=== PATIENT | male | born 1940 | race Caucasian/White ===

== ENCOUNTER 2019-08-05 08:17 | Observation (INO) | payer OTHER ==
[2019-08-05] MEDS ORDERED: NA CHLORIDE 0.9% 1,000 ML ONE (08:38)
[2019-08-05 08:50] LABS: Absolute Lymphocytes (CBC) 1.9 K/uL (0.7-4.9); Basophils % 0.8 % (0-1.3); Hematocrit 42.2 % (39.6-49.0); Lymphocytes % 12.9 % (15.3-44.8); MPV 7.9 fL (7.6-11.3); RBC Red Blood Cell Count 4.86 M/uL (4.33-5.43)
[2019-08-05 08:51] LABS: Protime INR 1.18
[2019-08-05] MEDS ORDERED: FAMOTIDINE 20 MG/2 ML VIAL IV ONE (09:01)
[2019-08-05] MEDS ORDERED: METOPROLOL TAR 50 MG TAB ONE (09:01)
--- NOTE | 2019-08-05 09:06 | ER ---
Nurse's Notes [facility] Name: Preet Rios Age: 79 yrs Sex: Male : 1940 Arrival Date: 08/05/2019 Time: 08:19 Bed 4 Private MD: Diagnosis: Chest pain, unspecified;Essential (primary) hypertension;Elevated white blood cell count Presentation: 08/05 08:25 Presenting complaint: Patient states: intermittent chest pain that began yesterday at noon. Jhony cough, fever and/or SOB. Transition of care: patient was not received from another setting of care. Onset of symptoms was August 04, 2019. Risk Assessment: Do you want to hurt yourself or someone else? Patient reports no desire to harm self or others. Initial Sepsis Screen: Does the patient meet any 2 criteria? No. Patient's initial sepsis screen is negative. Does the patient have a suspected source of infection? No. Patient's initial sepsis screen is negative. Care prior to arrival: Medication(s) given: ASA, 81 mg, x 4. 08:25 Method Of Arrival: Ambulatory ss 08:25 Acuity: YULI 3 ss Historical: - Allergies: 08:29 No Known Allergies; ss - Home Meds: 08:29 None [Active]; ss - PMHx: 08:29 Hypertension; resolved after wt loss; ss - PSHx: 08:29 Appendectomy; ss - Immunization history:: Adult Immunizations up to date. - Social history:: Smoking status: Patient/guardian denies using tobacco. - Ebola Screening: : Patient denies exposure to infectious person Patient denies travel to an Ebola-affected area in the 21 days before illness onset. - Family history:: not pertinent. Screenin:30 Abuse screen: Denies threats or abuse. Denies injuries from another. Nutritional sg screening: No deficits noted. Tuberculosis screening: No symptoms or risk factors identified. Never had TB. Fall Risk None identified. Assessment: 08:31 General: Appears in no apparent distress. well groomed, well developed, well nourished, sg Behavior is calm, cooperative, appropriate for age. Pain: Complains of pain in anterior aspect of left upper chest and mid-sternal area Quality of pain is described as aching. Neuro: Level of Consciousness is awake, alert, obeys commands, Oriented to person, place, time, Global Director [employer] Change are equal bilaterally Moves all extremities. Speech is normal, Facial symmetry appears normal. Cardiovascular: Heart tones S1 S2 present Capillary refill is brisk in bilateral fingers Patient's skin is warm and dry. Chest pain is described as mild, is located in anterior chest wall. Respiratory: Airway is patent Respiratory effort is even, unlabored, Respiratory pattern is regular, symmetrical. GI: Abdomen is round non-distended, Reports gaseousness, normal bowel habits, tolerance of fluids, tolerance of food. : No signs and/or symptoms were reported regarding the genitourinary system. EENT: No signs and/or symptoms were reported regarding the EENT system. Derm: Skin is dry, Skin is normal, Skin temperature is warm. Musculoskeletal: Circulation, motion, and sensation intact. Range of motion: intact in all extremities. Vital Signs: 08:24 BP 169 / 77; Pulse 69; Resp 16; Temp 97.2(TE); Pulse Ox 99% on R/A; Weight 99.79 kg; Height 5 ft. 8 in. (172.72 cm); Pain 0/10; 09:10 BP 164 / 78; Pulse 65; Resp 18; Pulse Ox 99% on R/A; Pain 0/10; sg 10:37 BP 123 / 87; Pulse 52; Resp 16; Temp 97.6; Pulse Ox 100% on R/A; ph 08:24 Body Mass Index 33.45 (99.79 kg, 172.72 cm) ED Course: 08:19 Patient arrived in ED. as 08:21 Terrell Flor, RN is Primary Nurse. sg 08:24 Arm band placed on right wrist. ss 08:25 Triage completed. ss 08:26 Bear Mckee MD is Attending Physician. willie 08:30 Patient has correct armband on for positive identification. Bed in low position. Call sg light in reach. Side rails up X2. quality assurance monitor body on. Pulse ox on. NIBP on. Warm blanket given. Head of bed elevated. 08:30 Initial lab(s) drawn, by me, sent to lab. Inserted saline lock: 20 gauge in right sg antecubital area, using aseptic technique. Blood collected. 08:51 XRAY Chest (1 view) In Process Unspecified. EDMS 09:04 Fausto Gruber MD is Hospitalizing Provider. willie 09:27 Warm blanket given. sg 11:35 First set of blood cultures drawn by me. sg 11:45 Second set of blood cultures drawn by me. 11:55 No provider procedures requiring assistance completed. Patient admitted, IV remains in sg place. intact, bleeding controlled, No redness/swelling at site. Pressure dressing applied. Patient maintains SpO2 saturation greater than 95% on room air. Administered Medications: 08:30 Drug: NS 0.9% 1000 ml Route: IV; Rate: 75 ml/hr; Site: right antecubital; sg 09:03 Drug: Lopressor (metoprolol TARTRATE) 50 mg Route: PO; sg 09:04 Not Given (pt reports taking 4 aspirin last night and this AM): Aspirin Chewable Tablet sg 324 mg PO once; 81 mg tablets x 4 09:04 Drug: Pepcid 20 mg Route: IVP; Site: right antecubital; sg 10:58 Drug: Lovenox 1 mg/kg Route: Sub-Q; Site: left lower abdomen; sg 11:40 Drug: morphine 2 mg Route: IVP; Site: right antecubital; sg 11:42 Drug: Zofran 4 mg Route: IVP; Site: right antecubital; sg 11:50 Drug: Rocephin - (cefTRIAXone) 1 grams Route: IVPB; Infused Over: 30 mins; Site: right sg antecubital; Outcome: 09:05 Decision to Hospitalize by Provider. [facility] [place] 11:54 Admitted to [facility] accompanied by tech, via wheelchair, room 429. 11:54 Condition: good 11:54 Instructed on the need for admit, safety practices, Demonstrated understanding of instructions. 11:56 Patient left the ED. Signatures: Dispatcher [employer] EDMS Terrell Flor RN RN Bear Mckee MD MD cha Martinez, Amelia as Smirch, Shelby, RN RN Radha Yates RN RN ph Corrections: (The following items were deleted from the chart) 08:29 08:25 Care prior to arrival: None. [facility]
--- NOTE | 2019-08-05 09:07 | EDPHYS ---
Physician Documentation [facility] Name: Preet Rios Age: 79 yrs Sex: Male : 1940 Arrival Date: 08/05/2019 Time: 08:19 Bed 4 Private MD: ED Physician Bear Mckee HPI: 08/05 08:42 This 79 yrs old Male presents to ER via Ambulatory with complaints of Chest willie Pain > 30 y/o. 08:42 The patient or guardian reports chest pain that is located primarily in the substernal willie area, anterior chest wall, left. Onset: yesterday. The pain radiates to the left arm. Associated signs and symptoms: The patient has no apparent associated signs or symptoms. The chest pain is described as a heaviness, causing indigestion, a pressure. Modifying factors: The symptoms are alleviated by nothing. the symptoms are aggravated by nothing. Severity of pain: At its worst the pain was mild moderate in the emergency department the pain has resolved and did so just prior to arrival. The patient has not experienced similar symptoms in the past. Historical: - Allergies: 08:29 No Known Allergies; ss - Home Meds: 08:29 None [Active]; ss - PMHx: 08:29 Hypertension; resolved after wt loss; ss - PSHx: 08:29 Appendectomy; ss - Immunization history:: Adult Immunizations up to date. - Social history:: Smoking status: Patient/guardian denies using tobacco. - Ebola Screening: : Patient denies exposure to infectious person Patient denies travel to an Ebola-affected area in the 21 days before illness onset. - Family history:: not pertinent. ROS: 08:42 Constitutional: Negative for fever, chills, and weight loss, Eyes: Negative for injury, willie pain, redness, and discharge, ENT: Negative for injury, pain, and discharge, Neck: Negative for injury, pain, and swelling, Respiratory: Negative for shortness of breath, cough, wheezing, and pleuritic chest pain, Abdomen/GI: Negative for abdominal pain, nausea, vomiting, diarrhea, and constipation, Back: Negative for injury and pain, : Negative for injury, bleeding, discharge, and swelling, MS/Extremity: Negative for injury and deformity, Skin: Negative for injury, rash, and discoloration, Neuro: Negative for headache, weakness, numbness, tingling, and seizure, Psych: Negative for depression, anxiety, suicide ideation, homicidal ideation, and hallucinations, Allergy/Immunology: Negative for hives, rash, and allergies, Endocrine: Negative for neck swelling, polydipsia, polyuria, polyphagia, and marked weight changes, Hematologic/Lymphatic: Negative for swollen nodes, abnormal bleeding, and unusual bruising. 08:42 Cardiovascular: Positive for chest pain, of the left clavicle and anterior aspect of left upper chest. Exam: 08:42 Constitutional: This is a well developed, well nourished patient who is awake, alert, willie and in no acute distress. Head/Face: Normocephalic, atraumatic. Eyes: Pupils equal round and reactive to light, extra-ocular motions intact. Lids and lashes normal. Conjunctiva and sclera are non-icteric and not injected. Cornea within normal limits. Periorbital areas with no swelling, redness, or edema. ENT: Nares patent. No nasal discharge, no septal abnormalities noted. Tympanic membranes are normal and external auditory canals are clear. Oropharynx with no redness, swelling, or masses, exudates, or evidence of obstruction, uvula midline. Mucous membranes moist. Neck: Trachea midline, no thyromegaly or masses palpated, and no cervical lymphadenopathy. Supple, full range of motion without nuchal rigidity, or vertebral point tenderness. No Meningismus. Chest/axilla: Normal chest wall appearance and motion. Nontender with no deformity. No lesions are appreciated. Cardiovascular: Regular rate and rhythm with a normal S1 and S2. No gallops, murmurs, or rubs. Normal PMI, no JVD. No pulse deficits. Respiratory: Lungs have equal breath sounds bilaterally, clear to auscultation and percussion. No rales, rhonchi or wheezes noted. No increased work of breathing, no retractions or nasal flaring. Abdomen/GI: Soft, non-tender, with normal bowel sounds. No distension or tympany. No guarding or rebound. No evidence of tenderness throughout. Back: No spinal tenderness. No costovertebral tenderness. Full range of motion. Skin: Warm, dry with normal turgor. Normal color with no rashes, no lesions, and no evidence of cellulitis. MS/ Extremity: Pulses equal, no cyanosis. Neurovascular intact. Full, normal range of motion. Neuro: Awake and alert, GCS 15, oriented to person, place, time, and situation. Cranial nerves II-XII grossly intact. Motor strength 5/5 in all extremities. Sensory grossly intact. Cerebellar exam normal. Normal gait. Psych: Awake, alert, with orientation to person, place and time. Behavior, mood, and affect are within normal limits. 08:42 Musculoskeletal/extremity: DVT Exam: No signs of deep vein thrombosis. no pain, no swelling, no tenderness, negative Homans' sign noted on exam, no appreciated bluish discoloration, no erythema, no increased warmth. Vital Signs: 08:24 BP 169 / 77; Pulse 69; Resp 16; Temp 97.2(TE); Pulse Ox 99% on R/A; Weight 99.79 kg; ss Height 5 ft. 8 in. (172.72 cm); Pain 0/10; 09:10 BP 164 / 78; Pulse 65; Resp 18; Pulse Ox 99% on R/A; Pain 0/10; sg 10:37 BP 123 / 87; Pulse 52; Resp 16; Temp 97.6; Pulse Ox 100% on R/A; ph 08:24 Body Mass Index 33.45 (99.79 kg, 172.72 cm) ss MDM: 08:26 Patient medically screened. [facility] 08:44 Data reviewed: vital signs, nurses notes, lab test result(s), EKG, radiologic studies, willie plain films. 08/05 08:26 Order name: Basic Metabolic Panel; Complete Time: 09:24 [facility] 08/05 08:26 Order name: CBC with Diff; Complete Time: 09:03 [facility] 08/05 08:26 Order name: LFT's; Complete Time: 09:24 [facility] 08/05 08:26 Order name: Magnesium; Complete Time: 09:24 [facility] 08/05 08:26 Order name: NT PRO-BNP; Complete Time: 09:24 [facility] 08/05 08:26 Order name: PT-INR; Complete Time: 09:03 [facility] 08/05 08:26 Order name: Troponin (emerg Dept Use Only); Complete Time: 09:24 [facility] 08/05 08:26 Order name: XRAY Chest (1 view); Complete Time: 11:05 [facility] 08/05 08:26 Order name: Lipase; Complete Time: 09:24 [facility] 08/05 11:07 Order name: Urine Dipstick--Ancillary (enter results) em1 08/05 11:08 Order name: Blood Culture Adult (2) [facility] 08/05 11:11 Order name: Urine Dipstick-Ancillary; Complete Time: 11:23 EDMS 08/05 08:26 Order name: EKG; Complete Time: 08:28 [facility] 08/05 08:26 Order name: Cardiac monitoring; Complete Time: 08:30 [facility] 08/05 08:26 Order name: EKG - Nurse/Tech; Complete Time: 08:30 [facility] 08/05 08:26 Order name: IV Saline Lock; Complete Time: 08:30 [facility] 08/05 08:26 Order name: Labs collected and sent; Complete Time: 08:30 [facility] 08/05 08:26 Order name: O2 Per Protocol; Complete Time: 08:30 [facility] 08/05 08:26 Order name: O2 Sat Monitoring; Complete Time: 08:30 [facility] 08/05 08:26 Order name: Urine Dipstick-Ancillary (obtain specimen); Complete Time: 11:05 [facility] Administered Medications: 08:30 Drug: NS 0.9% 1000 ml Route: IV; Rate: 75 ml/hr; Site: right antecubital; sg 09:03 Drug: Lopressor (metoprolol TARTRATE) 50 mg Route: PO; sg 09:04 Not Given (pt reports taking 4 aspirin last night and this AM): Aspirin Chewable Tablet sg 324 mg PO once; 81 mg tablets x 4 09:04 Drug: Pepcid 20 mg Route: IVP; Site: right antecubital; sg 10:58 Drug: Lovenox 1 mg/kg Route: Sub-Q; Site: left lower abdomen; sg 11:40 Drug: morphine 2 mg Route: IVP; Site: right antecubital; sg 11:42 Drug: Zofran 4 mg Route: IVP; Site: right antecubital; sg 11:50 Drug: Rocephin - (cefTRIAXone) 1 grams Route: IVPB; Infused Over: 30 mins; Site: right sg antecubital; Disposition: 08/05/19 09:05 Hospitalization ordered by Fausto Gruber for Observation. Preliminary diagnosis are Chest pain, unspecified, Essential (primary) hypertension, Elevated white blood cell count. - Bed requested for Telemetry/MedSurg (observation). - Status is Observation. sg - Condition is Fair. - Problem is new. - Symptoms have improved. UTI on Admission? No Signatures: Dispatcher [employer] EDTerrell Frederick RN RN Bear Murray MD MD cha Martinez, Eric em1 Barbara Carney RN RN ss Corrections: (The following items were deleted from the chart) 10:29 09:05 Hospitalization Ordered by Fausto Gruber MD for Observation. Preliminary diagnosis em1 is Chest pain, unspecified; Essential (primary) hypertension. Bed requested for Telemetry/MedSurg (observation). Status is Observation. Condition is Fair. Problem is new. Symptoms have improved. UTI on Admission? No. willie 11:24 10:29 08/05/2019 09:05 Hospitalization Ordered by Fausto Gruber MD for Observation. willie Preliminary diagnosis is Chest pain, unspecified; Essential (primary) hypertension. Bed requested for Telemetry/MedSurg (observation). Status is Observation. Condition is Fair. Problem is new. Symptoms have improved. UTI on Admission? No. em1 11:56 11:24 08/05/2019 09:05 Hospitalization Ordered by Fausto Gruber MD for Observation. sg Preliminary diagnosis is Chest pain, unspecified; Essential (primary) hypertension; Elevated white blood cell count. Bed requested for Telemetry/MedSurg (observation). Status is Observation. Condition is Fair. Problem is new. Symptoms have improved. UTI on Admission? No. willie
[2019-08-05 09:17] LABS: ALT/SGPT 18 U/L (12-78); AST/SGOT 13 U/L (15-37); Albumin 3.2 g/dL (3.4-5.0); Alkaline Phosphatase 82 U/L (45-117); BUN Blood Urea Nitrogen 13 mg/dL (7-18); Bicarbonate 28 mmol/L (21-32); Bilirubin Direct 0.2 mg/dL (0-0.2); Bilirubin Total 0.9 mg/dL (0.2-1.0); Glucose Level 114 mg/dL (74-106); Lipase 99 U/L (73-393); Magnesium 2.2 mg/dL (1.8-2.4); NT PRO-BNP 2360 pg/mL (<450); Potassium 3.6 mmol/L (3.5-5.1); Protein, Total 8.8 g/dL (6.4-8.2); Sodium Level 132 mmol/L (136-145); Troponin (Emerg Dept Use Only) < 0.02 ng/mL (0.0-0.045)
--- NOTE | 2019-08-05 09:58 | RAD REPORT ---
EXAM DESCRIPTION: Jus Single View08/05/2019 8:51 am CLINICAL HISTORY: Chest pain COMPARISON: 2009 FINDINGS: Questionable small opacity behind the left side of the heart. Right lung is clear. The heart is borderline enlarged IMPRESSION: Questionable small opacity behind the left side of the heart. PA and lateral chest seri es recommended
[2019-08-05] MEDS ORDERED: ENOXAPARIN 100 MG/ML SYR SQ ONE (10:56)
[2019-08-05 11:10] LABS: Urine Blood TRACE (NEG); Urine Glucose NEGATIVE (NEG); Urine Protein 1+ (NEG)
[2019-08-05] MEDS ORDERED: ONDANSETRON 4 MG/2 ML VIAL ONE (11:43)
[2019-08-05] MEDS ORDERED: MORPHINE 4 MG/ML SYR ONE (11:43)
[2019-08-05] MEDS ORDERED: CEFTRIAXONE/SWI 1gm 1 GM/10 ML SYR ONE (11:44)
[2019-08-05] MEDS ORDERED: NITROGLYCERIN 0.4 MG/TAB SL PRN (12:04)
[2019-08-05] MEDS ORDERED: ACETAMINOPHEN 500 MG TAB PO PRN (12:04)
[2019-08-05] MEDS ORDERED: MORPHINE 2 MG/ML SYR IV PRN (12:04)
[2019-08-05] MEDS ORDERED: AZITHROMYCIN IV 500 MG in NA CHLORIDE 0.9% 250 ML IVPB ONE (12:30)
[2019-08-05] MEDS ORDERED: ENOXAPARIN 40 MG/0.4 ML SQ SCH (13:00)
[2019-08-05 13:20] VITALS: BMI 33.3
--- NOTE | 2019-08-05 15:32 | EKG ---
Test Date: 2019-08-05 Test Time: 08:23:18 Mortgage Branch Manager: BRINA MEASUREMENT RESULTS: Intervals: Rate: 66 KS: 188 QRSD: 86 QT: 422 QTc: 442 [place]: P: 25 KS: 188 QRS: -7 T: 93 INTERPRETIVE STATEMENTS: Normal sinus rhythm Inferior infarct, age undetermined T wave abnormality, consider lateral ischemia Abnormal ECG Compared to ECG 09/06/2009 11:38:26 Atrial premature complex(es) no longer present Myocardial infarct finding still present T-wave abnormality still present Possible ischemia still present Electronically Signed On 08-05-19 15:31:00 MAILROOM ASSISTANT by Dov Evans
--- NOTE | 2019-08-05 16:02 | ECHO ---
HEIGHT: 5 ft 8 in WEIGHT: 219 lb 8.96 oz DATE OF STUDY: 08/05/[address]: Fausto Gruber MD 2-DIMENSIONAL: YES M.MODE: YES DOPPLER: YES COLOR FLOW: YES TDS: NO PORTABLE: NO DEFINITY: NO BUBBLE STUDY: NO DIAGNOSIS: CHEST PAIN CARDIAC HISTORY: CATHERIZATION: NO SURGERY: NO PROSTHETIC VALVE: NO PACEMAKER: NO MEASUREMENTS (cm) DIASTOLIC (NORMALS) SYSTOLIC (NORMALS) IVSd 1.2 (0.6-1.2) LA Diam 3.5 (1.9-4.0) LVEF 53% LVIDd 3.6 (3.5-5.7) LVIDs 2.6 (2.0-3.5) %FS 27% LVPWd 1.2 (0.6-1.2) Ao Diam 3.3 (2.0-3.7) 2 DIMENSIONAL ASSESSMENT: RIGHT ATRIUM: NORMAL LEFT ATRIUM: NORMAL RIGHT VENTRICLE: NORMAL LEFT VENTRICLE: NORMAL TRICUSPID VALVE: NORMAL MITRAL VALVE: MITRAL ANNULAR CALCIFICATION PULMONIC VALVE: NORMAL AORTIC VALVE: SCLEROSIS PERICARDIAL EFFUSION: NONE AORTIC ROOT: NORMAL LEFT VENTRICULAR WALL MOTION: NORMAL DOPPLER/COLOR FLOW: NORMAL COMMENTS: MITRAL ANNULAR CALCIFICATION. AORTIC SCLEROSIS WITH NO STENOSIS. NORMAL LEFT VENTRICULAR SIZE AND FUNCTION. TECHNOLOGIST: Linette TABARES
[2019-08-05] MEDS: RANITIDINE 150 MG TABLET PO SCH (20:10)
[2019-08-05] MEDS: METOPROLOL TAR 25 MG TAB PO SCH (20:10)
[2019-08-05] MEDS ORDERED: ATORVASTATIN 40 MG TAB PO SCH (21:00)
--- NOTE | 2019-08-06 04:19 | HP ---
Date of Admission: 08/05/2019 Primary Care Physician: None. Chief Complaint: Chest pain. Consultants: Dr. Evans with Cardiology. History Of Present Illness: Patient is an 79-year-old male with past medical history of hypertension, history of CVA, currently not taking any medications, who was in his usual state of health until 3 days prior to admission, the patient had sudden onset of left chest pain radiating to the left arm. Patient denies any nausea, vomiting, fever, chills. No ill contacts. No cough. Patient does report some abdominal discomfort with belching and burping, but no nausea or vomiting. No diarrhea. The patient's symptoms are constant, moderate , progressively worsening. Patient does have some shortness of breath with his chest pain, which is at baseline. No palpitations or diaphoresis. In the ER, his workup showed a BNP of 2000. Initial troponin was negative. EKG showed some T-wave inversions. White blood cell count was 14,000. UA was also negative. Chest x-ray showed possible small opacity on the left side of the heart. PA and lateral chest series recommended. Right lung clear. In the ER, the patient's pain was improved. He did take 4 baby aspirins prior to arrival. Past Medical History: Hypertension, history of CVA. Surgical History: Patient had a repair of his right hand after trauma and appendectomy. Allergies: NO KNOWN DRUG ALLERGIES. Social History: Patient denies any tobacco use, alcohol use, or illicit drug use. Patient is , independent in his activities of daily living. Family History: Patient states his grandfather had heart disease and father also had heart disease. Review of Systems: Ten-point systems reviewed, negative except as per HPI. Code Status: Full. Physical Examination: Vital Signs: Temperature 97.2, heart rate 69, blood pressure 169/77, respirations 16, O2 sat 99% on room air. General: Awake, alert, oriented x3, in some mild distress. Elderly male, obese , BMI 33. HEENT: Normocephalic, atraumatic. PERRLA. EOMI. Moist mucous membranes. Oropharynx is clear. Poor dentition. Conjunctivae are anicteric. Neck: Supple. No JVD. Trachea midline. CV: S1, S2. Regular rate and rhythm. Peripheral pulses present. Respiratory: Moving air well bilaterally. Some diminished breath sounds at the left base. No rhonchi, wheezing, or stridor. No use of accessory muscles. Gastrointestinal: Abdomen is soft, nontender, nondistended. Positive bowel sounds. No guarding or rigidity. Extremities: No clubbing, cyanosis, or edema. No calf tenderness. Neuro: Cranial nerves 2 through 12 intact grossly. No focal neurological deficits. Speech is normal. Skin: No rashes. Normal skin turgor. Psych: Mood is okay. Affect is full. Insight and judgment are good. Laboratory Data: UA is negative nitrite, negative leukocyte esterase, trace blood. Sodium 132, potassium 3.6, chloride 100, CO2 of 28, BUN 13, creatinine 1.29, glucose 114, calcium 8.9, magnesium 2.2. Troponin less than 0.02. BNP 2360. Albumin 3.2. WBC 14.6, H and H 14.5 and 42.2, platelets 330, neutrophils 77%. INR 1.18. Chest x-ray shows questionable small opacity behind the left side of the heart. PA and lateral chest series recommended. Right lung is clear. Heart is borderline enlarged. Assessment: An 79-year-old male with: 1. Chest pain. Rule out acute coronary syndrome. We will start on chest pain guidelines, obtain serial cardiac enzymes. On EKG, did have some changes with T-wave inversions in I and aVL. Patient has hypertension, history of stroke, 79 years old, high risk factors. Appreciate Dr. Evans's input. Echocardiogram was done earlier today, shows ejection fraction of 53%. Aortic sclerosis with no stenosis. 2. Essential hypertension, not well controlled. We will start on beta- opal and BARB inhibitor. 3. Left-sided pneumonia. Patient does have elevated white count, some shortness of breath. Chest x-ray shows possible opacity on the left side behind the heart. We will check 2 view. We will start on empiric antibiotics. Obtain blood cultures. 4. History of cerebrovascular accident. No residual weakness. 5. Obesity. Body mass index 33. Plan: Admit patient to Med-Surg, place as observation. ARUN Voice ID: [id number] YONATAN
[2019-08-06 04:46] LABS: Absolute Lymphocytes (CBC) 1.6 K/uL (0.7-4.9); Basophils % 0.9 % (0-1.3); Hematocrit 36.7 % (39.6-49.0); Lymphocytes % 12.3 % (15.3-44.8)
[2019-08-06 08:00] VITALS: BP 141/63; TEMP 98.1; O2SAT 97
[2019-08-06] MEDS: METOPROLOL TAR 25 MG TAB PO SCH (08:12)
[2019-08-06] MEDS: RANITIDINE 150 MG TABLET PO SCH (08:12)
[2019-08-06] MEDS ORDERED: CEFTRIAXONE/SWI 1gm 1 GM/10 ML SYR IVP SCH (09:00)
[2019-08-06] MEDS ORDERED: lisinopriL 10 MG TAB PO SCH (09:00)
[2019-08-06] MEDS ORDERED: ENOXAPARIN 40 MG/0.4 ML SQ SCH (09:00)
[2019-08-06] MEDS ORDERED: AZITHROMYCIN IV 500 MG in NA CHLORIDE 0.9% 250 ML IVPB SCH (09:00)
[2019-08-06] MEDS ORDERED: ASPIRIN EC 81 MG TAB PO SCH (09:00)
--- NOTE | 2019-08-06 10:14 | RAD REPORT ---
EXAM DESCRIPTION: RAD - Chest Pa And Lat (2 Views) - 08/06/2019 7:02 am CLINICAL HISTORY: PNA left lobe Chest pain. COMPARISON: Chest Single View dated 08/05/2019; CHEST SINGLE VIEW dated 09/06/2009; CHEST PA AND LAT 2 VIEW dated 07/16/2002 FINDINGS: Mild improvement in left lower lung infiltrate/pneumonia since comparative study. The lung s are otherwise grossly clear. The heart is normal in size. No displaced fractures. IMPRESSION: Mild improvement in left base aeration since comparative study.
--- NOTE | 2019-08-07 01:29 | DS ---
Date of Discharge: 08/06/2019 Lap Cutter Truer Operator: Dr. Evans with Cardiology. Discharge Diagnoses: 1.Chest pain, acute coronary syndrome ruled out atypical chest pain. 2.Left lower lobe pneumonia, improving. 3.Essential hypertension, not well controlled. 4.History of cerebrovascular accident. 5.Obesity, BMI 33. 6.Prediabetes. 7.Hyponatremia. Hospital Course: Patient is an 79-year-old male, past medical history of CVA, hypertension, was not being seen by regular physician, not on any medication, comes in with 3 days of chest pain, mild shor tness of breath. The patient's white blood cell count was elevated at 14.6. He did complain of ches t pain radiating to the left arm. He was admitted to the hospital for further evaluation. Cardiac workup was done. ACS was ruled out. Cardiac enzymes were negative. Lipid panel was reviewe d. TSH was also normal. He did not appear to be septic, did have mildly elevated BNP. Echocardiogr am was obtained, showed normal ejection fraction 53%. Did have some aortic sclerosis with no stenosi s. Dr. Evans with Cardiology was consulted. He evaluated the patient and recommended outpatient s tress test with no further inpatient testing. The patient's chest x-ray, however, did show some opac ity on the left lobe. He did have an elevated white blood cell count and some shortness of breath. He had presumptive atypical pneumonia. He was started on IV antibiotics and cultures were obtained. Cultures remained negative to date. He had no significant cough, his symptoms improved. His repeat chest x-ray showed improvement in the opacity and infiltrate. The patient was doing well on room ai r. He was able to ambulate without difficulty. The patient's pain had resolved. He was then cleare d for discharge and was sent home in a stable condition. He was counseled regarding his prediabetes. Hemoglobin A1c was 6.2%. Recommend trial of 3 months of diet and exercise and repeat hemoglobin A1 c level. If not improving, may benefit from metformin. Patient was also given a list of primary car e physicians and was given prescriptions for blood pressure medications. He also needs to be on an a spirin due to his history of stroke. He has no residual weakness. He was counseled regarding his ob esity. He needs to have diet and exercise modification. Patient will need to follow up with Cardiol Dr. Cristina vines in 2 weeks for outpatient stress test. Establish care with primary care physician i n the area. Return to ER for worsening condition. Diet: Heart healthy. Activity: As tolerated. Medications: As per medication reconciliation list. Finish off course of antibiotics. Patient will also be on statin due to his history of stroke. He will need to have a repeat liver function test i n 3 months. He understands that statins may cause myopathy and depending on his tolerance, may need to lower his dose. Physical Examination: General: Awake, alert, and oriented x3, elderly obese male. CV: S1, S2. Respiratory: Moving air well bilaterally. Abdomen: Abdomen is soft, nontender, nondistended. Positive bowel sounds. Extremities: No clubbing, cyanosis, or edema. Neurologic: Nonfocal. SA/MODL Voice ID: [id number] Report ID: [id number]
--- NOTE | 2019-08-07 20:02 | CON ---
Date of Consultation: 08/06/2019 Reason For Consultation: Chest pain. History Of Present Illness: Mr. Rios is an 79-year-old white male without any significant past medi katy history. He came in with rather atypical chest pain. His chest pain has been going on for about a week or 2, it is left upper chest, radiating to the left shoulder and the arm. He did not have an y nausea, vomiting, diaphoresis, PND, orthopnea, pedal edema, palpitation, or syncope. By the time I saw him, he had already ruled out for an MN, but was significantly hypertensive at 183/84. He had a white count of 15,000, BNP was 2360. EKG was unremarkable. Chest x-ray was unremarkable. His echo cardiogram was normal. Past Medical History: Negative. Allergies: NONE. Review of Systems: Negative. Social History: Negative. Family History: Noncontributory. Physical Examination: Vital Signs: Blood pressure was 183/84. HEENT: Negative. Neck: Supple with no bruit. Chest: Clear to auscultation and percussion. Cardiac: Revealed a regular rhythm and rate. No murmurs, gallops, or rubs. Abdomen: Benign. Extremities: No clubbing, cyanosis, or edema. Diagnostic Data: All listed earlier. Impression And Plan: Atypical chest pain. Normal echo, normal EKG, normal troponin. Patient has no risk factors except for his age and gender, and his obvious hypertension. I am comfortable with him going home on an antihypertensive medication, possibly an BARB inhibitor and ARB or a beta-opal. I would make arrangements for him to have an outpatient stress test in the near future. Case was dis cussed with Dr. Gruber. Patient can go home whenever it is okay with him. FAUSTO/MODL Voice ID: [id number] Report ID: [id number]
== END 2019-08-06 11:27 | disposition home or self-care (01) ==
LOC: ER 08:17 → ERHOLD 09:55 → 4TH 11:54
PROVIDERS: ADMIT Family Medicine; ATTEND Family Medicine
DX: J18.9 Pneumonia, unspecified organism (principal); R07.9 Chest pain, unspecified; I10 Essential (primary) hypertension; E66.9 Obesity, unspecified; Z68.33 Body mass index [BMI] 33.0-33.9, adult; R73.03 Prediabetes; E87.1 Hypo-osmolality and hyponatremia; Z86.73 Personal history of transient ischemic attack (TIA), and cerebral infarction without residual deficits
CPT/HCPCS: 93005; 93306; 87040 ×2; 85025 ×2; 80048 ×2; 36415; 83735; 85610; 80061; 80076; 84443; 81003; 83036; 84484 ×3; 83690; 83880; 71045; 71046; 94760 ×2; 96375; 96372; 96374; 99285; J0456 ×2; J1650 ×2; J0696 ×2; J7030 ×3; J2405; G0378 ×3

== ENCOUNTER 2023-02-18 19:13 | Inpatient (IN) | payer OTHER ==
[2023-02-18 20:22] LABS: Absolute Lymphocytes (CBC) 1.1 K/uL (0.7-4.9); Hematocrit 44.6 % (39.6-49.0); Lymphocytes % 6.4 % (15.3-44.8); MCV 89.2 fL (80-100); MPV 7.6 fL (7.6-11.3)
[2023-02-18 20:34] LABS: Albumin 3.5 g/dL (3.4-5.0); Bilirubin Direct 0.3 mg/dL (0-0.2); Bilirubin Indirect, Calculated 0.8 mg/dL (0.2-0.8); Bilirubin Total 1.1 mg/dL (0.2-1.0); Potassium 3.7 mEq/L (3.5-5.1); Protein, Total 8.9 g/dL (6.4-8.2); Troponin High Sensitivity 27.2 pg/mL (<58.9)
--- NOTE | 2023-02-18 20:43 | RAD REPORT ---
EXAM DESCRIPTION: RAD - Chest Single View - 02/18/2023 8:18 pm CLINICAL HISTORY: CHEST PAIN Chest pain. COMPARISON: <Comparisons> FINDINGS: Portable technique limits examination quality. Moderate bilateral pulmonary opacities likely representing pulmonary edema. The heart is moderately e nlarged. No displaced fractures. IMPRESSION: Moderate CHF versus volume overload.
[2023-02-18 21:09] LABS: Blood Morphology Comment NOT SEEN (NOT SEEN); Platelet Estimate ADEQ
[2023-02-18] MEDS ORDERED: ONDANSETRON 4 MG/2 ML VIAL ONE (21:09)
--- NOTE | 2023-02-18 21:19 | RAD REPORT ---
EXAM DESCRIPTION: CT - Chest Abdomen Pelvis W Cont - 02/18/2023 9:10 pm CLINICAL HISTORY: Chest and abdomen pain. ABDOMINAL DISTENTION COMPARISON: No comparisons TECHNIQUE: Approximately 100 mL nonionic IV contrast was administered to the patient. All CT scans are performed using dose optimization technique as appropriate and may include automated exposure control or mA/KV adjustment according to patient size. FINDINGS: Moderate emphysema with fibrotic changes.No pleural or pericardial effusion.No intrathorac ic adenopathy. The liver, spleen, pancreas, adrenal glands are within normal limits. Bilateral benign renal cysts, l argest on the right measuring 10 cm. Cholelithiasis with distended gallbladder and probable gallbladd er wall edema. No bowel obstruction, free air, free fluid or abscess. Normal appendix. Sigmoid diverticulosis coli w ithout diverticulitis. No pathologic lymphadenopathy in the abdomen or pelvis. No worrisome osseous finding. IMPRESSION: Cholelithiasis with distended and edematous gallbladder.Acute cholecystitis is likely pr esent.
[2023-02-18] MEDS ORDERED: NA CHLORIDE 0.9% 100 ML ONE (22:27)
[2023-02-18] MEDS ORDERED: PIPERACIL/TAZO 3.375 GM VIAL IV ONE (22:27)
[2023-02-18] MEDS ORDERED: D5.45NS W/KCL 20MEQ 1,000 ML IV ONE (22:27)
--- NOTE | 2023-02-18 22:51 | ER ---
Nurse's Notes [facility] Name: Preet Rios Age: 82 yrs Sex: Male : 1940 Arrival Date: 02/18/2023 Time: 19:13 Bed 6 Private MD: Diagnosis: Acute cholecystitis Presentation: 02/18 19:31 Chief complaint: Patient states: n/v that started this morning. pt has been unable to as6 keep down food, c/o feelings of indigestion. Coronavirus screen: At this time, the client does not indicate any symptoms associated with coronavirus-19. Ebola Screen: No symptoms or risks identified at this time. Initial Sepsis Screen: Does the patient meet any 2 criteria? No. Patient's initial sepsis screen is negative. Does the patient have a suspected source of infection? No. Patient's initial sepsis screen is negative. Risk Assessment: Do you want to hurt yourself or someone else? Patient reports no desire to harm self or others. Onset of symptoms was February 18, 2023. 19:31 Method Of Arrival: Ambulatory as6 19:31 Acuity: YULI 3 as6 Triage Assessment: 19:35 General: Appears in no apparent distress. Behavior is calm, cooperative. Pain: as6 Complains of pain in abdomen. Cardiovascular: Reports chest pain. GI: Reports upper abdominal pain, nausea, vomiting. Historical: - Allergies: 19:35 No Known Allergies; as6 - PMHx: 19:35 None; as6 - PSHx: 19:35 arm; as6 - Immunization history:: Client reports having NOT received the Covid vaccine. - Social history:: Smoking status: Patient denies any tobacco usage or history of. - Family history:: not pertinent. Screenin:10 [facility] ED Fall Risk Assessment (Adult) History of falling in the last 3 months, lg3 including since admission No falls in past 3 months (0 pts). Abuse screen: Denies threats or abuse. Denies injuries from another. Nutritional screening: No deficits noted. Tuberculosis screening: No symptoms or risk factors identified. Assessment: 21:10 General: Appears in no apparent distress. comfortable, Behavior is calm, cooperative. lg3 Pain: Complains of pain in chest Pain does not radiate. Pain currently is 3 out of 10 on a pain scale. Pain began 1 day ago. Neuro: No deficits noted. Plummer Agitation-Sedation Scale (RASS): 0 - Alert and Calm Level of Consciousness is awake, alert, obeys commands, Oriented to person, place, time, situation. Cardiovascular: No deficits noted. Capillary refill < 3 seconds Clubbing of nail beds is absent JVD is absent Patient's skin is warm and dry. Chest pain quality is heaviness, indigestion, pressure. Respiratory: No deficits noted. Airway is patent Respiratory effort is even, unlabored, Respiratory pattern is regular, symmetrical. GI: No deficits noted. Reports upper abdominal pain, indigestion, nausea. : No deficits noted. No signs and/or symptoms were reported regarding the genitourinary system. EENT: No deficits noted. No signs and/or symptoms were reported regarding the EENT system. Derm: No deficits noted. No signs and/or symptoms reported regarding the dermatologic system. Skin is intact, is thin, Skin is dry, Skin is normal, Skin temperature is warm. Musculoskeletal: No deficits noted. No signs and/or symptoms reported regarding the musculoskeletal system. Circulation, motion, and sensation intact. Range of motion: intact in all extremities. 22:37 Reassessment: Patient appears in no apparent distress at this time. No changes from lg3 previously documented assessment. Patient and/or family updated on plan of care and expected duration. Pain level reassessed. Patient is alert, oriented x 3, equal unlabored respirations, skin warm/dry/pink. Patient states feeling better. Vital Signs: 19:31 BP 170 / 72; Pulse 68; Resp 18 S; Temp 97.7(TE); Pulse Ox 99% on R/A; Weight 81.65 kg as6 (R); Height 5 ft. 7 in. (R); Pain 7/10; 21:10 BP 181 / 75; Pulse 62; Resp 18 S; Pulse Ox 99% on R/A; lg3 22:37 BP 175 / 64; Pulse 64; Resp 17 S; Pulse Ox 98% on R/A; lg3 19:31 Body Mass Index 28.19 (81.65 kg, 170.18 cm) as6 19:31 Pain Scale: Adult as6 ED Course: 19:17 Patient arrived in ED. es 19:34 Triage completed. as6 19:36 Arm band placed on. as6 19:40 Rico Boss MD is Attending Physician. kdr 20:08 Inserted saline lock: 20 gauge in right antecubital area, using aseptic technique. jb5 Blood collected. 20:09 Basic Metabolic Panel Sent. jb5 20:09 CBC with Diff Sent. jb5 20:09 LFT's Sent. jb5 20:09 Magnesium Sent. jb5 20:09 NT PRO-BNP Sent. jb5 20:09 Troponin HS Sent. jb5 20:20 XRAY Chest (1 view) In Process Unspecified. EDMS 20:21 Attending Physician role handed off by Rico Boss MD sp4 20:21 Arslan Kaplan MD is Attending Physician. sp4 20:57 Tiff Vo, JACOBO is Primary Nurse. lg3 21:10 Patient has correct armband on for positive identification. Placed in gown. Bed in low lg3 position. Call light in reach. Side rails up X 1. Client placed on continuous cardiac and pulse oximetry monitoring. NIBP monitoring applied. milk powder grinder on. Door closed. Noise minimized. Warm blanket given. Family accompanied patient. 21:10 Patient maintains SpO2 saturation greater than 95% on room air. lg3 21:12 CT Chest, Abdomen, Pelvis - W/Contrast In Process Unspecified. EDMS 22:12 Blood Culture Adult (2) Sent. lg3 22:12 Lactate w/ 2H reflex if indic. Sent. lg3 22:51 Marcus Flor is Hospitalizing Provider. sp4 23:25 No provider procedures requiring assistance completed. Patient admitted, IV remains in lg3 place. intact, No redness/swelling at site. Administered Medications: 21:07 Drug: Ondansetron IVP 4 mg Route: IVP; Site: right antecubital; vc1 22:12 Follow up: Response: No adverse reaction lg3 22:34 Drug: D5-1/2 NS with KCl IV 20 mEq/L 1000 ml Route: IV; Rate: 100 ml/hr; Site: right lg3 antecubital; 22:34 Drug: Piperacillin-Tazobactam IVPB 3.375 grams Route: IVPB; Infused Over: 60 mins; lg3 Site: right antecubital; 23:25 Follow up: Response: No adverse reaction; IV Status: Completed infusion; IV Intake: lg3 100ml Medication: 23:26 VIS not applicable for this client. lg3 Intake: 23:25 IV: 100ml; Total: 100ml. lg3 Outcome: 22:51 Decision to Hospitalize by Provider. sp4 23:26 Admitted to Med/surg accompanied by tech, via wheelchair, room 422. lg3 23:26 Condition: stable 23:26 Instructed on the need for admit, Demonstrated understanding of instructions. 23:47 Patient left the ED. vc1 Signatures: Dispatcher [employer] Rico Ellis MD MD kdr Salyer, Edna es Broussard, Jennifer jb5 Tiff Vo RN RN lg3 Saturnino Richards RN RN as6 Geetha Clinton RN RN vc1 Arslan Kaplan MD MD sp4
--- NOTE | 2023-02-18 22:51 | EDPHYS ---
Physician Documentation [facility] Name: Preet Rios Age: 82 yrs Sex: Male : 1940 Arrival Date: 02/18/2023 Time: 19:13 Bed 6 Private MD: ED Physician Arslan Kaplan HPI: 02/18 22:40 This 82 yrs old Male presents to ER via Ambulatory with complaints of Chest sp4 Pain, Vomiting, INDEGESTION. 22:40 Very pleasant 82-year-old male with history of hypertension presents moderate fairly sp4 diffuse abdominal pain starting last night associated with multiple episodes of vomiting and indigestion. Symptoms have intensified prompting emergency room visit today. Patient's primary MD is Dr. Yang from [facility]. Historical: - Allergies: 19:35 No Known Allergies; as6 - PMHx: 19:35 None; as6 - PSHx: 19:35 arm; as6 - Immunization history:: Client reports having NOT received the Covid vaccine. - Social history:: Smoking status: Patient denies any tobacco usage or history of. - Family history:: not pertinent. ROS: 22:40 Constitutional: Negative for fever, chills, and weight loss, Eyes: Negative for injury, sp4 pain, redness, and discharge, ENT: Negative for injury, pain, and discharge, Neck: Negative for injury, pain, and swelling, Cardiovascular: Negative for chest pain, palpitations, and edema, Respiratory: Negative for shortness of breath, cough, wheezing, and pleuritic chest pain, Abdomen/GI: Negative for diarrhea, and constipation, positive for diffuse abdominal pain nausea and vomiting. Back: Negative for injury and pain, : Negative for injury, bleeding, discharge, and swelling, MS/Extremity: Negative for injury and deformity, Skin: Negative for injury, rash, and discoloration, Neuro: Negative for headache, weakness, numbness, tingling, and seizure, Psych: Negative for depression, anxiety, Allergy/Immunology: Negative for hives, rash, and allergies Endocrine: Negative for neck swelling, polydipsia, polyuria, polyphagia, and weight changes Hematologic/Lymphatic: Negative for swollen nodes, abnormal bleeding, and unusual bruising Exam: 22:40 Constitutional: This is a well developed, well nourished patient who is awake, alert, sp4 and in no acute distress. Head/Face: Normocephalic, atraumatic. Eyes: Pupils equal round and reactive to light, extra-ocular motions intact. Lids and lashes normal. Conjunctiva and sclera are not injected. Cornea within normal limits. Periorbital areas with no swelling, redness, or edema. ENT: Nares patent. No nasal discharge, no septal abnormalities noted. Tympanic membranes are normal and external auditory canals are clear. Oropharynx with no redness, swelling, or masses, exudates, or evidence of obstruction, uvula midline. Mucous membranes moist. Neck: Trachea midline, no thyromegaly or masses palpated, and no cervical lymphadenopathy. Supple, full range of motion without nuchal rigidity, or vertebral point tenderness. Chest/axilla: Normal chest wall appearance and motion. Nontender with no deformity. No lesions are appreciated. Cardiovascular: Regular rate and rhythm with a normal S1 and S2. No gallops, murmurs, or rubs. Normal PMI, no JVD. No pulse deficits. Respiratory: Lungs have equal breath sounds bilaterally, clear to auscultation and percussion. No rales, rhonchi or wheezes noted. No increased work of breathing, no retractions or nasal flaring. Abdomen/GI: Soft, mild to moderate diffuse abdominal tenderness without rebound, without signs of peritonitis, without distention. No rigidity. Back: No spinal tenderness. No costovertebral tenderness. Male : Normal genitalia with no discharge or lesions. Skin: Warm, dry with normal turgor. Normal color with no rashes, no lesions, and no evidence of cellulitis. MS/ Extremity: Pulses equal, no cyanosis. Neurovascular intact. Full, normal range of motion. Neuro: Awake and alert, GCS 15, oriented to person, place, time, and situation. Cranial nerves II-XII grossly intact. Motor strength 5/5 in all extremities. Sensory grossly intact. Psych: Awake, alert, with orientation to person, place and time. Behavior, mood, and affect are within normal limits 22:49 ECG was reviewed by the Attending Physician. There is EKG time 1948, normal sinus sp4 rhythm at a rate of 66, right bundle branch block otherwise normal EKG. Vital Signs: 19:31 BP 170 / 72; Pulse 68; Resp 18 S; Temp 97.7(TE); Pulse Ox 99% on R/A; Weight 81.65 kg as6 (R); Height 5 ft. 7 in. (R); Pain 7/10; 21:10 BP 181 / 75; Pulse 62; Resp 18 S; Pulse Ox 99% on R/A; lg3 22:37 BP 175 / 64; Pulse 64; Resp 17 S; Pulse Ox 98% on R/A; lg3 19:31 Body Mass Index 28.19 (81.65 kg, 170.18 cm) as6 19:31 Pain Scale: Adult as6 MDM: 20:21 ED course: Patient care assumed from daytime provider at 8 PM.. sp4 20:22 Patient medically screened. sp4 22:40 Differential diagnosis: acute pericarditis, anxiety, chest wall pain, cholecystitis, sp4 Cholelithiasis costochondritis, esophagitis, gastritis. 22:46 Data reviewed: vital signs, nurses notes, old medical records, lab test result(s), sp4 cardiac enzymes, electrolytes, hepatic panel, urinalysis, EKG, radiologic studies, CT scan, plain films, ultrasound. Consideration of Admission/Observation Patient was admitted/placed on observation. Escalation of care including admission/observation considered. Management of patient was discussed with the following: Tip Out Worker: Dr. Blanco with general surgery.. Primary Care Provider: Hospitalist admission team... ED course: . 22:50 ED course: Patient CT revealed acute cholecystitis, general surgery was consulted, sp4 patient will be admitted to hospitalist team and ultrasound will be obtained of the right upper quadrant.. 02/18 19:56 Order name: Basic Metabolic Panel; Complete Time: 22:03 [facility] 02/18 19:56 Order name: CBC with Diff; Complete Time: 22:03 [facility] 02/18 19:56 Order name: LFT's; Complete Time: 22:03 [facility] 02/18 19:56 Order name: Magnesium; Complete Time: 22:03 [facility] 02/18 19:56 Order name: NT PRO-BNP; Complete Time: 22:03 [facility] 02/18 19:56 Order name: Troponin HS; Complete Time: 22:03 [facility] 02/18 20:27 Order name: Manual Differential; Complete Time: 22:03 EDIN 02/18 20:37 Order name: Lactate w/ 2H reflex if indic.; Complete Time: 23:06 sp4 02/18 20:37 Order name: Blood Culture Adult (2) 4 02/18 21:05 Order name: Lipase; Complete Time: 22:03 EDMS 02/18 19:56 Order name: XRAY Chest (1 view); Complete Time: 22:03 [facility] 02/18 20:37 Order name: CT Chest, Abdomen, Pelvis - W/Contrast; Complete Time: 22:03 sp4 02/18 22:10 Order name: [facility] 02/18 19:56 Order name: EKG; Complete Time: 19:57 [facility] 02/18 19:56 Order name: Cardiac monitoring; Complete Time: 20:09 kdr 02/18 19:56 Order name: EKG - Nurse/Tech; Complete Time: 20:09 [facility] 02/18 19:56 Order name: IV Saline Lock; Complete Time: 20:09 [facility] 02/18 19:56 Order name: Labs collected and sent; Complete Time: 20:09 [facility] 02/18 19:56 Order name: O2 Per Protocol; Complete Time: 20:49 [facility] 02/18 19:56 Order name: O2 Sat Monitoring; Complete Time: 20:49 [facility] 02/18 22:10 Order name: NPO; Complete Time: 22:12 sp4 EC:49 Rate is 66 beats/min. Rhythm is regular, Normal Sinus Rhythm. QRS Miller is Normal. MS sp4 interval is normal. QRS interval is prolonged. T waves are Normal. No ST changes noted. Clinical impression: No evidence of ischemia. Interpreted by me. Administered Medications: 21:07 Drug: Ondansetron IVP 4 mg Route: IVP; Site: right antecubital; vc1 22:12 Follow up: Response: No adverse reaction lg3 22:34 Drug: D5-1/2 NS with KCl IV 20 mEq/L 1000 ml Route: IV; Rate: 100 ml/hr; Site: right lg3 antecubital; 22:34 Drug: Piperacillin-Tazobactam IVPB 3.375 grams Route: IVPB; Infused Over: 60 mins; lg3 Site: right antecubital; 23:25 Follow up: Response: No adverse reaction; IV Status: Completed infusion; IV Intake: lg3 100ml Disposition Summary: 02/18/23 22:51 Hospitalization Ordered Hospitalization Status: Inpatient Admission sp4 Provider: Marcus Folr sp4 Location: Telemetry/MedSur (Inpatient) sp4 Condition: Stable sp4 Problem: new sp4 Symptoms: are unchanged sp4 Bed/Room Type: Standard sp4 Room Assignment: 422(02/18/23 23:13) mb9 Diagnosis - Acute cholecystitis sp4 Forms: - Medication Reconciliation Form sp4 - SBAR form sp4 Signatures: Dispatcher [employer] EDMS Rico Boss MD MD kdr Tiff Vo RN RN lg3 Saturnino Richards RN RN as6 Geetha Clinton RN RN vc1 Carol Ramos, PA-C PA-C sb4 Nikia Ansari RN RN mb9 Arslan Kaplan MD MD sp4 Corrections: (The following items were deleted from the chart) 21:05 20:37 LIPASE+C.LAB.BRZ ordered. EDMS EDMS 23:13 22:51 sp4 mb9
--- NOTE | 2023-02-18 23:09 | P.HP ---
Certification for Inpatient Patient admitted to: Inpatient With expected LOS: <2 Midnights Patient will require the following post-hospital care: None Practitioner: I am a practitioner with admitting privileges, knowledge of patient current condition, hospital course, and medical plan of care. Services: Services provided to patient in accordance with Admission requirements found in Title 42 Section 412.3 of the Code of Federal Regulations Patient History Date of Service: 02/18/23 Reason for admission: Cholecystitis History of Present Illness: Mr. Rios is an 82 year old male with past medical history of hypertension who presented to the emergency department with complaints of nausea, vomiting, and abdominal pain that began this morning. he has not been able to hold anything down. His labs are significant for WBC 17 with left shift and bandemia, sodium 131, chloride 97, tbili 1.1, alk phos 155, BNP 3500. CT chest abdomen pelvis showed "cholelithiasis with distended and edematous gallbladder. Acute cholecystitis is likely present." Gallbladder US pending. General surgery, Dr. Blanco, was contacted, evaluated patient at bedside and recommended MRCP. Patient was started on zosyn and will be admitted for further management. Allergies No Known Allergies Allergy (Unverified 08/05/19 11:55) Home medications list reviewed: Yes Home Medications: Aspirin [Aspirin EC 81 MG] 81 mg PO DAILY #30 tablet. 08/06/19 Atorvastatin Calcium [Lipitor] 40 mg PO BEDTIME #30 tab 08/06/19 Azithromycin Tab [Zithromax*] 250 mg PO DAILY #4 tab 08/06/19 Cefuroxime Axetil [Cefuroxime] 500 mg PO BID #12 tab 08/06/19 Metoprolol Tartrate [Lopressor*] 25 mg PO BID #60 tab 08/06/19 Ranitidine [Zantac*] 150 mg PO BID tab 08/06/19 lisinopriL [Prinivil*] 10 mg PO DAILY #30 tab 08/06/19 - Past Medical/Surgical History Diabetic: No -: Hypertension -: Appendectomy -: Tonsillectomy -: Right hand and Wrist surgery Psychosocial/ Personal History: Patient lives at home with his . - Family History Mother -: Lung disease, Cancer Notes: Lung cancer - Social History Smoking Status: Never smoker Alcohol use: No CD- Drugs: No Caffeine use: Yes Place of Residence: Home Review of Systems Gastrointestinal: Nausea, Vomiting, Abdominal Pain Physical Examination - Vital Signs Temperature: 97.7 F Blood Pressure: 175/64 Pulse: 64 Respirations: 17 Pulse Ox (%): 98 - Physical Exam General: Alert, In no apparent distress HEENT: Atraumatic, EOMI, Sclerae nonicteric Neck: Supple, 2+ carotid pulse no bruit, No LAD Respiratory: Clear to auscultation bilaterally, Normal air movement Cardiovascular: Regular rate/rhythm, Normal S1 S2 Gastrointestinal: Non-distended, No rebound, No guarding, Tenderness Musculoskeletal: No tenderness Integumentary: No rashes Neurological: Normal speech, Normal affect - Studies Laboratory Data (last 24 hrs) 02/18/23 20:37: Lipase Cancelled 02/18/23 20:00: WBC 17.80 H, Hgb 14.7, Hct 44.6, Plt Count 343 02/18/23 20:00: Sodium 131 L, Potassium 3.7, BUN 16, Creatinine 1.25, Glucose 157 H, Magnesium 2.0, Total Bilirubin 1.1 H, AST 17, ALT 19, Alkaline Phosphatase 155 H, Lipase 26 Assessment and Plan - Problems (Diagnosis) (1) Cholecystitis Current Visit: Yes Status: Acute (2) Hypertension Current Visit: Yes Status: Chronic Qualifiers: Hypertension type: primary hypertension Qualified Code(s): I10 - Essential (primary) hypertension - Plan Patient is admitted for further management of acute cholecystitis. Gallbladder US pending. MRCP ordered for the morning. NPO. Continue zosyn and IV fluids. PRN pain medications and antiemetics. Does not meet sepsis criteria at this time. Monitor and replete electrolytes per protocol. Reconcile and continue home medications. VTE prophylaxis. Full code. Discharge Plan: Home Plan to discharge in: 48 Hours - Advance Directives Does patient have a Living Will: No Does patient have a Durable POA for Healthcare: No - Code Status/Comfort Care Code Status Assessed: Yes Code Status: Full Code Physician Review: Patient Assessed, Agree with Above Assessment and Plan Critical Care: No Time Spent Managing Pts Care (In Minutes): 50
[2023-02-18] MEDS: D5.45NS W/KCL 20MEQ 1,000 ML IV SCH (23:53)
[2023-02-18] MEDS ORDERED: ONDANSETRON 4 MG/2 ML VIAL IV PRN (23:53)
[2023-02-18] MEDS ORDERED: MORPHINE 4 MG/ML SYR IV PRN (23:53)
[2023-02-19] MEDS: HYDRALAZINE HCL 20 MG/ML VIAL IV PRN (01:36)
[2023-02-19 02:21] VITALS: BMI 32.1
--- NOTE | 2023-02-19 02:45 | CON ---
Date of Consultation: 02/18/2023 Reason For Service: Acute cholecystitis, symptomatic cholelithiasis, acute abdominal pain. History Of Present Illness: This is the case of an 82-year-old patient, who was eating fried chicken . After that, developed epigastric right upper quadrant pain radiating to the back, associated with nausea. He did not improve, so he was brought to the ER and complete evaluation was done and found t o have acute cholecystitis, symptomatic cholelithiasis on CAT scan and a surgical consult was javi sabillon. The patient denies any trauma. Denies any dysuria, hematuria, hematochezia, or melena. Denies a ny recent traveling out of the country. Denies any family member sick at home. Review of Systems: As above in HPI. Ten points otherwise unremarkable. Allergies: NONE. Past Medical History: None. Past Surgical History: None. Social History: He does not smoke. He does not drink alcohol. Family History: Noncontributory. Unknown last colonoscopy. His primary doctor, he says, Dr. Akers, but he has not seen that doctor in about 2 to 3 years as per patient [facility] Examination: Vital Signs: Reviewed. General: Patient is awake, alert. HEENT: Pupils are equal and reactive. Anicteric. Neck: Supple. Chest: Clear. Heart: S1, S2. Abdomen: Epigastric right upper quadrant pain with Baez sign positive. Breasts: Deferred. Rectal: Deferred. Extremities: Good capillary refill. Laboratory Data: Blood work shows WBC count of 17.8, hemoglobin 14.7, platelets of 343. Sodium is 1 31, creatinine is 1.25, glucose 157, total bilirubin of 1.1, lipase 26. CAT scan of the abdomen and pelvis was done, interpreted by Dr. Hull as cholelithiasis with distended and edematous gallbladder, acute cholecystitis, likely present. Assessment: This is an 82-year-old patient with acute cholecystitis, symptomatic cholelithiasis that is on CT scan with Baez sign. The patient has had an MRCP pending due to mild increased LFTs. Th e benefits, alternatives, and risks of laparoscopy, possible open cholecystectomy fully explained to the patient which include, but not limited to infection, bleeding, damage to adjacent structures, ane sthesia complication, choledocholithiasis, bile leak, pancreatitis, [place], and even . He also unde rstands this may not relieve any symptoms. He might need more than one surgical intervention. He un derstands the importance also as an outpatient, his colonoscopies. We will see what the MRCP shows. If we see there is a stone in the common bile duct, then we may need GI evaluation. BENITO/CANELO Voice ID: [id number] Report ID: [id number]
[2023-02-19 04:03] LABS: Hematocrit 40.6 % (39.6-49.0); Lymphocytes % 5.1 % (15.3-44.8); MCV 88.2 fL (80-100); MPV 8.1 fL (7.6-11.3); RBC Red Blood Cell Count 4.61 M/uL (4.33-5.43)
[2023-02-19 04:27] LABS: Albumin 3.3 g/dL (3.4-5.0); Magnesium 1.9 mg/dL (1.6-2.4); Phosphorus 2.2 mg/dL (2.5-4.9); Potassium 3.6 mEq/L (3.5-5.1)
[2023-02-19] MEDS ORDERED: POTASSIUM PHOS IN 0.9 % NACL 15 MMOL/250 ML BAG IV ONE (07:00)
[2023-02-19] MEDS ORDERED: PNEUMOCOCCAL VACCINE 0.5 ML IMVAC ONE (08:00)
[2023-02-19] MEDS: PIPER TAZO 3.375 GM in NA CHLORIDE 0.9% 100 ML IV SCH ×2 (08:24→17:36)
[2023-02-19] MEDS: ACETAMINOPHEN 325 MG TABLET PO PRN ×2 (08:34→20:52)
[2023-02-19] MEDS: D5.45NS W/KCL 20MEQ 1,000 ML IV SCH (11:47)
--- NOTE | 2023-02-19 12:00 | RAD REPORT ---
EXAM DESCRIPTION: MRI - Cholangiogram - 02/19/2023 11:49 am CLINICAL HISTORY: cholecystitis, elevated alk phos COMPARISON: Chest Abdomen Pelvis W Cont dated 02/18/2023; Abdomen Exam Limited dated 02/18/2023 FINDINGS: Three-dimensional MRCP was performed using maximum intensity projection reconstruction on the same work station. No intrahepatic biliary tree dilatation is seen. The common bile duct is normal caliber without evide nce of retained stone, stricture or mass. The pancreatic duct is not pathologically dilated. There is significant thickening of the wall of gallbladder with surrounding fluid and multiple gallst ones identified. Limited T2 sequences through the abdomen demonstrates no bulky adenopathy, significant free fluid or abscess. Benign appearing bilateral renal cysts, large on the right measuring 10 cm. IMPRESSION: Acute cholecystitis is suspected. No pathologic biliary tree dilatation.
--- NOTE | 2023-02-19 12:35 | EKG ---
Test Date: 2023-02-18 Test Time: 19:49:22 Echocardiography Radiology Technologist: MEASUREMENT RESULTS: Intervals: Rate: 66 UT: 196 QRSD: 132 QT: 460 QTc: 482 [place]: P: 44 UT: 196 QRS: -10 T: 47 INTERPRETIVE STATEMENTS: Normal sinus rhythm Right bundle branch block Abnormal ECG Compared to ECG 08/05/2019 08:23:18 Right bundle-branch block now present Myocardial infarct finding no longer present T-wave abnormality no longer present Possible ischemia no longer present Electronically Signed On 02-19-23 12:34:35 CDT by Jessu Plascencia
--- NOTE | 2023-02-19 14:36 | P.PN ---
Subjective Date of Service: 02/19/23 Chief Complaint: Cholecystitis Patient reports intermittent right upper quadrant pain. No vomiting. No recorded fever. Physical Examination - Vital Signs Temperature: 97.9 F Blood Pressure: 137/64 Pulse: 62 Respirations: 16 Pulse Ox (%): 98 - Studies Laboratory Data (last 24 hrs) 02/18/23 20:37: Lipase Cancelled 02/18/23 20:00: WBC 17.80 H, Hgb 14.7, Hct 44.6, Plt Count 343 02/18/23 20:00: Sodium 131 L, Potassium 3.7, BUN 16, Creatinine 1.25, Glucose 157 H, Magnesium 2.0, Total Bilirubin 1.1 H, AST 17, ALT 19, Alkaline Phosphatase 155 H, Lipase 26 Assessment And Plan - Current Problems (Diagnosis) (1) Acute cholecystitis Current Visit: Yes Status: Acute (2) Hypertension Current Visit: Yes Status: Chronic Qualifiers: Hypertension type: primary hypertension Qualified Code(s): I10 - Essential (primary) hypertension (3) Sepsis Current Visit: Yes Status: Acute (4) Hyponatremia Current Visit: Yes Status: Acute - Plan Physical Exam General: Alert, In no apparent distress Respiratory: Clear to auscultation bilaterally, Normal air movement Cardiovascular: Regular rate/rhythm, Normal S1 S2 Gastrointestinal: Non-distended, No rebound, No guarding, RUQ tenderness. Musculoskeletal: No tenderness Integumentary: No rashes Neurological: No focal motor deficit. Plan: MRCP results reviewed and confirmed acute cholecystitis, no CBD dilatation or stones. Patient seen by surgery Dr. Blanco who is planning lap cholecystectomy. Lap cholecystectomy scheduled for tomorrow. Clear liquid diet, n.p.o. at midnight. Continue aggressive antibiotics given sepsis. IV fluid. Pain management as needed.
[2023-02-19] MEDS: D5NS KCL 20MEQ 20 MEQ/1,000 ML BAG IV SCH (16:19)
--- NOTE | 2023-02-19 17:53 | RAD REPORT ---
EXAM DESCRIPTION: US Abdomen Limited, Gallbladder CLINICAL HISTORY: The patient is 82 years old and is Male; acute cholecystitis , evaluate ducts TECHNIQUE: Real-time ultrasound of the right upper quadrant with image documentation. COMPARISON: No relevant prior studies available. FINDINGS: GALLBLADDER: The gallbladder is distended. Diffuse gallbladder wall thickening is presen t. Small gallstone is noted within the gallbladder. Small pericholecystic fluid is present. COMMON BILE DUCT: Unremarkable as visualized. No stones. No dilation. IMPRESSION: Cholelithiasis with findings concerning for acute cholecystitis. Electronically signed by: Crystal Kitchen MD 02/18/2023 11:54 PM CDT Due to temporary technical issues with the PACS/Fluency reporting system, reports are being signed by the in house radiologists without review as a courtesy to insure prompt reporting. The interpreting radiologist is fully responsible for the content of the report.
[2023-02-20] MEDS: PIPER TAZO 3.375 GM in NA CHLORIDE 0.9% 100 ML IV SCH ×3 (00:42→15:48)
[2023-02-20 04:07] LABS: Absolute Lymphocytes (CBC) 0.9 K/uL (0.7-4.9); Hematocrit 41.1 % (39.6-49.0); Lymphocytes % 3.6 % (15.3-44.8); MCV 88.7 fL (80-100); MPV 7.9 fL (7.6-11.3); RBC Red Blood Cell Count 4.63 M/uL (4.33-5.43)
[2023-02-20 04:19] LABS: Phosphorus 2.1 mg/dL (2.5-4.9); Potassium 4.5 mEq/L (3.5-5.1)
[2023-02-20] MEDS: D5NS KCL 20MEQ 20 MEQ/1,000 ML BAG IV SCH ×2 (04:25→15:57)
[2023-02-20] MEDS ORDERED: POTASSIUM PHOS IN 0.9 % NACL 15 MMOL/250 ML BAG IV ONE (05:04)
[2023-02-20] MEDS: ACETAMINOPHEN 325 MG TABLET PO PRN (07:50)
[2023-02-20] MEDS ORDERED: Ringers Lactate 1,000 ML IV ONE (11:11)
[2023-02-20] MEDS ORDERED: ONDANSETRON 4 MG/2 ML VIAL ONE (12:16)
[2023-02-20] MEDS ORDERED: ROCURONIUM 50 MG/5 ML VIAL IV ONE (12:16)
[2023-02-20] MEDS ORDERED: LIDOCAINE 2% MPF 5 ML VIAL ONE (12:16)
[2023-02-20] MEDS ORDERED: FENTANYL CITR 100 MCG/2 ML ONE (12:16)
[2023-02-20] MEDS ORDERED: propofoL 200 MG/20 ML VIAL IV ONE ×3 (12:16→13:31)
[2023-02-20] MEDS ORDERED: GLYCOPYRROLATE 0.2 MG/ML SYR ONE (13:58)
[2023-02-20] MEDS ORDERED: NEOSTIGMINE 1 MG/ML -10 ML VIAL ONE (14:11)
[2023-02-20] MEDS: MORPHINE 4 MG/ML SYR IV PRN ×2 (15:49→22:22)
--- NOTE | 2023-02-20 16:14 | P.PN ---
Subjective Date of Service: 02/20/23 Chief Complaint: Cholecystitis Patient has been experiencing intermittent fever WBC also trended up significantly. Blood culture shows no growth to date. Physical Examination - Vital Signs Temperature: 97.2 F Blood Pressure: 117/54 Pulse: 72 Respirations: 16 Pulse Ox (%): 97 Assessment And Plan - Current Problems (Diagnosis) (1) Acute cholecystitis Current Visit: Yes Status: Acute (2) Hypertension Current Visit: Yes Status: Chronic Qualifiers: Hypertension type: primary hypertension Qualified Code(s): I10 - Essential (primary) hypertension (3) Sepsis Current Visit: Yes Status: Acute (4) Hyponatremia Current Visit: Yes Status: Acute - Plan Physical Exam General: Alert, In no apparent distress Respiratory: Clear to auscultation bilaterally, Normal air movement Cardiovascular: Regular rate/rhythm, Normal S1 S2 Gastrointestinal: Non-distended, No rebound, No guarding, RUQ tenderness. Musculoskeletal: No tenderness Integumentary: No rashes Neurological: No focal motor deficit. Mild confusion. Plan: MRCP results reviewed and confirmed acute cholecystitis, no CBD dilatation or stones. Patient seen by surgery Dr. Blanco. Lap cholecystectomy performed. Patient noted to have gangrenous and purulent gallbladder Continue aggressive antibiotics given sepsis. Repeat blood cultures due to intermittent fever. Continue IV fluid. Pain management as needed. Activity as tolerated. Monitor CBC to follow leukocytosis.
[2023-02-21] MEDS: PIPER TAZO 3.375 GM in NA CHLORIDE 0.9% 100 ML IV SCH ×2 (00:35→08:13)
--- NOTE | 2023-02-21 00:55 | OP ---
Date of Procedure: 02/20/2023 Surgeon: Yasmani Blanco MD Preoperative Diagnoses: Acute cholecystitis, symptomatic cholelithiasis. Postoperative Diagnoses: Acute cholecystitis, symptomatic cholelithiasis, suppurative cholecystitis. Procedure: Laparoscopic cholecystectomy. Drains: JAYNE #10. Findings: Patient has severe inflammation with peritonitis, intraabdominal adhesions with firmly att ached omentum to the liver and anterior abdominal wall, this have to be removed with the help of Liga Sure. We also encountered very distended and edematous gallbladder. In order for us to proceed with surgery, this had to be decompressed and while we decompressed that area, pure pus coming from that region. Complications: None. Indication: This is the case of an 82-year-old patient who comes to us with acute abdominal pain, re ceived ultrasound, MRCP, started antibiotics and fluid resuscitation. The patient and the family ful ly explained the benefits, alternatives, and risks of laparoscopy, possible open cholecystectomy, whi ch include, but not limited to infection, bleeding, damage to adjacent structures, anesthesia complic ation, choledocholithiasis, bile leak, pancreatitis, [place], and even . They also understand the ri sks of intraabdominal abscess. They signed a consent. Description Of Procedure: The patient was brought to the operating room, placed in supine position. Anesthesia was done without complication. Abdominal area was prepped and draped in usual sterile fa shion. Marcaine 0.5% was injected for local anesthetic, followed by sharp incision of skin in the in fraumbilical region. Incision was carried down to fascia, which was opened under direct vision. Per itoneum was encountered, opened under direct vision. Vicryl #1 placed inside the fascia. Remington tro car was carefully introduced. Pneumoperitoneum was obtained. I placed 3 more trocars, 5 mm each one of them, 1 epigastric area and 2 in the right upper quadrant using same technique, which consisted o f local anesthetic, sharp incision of the skin, introduction of the trocars under direct vision. At that moment, we noted the patient has a lot of adhesions of the omentum against the liver, against th e gallbladder, against the anterior abdominal wall. We cannot proceed unless we do lysis of adhesion s in that area. So, half the case was spent doing lysis of adhesions. There were dense adhesions at tached to the friable liver. Once we have that, the gallbladder was too distended to be able to cont inue the surgery without decompressing it, so we put an Endo needle in the gallbladder and bile and p us comes from that bile, even the wall of the gallbladder starting to show some patches of early gang renous changes. At that moment, I proceeded then to remove the needle under direct visualization, pu t a grasper in the fundus of the gallbladder and removed the adhesions slowly with the help of LigaSu re once again until we find the infundibulum. The gallbladder was retracted in the inferolateral fas hion exposing the triangle of Calot and obtaining critical view. The cystic duct and cystic artery w ere clearly identified circumferentially and a connection between those and the gallbladder were moreno rly identified. I proceeded to ligate those by using at least 3 clips proximal, 1 clip distal, ligat ion in middle, same with cystic artery. No bile leak, no bleeding. The gallbladder was removed from liver using Bovie cauterizer and removed from abdominal cavity using an EndoCatch through the umbili katy incision. The umbilical incision had to be extended due to the size of the gallbladder. Once we had that, we obtained pneumoperitoneum again, we checked the area of the lysis of adhesions, made cosme re there was no bleeding. We irrigated the area with several liters of fluid, an aspirate, but due t o the inflammation in that region a peritonitis and all the inflammatory findings, I proceeded to eric ve a JAYNE drain in that region exiting through 1 of the trocar sites and secured that in place with 3-0 nylon. The area was inspected once again. No bile leak, no bleeding. Clips were intact. At that moment, I proceeded to remove the trocars under direct vision. Deflated the pneumoperitoneum. Close d the fascia with #1 Vicryl. Irrigated subcutaneous tissue, closed that with 3-0 chromic, and skin w ith jannette. Sponge count, instrument counts correct. The patient tolerated the procedure well. Patient was sent to recovery i n stable condition. BENITO/CANELO Voice ID: [id number] Report ID: [id number]
[2023-02-21] MEDS: D5NS KCL 20MEQ 20 MEQ/1,000 ML BAG IV SCH ×4 (02:56→21:59)
[2023-02-21 04:23] LABS: Phosphorus 2.7 mg/dL (2.5-4.9); Potassium 4.3 mEq/L (3.5-5.1)
--- NOTE | 2023-02-21 09:02 | PN ---
Date of Progress Note: 02/21/2023 Diagnosis: Suppurative cholecystitis, symptomatic cholelithiasis. Subjective: The patient is doing better. He has a good attitude. He is awake and alert. Afebrile. No nausea. No vomiting. Physical Examination: Chest: Clear. Abdomen: Soft and depressible. JAYNE drain, serosanguineous. Extremities: Good capillary refill. No calf tenderness. Blood Work: Reviewed with WBC count increased to 24. Plan: We might have to add a second antibiotic until we have a final culture of this patient. We ar e going to discuss that with Dr. Flor to make sure we work together on that. We encourage incentiv e spirometry, ambulation. HM/MODL Voice ID: [id number] Report ID: [id number]
[2023-02-21 11:08] LABS: Hematocrit 34.3 % (39.6-49.0); Lymphocytes % 8.4 % (15.3-44.8); MCV 90.6 fL (80-100); MPV 7.6 fL (7.6-11.3); RBC Red Blood Cell Count 3.78 M/uL (4.33-5.43)
[2023-02-21] MEDS: Meropenem 1,000 MG in NA CHLORIDE 0.9% 100 ML IV SCH ×2 (13:06→22:06)
[2023-02-21] MEDS: ACETAMINOPHEN 325 MG TABLET PO PRN (13:10)
--- NOTE | 2023-02-21 14:46 | P.PN ---
Subjective Date of Service: 02/21/23 Chief Complaint: Cholecystitis Patient had no fever Leukocytosis almost resolved. Blood culture shows no growth to date. He has been tolerating full liquid diet. Physical Examination - Vital Signs Temperature: 98.6 F Blood Pressure: 122/59 Pulse: 82 Respirations: 18 Pulse Ox (%): 90 Assessment And Plan - Current Problems (Diagnosis) (1) Acute cholecystitis Current Visit: Yes Status: Acute (2) Hypertension Current Visit: Yes Status: Chronic Qualifiers: Hypertension type: primary hypertension Qualified Code(s): I10 - Essential (primary) hypertension (3) Sepsis Current Visit: Yes Status: Acute (4) Hyponatremia Current Visit: Yes Status: Acute - Plan Physical Exam General: Alert, In no apparent distress Respiratory: Clear to auscultation bilaterally, Normal air movement Cardiovascular: Regular rate/rhythm, Normal S1 S2 Gastrointestinal: Non-distended, No rebound, No guarding, JAYNE drain in place draining serosanguineous fluid. Musculoskeletal: No tenderness Integumentary: No rashes Neurological: No focal motor deficit. Mild confusion. Plan: MRCP results reviewed and confirmed acute cholecystitis, no CBD dilatation or stones. Patient seen by surgery Dr. Blanco. Lap cholecystectomy performed. Patient noted to have gangrenous and purulent gallbladder. Leukocytosis significantly improved Continue aggressive antibiotics given sepsis. IV Zosyn changed to IV meropenem. Follow blood cultures. Continue IV fluid. Reduce rate. Pain management as needed. Activity as tolerated. PT is working with the patient. He has been able to ambulate with a walker. Monitor and optimize electrolytes.
[2023-02-21] MEDS ORDERED: SIMETHICONE 125 MG TAB PO PRN (22:44)
[2023-02-21] MEDS ORDERED: SODIUM CHLORIDE 0.9% 10ML INJ IV PRN ×2 (22:44→22:50)
[2023-02-21] MEDS: PANTOPRAZOLE 40 MG INJ IVP SCH (23:26)
[2023-02-22 05:49] LABS: Magnesium 2.1 mg/dL (1.6-2.4); Phosphorus 1.9 mg/dL (2.5-4.9); Potassium 4.2 mEq/L (3.5-5.1)
[2023-02-22] MEDS: POTASS/SODIUM PHOSPHATE 1 PKT POWD.PACK PO SCH ×3 (07:47→10:14)
[2023-02-22] MEDS: HYDRALAZINE HCL 20 MG/ML VIAL IV PRN (07:47)
[2023-02-22] MEDS: PANTOPRAZOLE 40 MG INJ IVP SCH ×2 (07:48→20:18)
[2023-02-22] MEDS: D5NS KCL 20MEQ 20 MEQ/1,000 ML BAG IV SCH (07:48)
[2023-02-22] MEDS: Meropenem 1,000 MG in NA CHLORIDE 0.9% 100 ML IV SCH ×2 (10:14→22:18)
[2023-02-22] MEDS: ACETAMINOPHEN 325 MG TABLET PO PRN (10:22)
--- NOTE | 2023-02-22 13:54 | P.PN ---
Subjective Date of Service: 02/22/23 Chief Complaint: Cholecystitis Patient have had no fever Daughter states patient oral intake has decreased. He has been tolerating full liquid diet. Physical Examination - Vital Signs Temperature: 98.4 F Blood Pressure: 125/62 Pulse: 62 Respirations: 18 Pulse Ox (%): 93 Assessment And Plan - Current Problems (Diagnosis) (1) Acute cholecystitis Current Visit: Yes Status: Acute (2) Hypertension Current Visit: Yes Status: Chronic Qualifiers: Hypertension type: primary hypertension Qualified Code(s): I10 - Essential (primary) hypertension (3) Sepsis Current Visit: Yes Status: Acute (4) Hyponatremia Current Visit: Yes Status: Acute - Plan Physical Exam General: Alert, In no apparent distress Respiratory: Clear to auscultation bilaterally, Normal air movement Cardiovascular: Regular rate/rhythm, Normal S1 S2 Gastrointestinal: Non-distended, No rebound, No guarding, JAYNE drain in place draining serosanguineous fluid. Musculoskeletal: No tenderness Integumentary: No rashes Neurological: No focal motor deficit. Plan: MRCP results reviewed and confirmed acute cholecystitis, no CBD dilatation or stones. Patient seen by surgery Dr. Blanco. Lap cholecystectomy performed. Patient noted to have gangrenous and purulent gallbladder. Leukocytosis significantly improved Continue aggressive antibiotics given sepsis. Continue IV meropenem. Blood cultures: No growth. Patient placed on oxygen given complaint of pain with breathing. Discontinue IV fluid. Increase oral intake as possible. Obtain chest x-ray Incentive spirometry. Pain management as needed. Activity as tolerated. PT is working with the patient. He has been able to ambulate with a walker. Monitor and optimize electrolytes. Physician Review: Patient Assessed, Agree with Above Assessment and Plan
[2023-02-22] MEDS ORDERED: HYDROCODONE/APAP 5/325 MG TAB PO PRN (13:55)
--- NOTE | 2023-02-22 14:21 | PN ---
Date of Progress Note: 02/22/2023 Diagnoses: Suppurative cholecystitis, acute cholecystitis, symptomatic cholelithiasis. Subjective: The patient is doing better. He could not get out of work, but we explained to him tozackery y the importance incentive spirometer to diminish the chance of pneumonia. Objective: Chest: Clear. No wheezes. Abdomen: Soft and depressible. JAYNE drain has been drained serosanguineous. Extremities: Good capillary refill. Laboratory Data: Blood work, WBC count is improving. Plan: From the surgical standpoint, we are going to advance diet, but it is important he lives into the rehab and ambulate. He has not ambulated chair which is important for us to help us a nd diminish the chance of DVTs and also pneumonia. He has been compliant. He is going to try to do some effort today, but I want to make sure that it is run by the primary doctor. Continue the antibi otics. BENITO/CANELO Voice ID: [id number] Report ID: [id number]
--- NOTE | 2023-02-22 15:27 | RAD REPORT ---
EXAM DESCRIPTION: Jus Single View02/22/2023 2:59 pm CLINICAL HISTORY: Chest pain COMPARISON: February 20, 2023 FINDINGS: Mild to moderate bilateral interstitial lung opacities are unchanged. Heart is normal size IMPRESSION: Unchanged [id number] bilateral social lung opacities probably pulmonary fibrosis
[2023-02-22] MEDS ORDERED: PANTOPRAZOLE 40 MG INJ IVP SCH (22:45)
[2023-02-23] MEDS: ACETAMINOPHEN 325 MG TABLET PO PRN (00:31)
[2023-02-23 06:50] LABS: Phosphorus 2.1 mg/dL (2.5-4.9); Potassium 3.6 mEq/L (3.5-5.1)
[2023-02-23] MEDS: PANTOPRAZOLE 40 MG INJ IVP SCH (08:08)
[2023-02-23] MEDS: POTASS/SODIUM PHOSPHATE 1 PKT POWD.PACK PO SCH ×3 (08:08→10:57)
[2023-02-23] MEDS ORDERED: POTASSIUM CL SA 10 MEQ TAB PO ONE ×2 (09:00)
[2023-02-23 09:47] LABS: Absolute Lymphocytes (CBC) 1.1 K/uL (0.7-4.9); Hematocrit 38.5 % (39.6-49.0); Lymphocytes % 11.2 % (15.3-44.8); MPV 7.7 fL (7.6-11.3); RBC Red Blood Cell Count 4.28 M/uL (4.33-5.43)
[2023-02-23 10:03] LABS: Potassium 4.4 mEq/L (3.5-5.1)
[2023-02-23 10:25] VITALS: O2SAT 99
[2023-02-23 10:37] VITALS: BP 141/74; TEMP 97.5
[2023-02-23] MEDS: Meropenem 1,000 MG in NA CHLORIDE 0.9% 100 ML IV SCH (11:08)
--- NOTE | 2023-02-23 13:14 | P.DS ---
Admission Date: 02/18/23 Discharge Date: 02/23/23 Disposition: ROUTINE DISCHARGE Discharge Condition: FAIR Reason for Admission: Cholecystitis - Problems (1) Acute cholecystitis Current Visit: Yes Status: Acute (2) Hypertension Current Visit: Yes Status: Chronic Qualifiers: Hypertension type: primary hypertension Qualified Code(s): I10 - Essential (primary) hypertension (3) Sepsis Current Visit: Yes Status: Acute (4) Hyponatremia Current Visit: Yes Status: Acute Brief History of Present Illness: Mr. Rios is an 82 year old male with past medical history of hypertension who presented to the emergency department with complaints of nausea, vomiting, and abdominal pain. He was not able to hold anything down. His labs were significant for WBC 17 with left shift and bandemia, sodium 131, chloride 97, tbili 1.1, alk phos 155, BNP 3500. CT chest abdomen pelvis showed "cholelithiasis with distended and edematous gallbladder suggestive of acute cholecystitis. General surgery, Dr. Blanco, was contacted, evaluated patient at bedside and recommended MRCP. Patient was started on zosyn and admitted for further management. Hospital Course: Patient admitted to the medical floor and treated with aggressive antibiotics. MRCP confirmed acute cholecystitis, no CBD dilatation or stones. Patient seen by surgery Dr. Blanco. Lap cholecystectomy performed. Patient noted to have gangrenous and purulent gallbladder. He developed significant leukocytosis which eventually improved and resolved with IV antibiotics. Antibiotics patient received include Zosyn which was later changed to IV meropenem. Blood cultures: No growth. Patient placed on oxygen given complaint of pain with breathing. He was later weaned off oxygen and currently saturating well on room air. Chest x-ray demonstrated possible pulmonary fibrosis. Patient tolerated diet, IV fluid discontinued. He was seen and evaluated by PT. Patient's functional status improved with therapy. He is now able to ambulate with minimal assistance. Patient seen sitting in a chair today. He has no complaint. He has been seen and evaluated by Dr. Blanco. Patient is deemed stable for discharge. He is prescribed oral Cipro and Flagyl to continue treatment for purulent/gangrenous gallbladder. Vital Signs/Physical Exam: Temp Pulse Resp BP Pulse Ox 97.5 F 73 16 141/74 H 99 02/23/23 08:00 02/23/23 08:00 02/23/23 08:00 02/23/23 08:00 02/23/23 08:00 General: Alert, In no apparent distress, Oriented x3 HEENT: Mucous membr. moist/pink Neck: Supple, JVD not distended Respiratory: Clear to auscultation bilaterally, Normal air movement Cardiovascular: Regular rate/rhythm, Normal S1 S2 Gastrointestinal: Normal bowel sounds, Soft and benign, Non-distended Musculoskeletal: No swelling Integumentary: No rashes, No cyanosis Neurological: Normal strength at 5/5 x4 extr Laboratory Data at Discharge: WBC 9.30 thou/uL (4.3-10.9) 02/23/23 09:25 Hgb 12.9 g/dL (13.6-17.9) L 02/23/23 09:25 Hct 38.5 % (39.6-49.0) L 02/23/23 09:25 Plt Count 311 thou/uL (152-406) 02/23/23 09:25 Sodium 136 mEq/L (136-145) 02/23/23 09:25 Potassium 4.4 mEq/L (3.5-5.1) D 02/23/23 09:25 BUN 16 mg/dL (7-18) 02/23/23 09:25 Creatinine 1.03 mg/dL (0.70-1.30) 02/23/23 09:25 Glucose 150 mg/dL (74-106) H 02/23/23 09:25 Phosphorus 2.1 mg/dL (2.5-4.9) L 02/23/23 06:16 Magnesium 2.0 mg/dL (1.6-2.4) 02/23/23 06:16 Total Bilirubin 1.0 mg/dL (0.2-1.0) 02/19/23 03:05 AST 12 U/L (15-37) L 02/19/23 03:05 ALT 16 U/L (16-61) 02/19/23 03:05 Alkaline Phosphatase 142 U/L (45-117) H 02/19/23 03:05 Triglycerides 75 mg/dL (<150) 02/19/23 03:05 Cholesterol 112 mg/dL (<200) 02/19/23 03:05 HDL Cholesterol 44 mg/dL (40-60) 02/19/23 03:05 Cholesterol/HDL Ratio 2.55 02/19/23 03:05 Lipase Cancelled 02/18/23 20:37 Home Medications: Atorvastatin Calcium [Lipitor] 40 mg PO BEDTIME #30 tab 08/06/19 Ciprofloxacin HCl [Cipro] 500 mg PO BID #10 tab 02/23/23 Hydrocodone 5/APAP 325 [[place] 5/325*] 1 tab PO Q6H PRN #12 tab 02/23/23 metroNIDAZOLE [Flagyl] 500 mg PO Q8H #15 tab 02/23/23 New Medications: Ciprofloxacin HCl [Cipro] 500 mg PO BID #10 tab metroNIDAZOLE [Flagyl] 500 mg PO Q8H #15 tab Hydrocodone 5/APAP 325 [[place] 5/325*] 1 tab PO Q6H PRN #12 tab PRN Reason: Pain Scale 5-7 (Moderate) Diet: AHA Activity: Fall precautions Followup: NONE,NONE [Primary Care Provider] - Yasmani Blanco MD [ACTIVE - CAN ADMIT] - 1 Week (Follow up in the office on 02/27/23 for drain removal.) Time spent managing pt's care (in minutes): 38
[2023-02-23] MEDS ORDERED: Meropenem 1,000 MG in NA CHLORIDE 0.9% 100 ML IV SCH (17:00)
== END 2023-02-23 13:44 | disposition home or self-care (01) | DRG 854 ==
LOC: ER 19:13 → ERHOLD 23:04 → 4TH 23:26
PROVIDERS: ADMIT Internal Medicine; ATTEND Internal Medicine
PROC: 0FT44ZZ Resection of Gallbladder, Percutaneous Endoscopic Approach (ICD-10-PCS; principal; 2023-02-20 12:00)
DX: A41.9 Sepsis, unspecified organism (principal); E87.1 Hypo-osmolality and hyponatremia; K80.00 Calculus of gallbladder with acute cholecystitis without obstruction; K82.A1 Gangrene of gallbladder in cholecystitis; I10 Essential (primary) hypertension; I45.10 Unspecified right bundle-branch block; Z90.49 Acquired absence of other specified parts of digestive tract; Z79.82 Long term (current) use of aspirin; Z79.899 Other long term (current) drug therapy; Z28.310 Unvaccinated for COVID-19
CPT/HCPCS: 36415; 71045; 71260; 74177; 74181; 76705; 80048; 80053; 80061; 80076; 83605; 83690; 83735; 83880; 84100; 84484; 85025; 87040; 87070; 87075; 87077; 87186; 87205; 88304; 93005; 94010; 96365; 96375; 97110; 97116; 97163; 97530; 99285; C9113; J0360; J2001; J2185; J2405; J2543; J2704; J2710; J3010; J3480; J7120; Q9967

== ENCOUNTER 2023-03-26 11:54 | Emergency (ER) | payer OTHER ==
[2023-03-26] MEDS ORDERED: LIDOCAINE 1% 20 ML MDV ONE (12:15)
--- NOTE | 2023-03-26 12:20 | RAD REPORT ---
EXAM DESCRIPTION: CT - Head Brain Wo Cont - 03/26/2023 12:12 pm CLINICAL HISTORY: Head injury status post fall COMPARISON: 2009 TECHNIQUE: Computed axial tomography of the head was obtained. IV contrast was not requested. All CT scans are performed using dose optimization technique as appropriate and may include automated exposure control or mA/KV adjustment according to patient size. FINDINGS: An intracranial bleed is not seen The ventricles are normal in caliber No extra-axial fluid collection is noted. Mild cerebral atrophy Mild to moderate low-density areas within periventricular, deep and subcortical white matter likely r epresent ischemic changes secondary to small vessel disease. Fluid within the sinuses/ mastoids is not seen. IMPRESSION: No acute intracranial abnormality is seen If patient's symptoms persist MRI of the brain would be recommended
--- NOTE | 2023-03-26 13:00 | ER ---
Nurse's Notes [facility] Name: Preet Rios Age: 82 yrs Sex: Male : 1940 Arrival Date: 03/26/2023 Time: 11:54 Bed 14 Private MD: Diagnosis: Laceration without foreign body of left ear;Unspecified injury of head, initial encounter Presentation: 03/26 12:08 Chief complaint: Patient states: left ear laceration. Coronavirus screen: Vaccine me1 status: Patient reports receiving the 2nd dose of the covid vaccine. At this time, the client does not indicate any symptoms associated with coronavirus-19. Ebola Screen: No symptoms or risks identified at this time. Initial Sepsis Screen: Does the patient meet any 2 criteria? No. Patient's initial sepsis screen is negative. Does the patient have a suspected source of infection? No. Patient's initial sepsis screen is negative. Risk Assessment: Do you want to hurt yourself or someone else? Patient reports no desire to harm self or others. Onset of symptoms was March 26, 2023. 12:08 Method Of Arrival: Ambulatory pa1 12:08 Acuity: YULI 4 me1 Triage Assessment: 12:08 General: Appears comfortable, well groomed, well developed, well nourished, Behavior is me1 calm, cooperative, appropriate for age. Pain: Denies pain. Neuro: Level of Consciousness is awake, alert, obeys commands, Oriented to person, place, time, situation, Appropriate for age. Cardiovascular: Capillary refill < 3 seconds Patient's skin is warm and dry. Respiratory: Respiratory effort is even, unlabored, Respiratory pattern is regular, symmetrical. Derm: Reports fell out of bed and hit his left ear on the bed rail. Laceration to left ear. Historical: - Allergies: 12:08 No Known Allergies; me1 - Home Meds: 12:08 None [Active]; me1 - PMHx: 12:08 Hypertension; resolved after wt loss; me1 - PSHx: 12:08 arm; me1 - Immunization history:: Adult Immunizations up to date. - Social history:: Smoking status: Patient/guardian denies using tobacco, but has a distant history of tobacco abuse. Screenin:51 [facility] ED Fall Risk Assessment (Adult) History of falling in the last 3 months, nj1 including since admission Score/Fall Risk Level 0 - 2 = Low Risk Oriented to surroundings, Maintained a safe environment, Hourly rounding (assess needs \T\ fall precautionary measures) done. Abuse screen: Denies threats or abuse. Denies injuries from another. Nutritional screening: On. Tuberculosis screening: No symptoms or risk factors identified. Assessment: 12:20 Reassessment: See triage assessment. [facility] 12:59 Reassessment: Patient appears in no apparent distress at this time. Patient and/or nj1 family updated on plan of care and expected duration. Pain level reassessed. Patient is alert, oriented x 3, equal unlabored respirations, skin warm/dry/pink. 13:45 Reassessment: Patient appears in no apparent distress at this time. Patient and/or nj1 family updated on plan of care and expected duration. Pain level reassessed. Patient is alert, oriented x 3, equal unlabored respirations, skin warm/dry/pink. Patient denies pain at this time. Patient states feeling better. Vital Signs: 12:08 BP 126 / 65; Pulse 66; Resp 17; Temp 98.6; Pulse Ox 100% ; Weight 88.45 kg; Height 5 me1 ft. 8 in. ; 12:59 BP 149 / 69; Pulse 60; Resp 18; Pulse Ox 100% ; nj1 13:45 BP 129 / 71; Pulse 71; Resp 17; Pulse Ox 100% on R/A; Pain 0/10; nj1 12:08 Body Mass Index 29.65 (88.45 kg, 172.72 cm) [facility] [place] Pain Scale: Adult [facility] ED Course: 11:59 Patient arrived in ED. mr 11:59 Ophelia Real [facility]C [facility]. kb 11:59 Vlad Gregory MD is Attending Physician. kb 12:08 Triage completed. pa1 12:08 Arm band placed on Patient placed in waiting room. pa1 12:10 Mag Pascual, JACOBO is Primary Nurse. nh1 12:13 CT Head Brain wo Cont In Process Unspecified. EDMS 12:15 Patient has correct armband on for positive identification. Bed in low position. Call [facility] light in reach. Adult w/ patient. 12:20 Provided Education on: fall precautions, call light. [facility] 13:00 Cecy Simon MD is Referral Physician. kb 13:00 Maggi Jain MD is Referral Physician. kb 13:45 Assist provider with laceration repair Set up tray. nj1 13:45 Patient did not have IV access during this emergency room visit. nj1 Administered Medications: 12:48 Drug: Lidocaine Infiltration (1 %) 1 vials {Note: Vial given to Fatou Real MANAGER CHILD for nj1 administration.} Volume: 5 ml; Route: Infiltration; Medication: 13:52 VIS not applicable for this client. nj1 Outcome: 12:59 Discharge ordered by . kb 13:45 Discharged to home ambulatory, with family. nj1 13:45 Condition: stable 13:45 Discharge instructions given to patient, family, Instructed on discharge instructions, follow up and referral plans. medication usage, wound care, Demonstrated understanding of instructions, follow-up care, medications, wound care, Prescriptions given X 1. 13:53 Patient left the ED. nj1 Signatures: Dispatcher [employer] EDWV Ophelia Real, ADRIANA ARCINIEGA-Nikia Freedman mr Mag Pascual, RN RN nj1 Arlyn Whitmore RN RN pa1
--- NOTE | 2023-03-26 13:00 | EDPHYS ---
Physician Documentation [facility] Name: Preet Rios Age: 82 yrs Sex: Male : 1940 Arrival Date: 03/26/2023 Time: 11:54 Bed 14 Private MD: ED Physician Vlad Gregory HPI: 03/26 12:36 This 82 yrs old Male presents to ER via Ambulatory with complaints of Ear laceration. kb 12:36 The patient presents with a laceration. The complaints affect the pinna of left ear. kb Onset: The symptoms/episode began/occurred this morning. Modifying factors: The symptoms are alleviated by nothing, the symptoms are aggravated by nothing. Associated signs and symptoms: The patient has no apparent associated signs or symptoms. Severity of symptoms: At their worst the symptoms were moderate in the emergency department the symptoms are unchanged. The patient has not experienced similar symptoms in the past. The patient has not recently seen a physician. Historical: - Allergies: 12:08 No Known Allergies; me1 - Home Meds: 12:08 None [Active]; me1 - PMHx: 12:08 Hypertension; resolved after wt loss; me1 - PSHx: 12:08 arm; me1 - Immunization history:: Adult Immunizations up to date. - Social history:: Smoking status: Patient/guardian denies using tobacco, but has a distant history of tobacco abuse. ROS: 12:33 Constitutional: Negative for fever, chills, and weight loss. kb 12:33 Skin: Positive for laceration(s), of the left temporal area and pinna of left ear. 12:33 All other systems are negative. Exam: 12:33 Constitutional: This is a well developed, well nourished patient who is awake, alert, kb and in no acute distress. Head/Face: Normocephalic, atraumatic. Cardiovascular: Regular rate and rhythm with a normal S1 and S2. No gallops, murmurs, or rubs. No pulse deficits. Respiratory: Respirations even and unlabored. No increased work of breathing. Talking in full sentences Abdomen/GI: Soft, non-tender. No distention MS/ Extremity: Pulses equal, no cyanosis. Neurovascular intact. Full, normal range of motion. Neuro: Awake and alert, GCS 15, oriented to person, place, time, and situation. Moves all extremities. Normal gait. 12:33 ENT: External ear(s): laceration, that is superficial, approximately 2 cm(s), to the pinna of left ear. 12:33 Skin: injury, abrasion(s), small abrasion noted, of the left temporal area. Vital Signs: 12:08 BP 126 / 65; Pulse 66; Resp 17; Temp 98.6; Pulse Ox 100% ; Weight 88.45 kg; Height 5 me1 ft. 8 in. ; 12:59 BP 149 / 69; Pulse 60; Resp 18; Pulse Ox 100% ; nj1 13:45 BP 129 / 71; Pulse 71; Resp 17; Pulse Ox 100% on R/A; Pain 0/10; nj1 12:08 Body Mass Index 29.65 (88.45 kg, 172.72 cm) me1 13:45 Pain Scale: Adult nj1 Laceration: 12:58 Wound Repair of 2cm ( 0.8in ) subcutaneous laceration to pinna of left ear. Irregularly kb shaped.. Distal neuro/vascular/tendon intact. Anesthesia: Wound infiltrated with 1 mls of 1% lidocaine. Wound prep: Extensive cleansing with betadine by me, Wound irrigation with saline by me. Skin closed with 6 5-0 Vicryl using simple sutures and sterile technique. Patient tolerated well. MDM: 12:00 Patient medically screened. kb 12:35 Differential diagnosis: abrasion, laceration, closed head injury. Data reviewed: vital kb signs, nurses notes. Counseling: I had a detailed discussion with the patient and/or guardian regarding: the historical points, exam findings, and any diagnostic results supporting the discharge/admit diagnosis, radiology results, the need for outpatient follow up, a family practitioner, to return to the emergency department if symptoms worsen or persist or if there are any questions or concerns that arise at home. 03/26 12:03 Order name: CT Head Brain wo Cont; Complete Time: 12:22 kb 03/26 12:04 Order name: Gloves, Sterile; Complete Time: 12:48 kb 03/26 12:04 Order name: Prolene, Sutures; Complete Time: 12:48 kb 03/26 12:04 Order name: Setup Suture Tray; Complete Time: 12:48 kb Administered Medications: 12:48 Drug: Lidocaine Infiltration (1 %) 1 vials {Note: Vial given to Fatou Real NETWORK STRATEGIST for nj1 administration.} Volume: 5 ml; Route: Infiltration; Disposition: 14:38 Co-signature as Attending Physician, Vlad Gregory MD I reviewed the patient's care rn provided by the Advanced Practice Provider and agree with the diagnosis and treatment plan. Disposition Summary: 03/26/23 12:59 Discharge Ordered Location: Home kb Condition: Stable kb Diagnosis - Laceration without foreign body of left ear kb - Unspecified injury of head, initial encounter kb Followup: kb - With: Emergency Department - When: As needed - Reason: Worsening of condition Followup: kb - With: Private Physician - When: 2 - 3 days - Reason: Recheck today's complaints, Continuance of care, Re-evaluation by your physician Followup: kb - With: Cecy Simon MD - When: 2 - 3 days - Reason: Recheck today's complaints Followup: kb - With: Maggi Jain MD - When: 2 - 3 days - Reason: Recheck today's complaints Discharge Instructions: - Discharge Summary Sheet kb - Laceration Care, Adult, [id number] kb - Facial Laceration, [id number] kb - Head Injury, Adult, [id number] kb Forms: - Medication Reconciliation Form kb - Thank You Letter kb - Antibiotic Education kb - Prescription Opioid Use kb - Patient Portal Instructions kb Prescriptions: - Cephalexin 500 mg Oral Capsule - take 1 capsule by ORAL route every 8 hours for 10 days; 30 capsule; Refills: 0, kb Product Selection Permitted Signatures: Dispatcher [employer] Ophelia David, FIRE RANGER-C FIRE RANGER-Ckb Vlad Gregory MD MD rn Jaco, Norma, RN RN nj1 Arlyn Whitmore, JACOBO RN me1 Corrections: (The following items were deleted from the chart) 13:50 12:04 Dressing - Wound ordered. kb nj1
[2023-03-26 14:07] VITALS: TEMP 98.6; O2SAT 100
[2023-03-26 14:11] VITALS: BP 129/71
== END 2023-03-26 13:53 | disposition home or self-care (01) ==
LOC: ER 11:54
PROC: 0HQ3XZZ Repair Left Ear Skin, External Approach (ICD-10-PCS; principal; 2023-03-26)
DX: S01.312A Laceration without foreign body of left ear, initial encounter (principal); S09.90XA Unspecified injury of head, initial encounter
CPT/HCPCS: 70450; 99284; 12011; J2001

== ENCOUNTER 2023-11-14 14:34 | Observation (INO) | payer OTHER ==
--- NOTE | 2023-11-14 15:32 | RAD REPORT ---
EXAM DESCRIPTION: CT - CTFB CLINICAL HISTORY: TRAUMA COMPARISON: No comparisons TECHNIQUE: Axial 2 mm thick images of the face were obtained with sagittal and coronal reconstructio n images. All CT scans are performed using dose optimization technique as appropriate and may include automated exposure control or mA/KV adjustment according to patient size. FINDINGS: No acute facial bone fracture is seen.The mandible is intact. The globes and orbital contents are grossly unremarkable.The paranasal sinuses and mastoids are clear . Left forehead hematoma. IMPRESSION: Negative for facial bone fracture.
--- NOTE | 2023-11-14 15:32 | RAD REPORT ---
EXAM DESCRIPTION: CT - Head C Spine Cap Wo Con - 11/14/2023 2:56 pm CLINICAL HISTORY: Trauma, head and neck injury. Chest, abdomen and pelvis pain. TRAUMA COMPARISON: Facial Bones W/ Mpr dated 11/14/2023 TECHNIQUE: CT head without contrast. CT cervical spine without contrast with coronal and sagittal reformatted images. CT chest, abdomen and pelvis without contrast with coronal and sagittal reformatted images of the spi ne. All CT scans are performed using dose optimization technique as appropriate and may include automated exposure control or mA/KV adjustment according to patient size. FINDINGS: CT HEAD WITHOUT CONTRAST: No intracranial hemorrhage, hydrocephalus or extra-axial fluid collection. No areas of brain edema o r midline shift. Moderate chronic small vessel ischemic changes. Left forehead hematoma. Cerebral atr ophy. The paranasal sinuses and mastoids are clear. The calvarium is intact. CT CERVICAL SPINE WITHOUT CONTRAST: No fracture or subluxation. The prevertebral soft tissues are normal in thickness.Multilevel cervica l spondylosis with varying degrees of neural foraminal narrowing. Carotid artery calcifications. Plea se moderate central spinal stenosis is present at C5-6. CT CHEST, ABDOMEN, PELVIS WITHOUT CONTRAST: NOTE: Lack of contrast is a significant limitation in the assessment of trauma related findings. Spec ifically, solid organ, vascular and bowel evaluation is significantly limited. Chronic interstitial lung changes. No acute process identified.No pneumothorax or pericardial/pleural fluid. Coronary artery disease. Aortic valve calcifications. Mitral annular calcifications . No evidence of intra-abdominal visceral injury, free fluid or free air is seen within the above detai led limitations. Large right renal cyst. Atherosclerosis . Left renal cyst. Cholecystectomy No concerning pelvic findings. No fractures. Multilevel degenerative changes are present in the spine. IMPRESSION: Negative for acute traumatic findings within the above detailed limitations.
[2023-11-14 16:16] LABS: Absolute Eosinophils 0.1 K/uL (0-0.5); Absolute Lymphocytes (CBC) 1.2 K/uL (0.7-4.9); Absolute Monocytes 0.6 K/uL (0.1-1.3); Absolute Neutrophil 10.2 K/uL (1.8-8.0); Basophils % 0.4 % (0-1.3); Hematocrit 42.7 % (39.6-49.0); Hemoglobin 14.5 g/dL (13.6-17.9); MCH 29.9 pg (27.0-35.0); MCHC 33.9 g/dL (32.0-36.0); MCV 88.3 fL (80-100); MPV 7.6 fL (7.6-11.3); Monocytes % 4.8 % (3.3-12.3); Neutrophils % 83.8 % (41.7-73.7); Platelets 275 thou/uL (152-406); RBC Red Blood Cell Count 4.84 M/uL (4.33-5.43); Red Cell Distribution Width 14.3 % (12.1-15.2)
[2023-11-14 16:27] LABS: Anion Gap 9.7 mEq/L (5.0-15.0); Potassium 3.7 mEq/L (3.5-5.1)
[2023-11-14] MEDS ORDERED: LIDOCAINE 1% 20 ML MDV ONE (16:36)
[2023-11-14] MEDS ORDERED: HYDRALAZINE HCL 20 MG/ML VIAL ONE (16:38)
--- NOTE | 2023-11-14 17:38 | RAD REPORT ---
EXAM DESCRIPTION: RAD - Tib Fib Right - 11/14/2023 5:28 pm CLINICAL HISTORY: Pain;Swelling COMPARISON: No comparisons FINDINGS/IMPRESSION: No acute fracture. No malalignment. No significant focal degenerative changes. Peripheral vascular calcifications.
[2023-11-14] MEDS ORDERED: NA CHLORIDE 0.9% 1,000 ML ONE (18:02)
[2023-11-14 18:39] LABS: Sqamous Epithelial None Seen /HPF (None Seen); Urine Bacteria None Seen /HPF (<20); Urine Bilirubin NEGATIVE (Negative); Urine Blood Trace (Negative); Urine Clarity Clear (Clear); Urine Color Colorless (Yellow); Urine Culture Reflex Order NOT NEEDED; Urine Glucose NEGATIVE (Negative); Urine Ketones 1+ (Negative); Urine Microscopic Reflex YN ORDER UMIC; Urine Mucus Slight /HPF (None Seen); Urine Nitrite NEGATIVE (Negative); Urine Protein TRACE (Negative); Urine RBC <5 /HPF (None Seen); Urine Urobilinogen Normal (Normal); Urine WBC <5 /HPF (<5)
[2023-11-14 18:47] LABS: Barbiturates NEGATIVE (NEGATIVE); Benzodiazepines NEGATIVE (NEGATIVE); Cocaine NEGATIVE (NEGATIVE); METHAMPHETAM NEGATIVE (NEGATIVE); Methadone NEGATIVE (NEGATIVE); Opiates NEGATIVE (NEGATIVE); Phencyclidine NEGATIVE (NEGATIVE); THC Cannibis NEGATIVE (NEGATIVE)
--- NOTE | 2023-11-14 19:03 | ER ---
Nurse's Notes [facility] Name: Preet Rios Age: 83 yrs Sex: Male : 1940 Arrival Date: 11/14/2023 Time: 14:34 Bed 16 Private MD: Diagnosis: Altered mental status, unspecified Presentation: 11/13 14:36 Chief complaint: EMS states: Mechanical fall down a flight of stairs, unknown LOC, ph normally A\T\O x 4, oriented to person and place only, unknown if pt takes blood thinners. Coronavirus screen: Vaccine status: Patient reports receiving the 2nd dose of the covid vaccine. Ebola Screen: No symptoms or risks identified at this time. Initial Sepsis Screen: Does the patient meet any 2 criteria? No. Patient's initial sepsis screen is negative. Does the patient have a suspected source of infection? No. Patient's initial sepsis screen is negative. Risk Assessment: Do you want to hurt yourself or someone else? Patient reports no desire to harm self or others. Onset of symptoms was November 14, 2023. 14:36 Method Of Arrival: EMS: [facility] 14:36 Acuity: YULI 2 ph 14:47 Care prior to arrival: Cervical collar in place. Placed on backboard. Mechanism of ph Injury: Fall flight of stairs, approx 10 feet. Trauma event details: Injury occurred in the [facility], Injury occurred: at home. Injury occurred: November 14, 2023. Triage Assessment: 14:41 General: Appears in no apparent distress. comfortable, Behavior is calm, cooperative. ph Neuro: Level of Consciousness is awake, alert, obeys commands, Oriented to person, place. Trauma Activation: Alert Physician: ED Physician; Name: ; Notified At: ; Arrived At: Physician: General Surgeon; Name: ; Notified At: ; Arrived At: Physician: Radiology; Name: ; Notified At: ; Arrived At: Physician: Respiratory; Name: ; Notified At: ; Arrived At: Physician: Lab; Name: ; Notified At: ; Arrived At: Historical: - Allergies: 14:39 No Known Allergies; ph - PMHx: 14:39 Hypertension; resolved after wt loss; ph - PSHx: 14:39 arm; ph - Immunization history:: Adult Immunizations unknown. - Social history:: Smoking status: unknown. - Immunization history: Last tetanus immunization: - up to date. Screenin:50 [facility] ED Fall Risk Assessment (Adult) History of falling in the last 3 months, ph including since admission Yes- single mechanical fall (1 pt) Confusion or Disorientation Yes (5 pts) Intoxicated or Sedated No (0 pts) Impaired Gait No (0 pts) Mobility Assist Device Used Yes (1 pt) Altered Elimination No (0 pt) Score/Fall Risk Level 3 or more points = High Risk Oriented to surroundings, Maintained a safe environment, Assessed \T\ reinforced patient's understanding of fall precautions, Hourly rounding (assess needs \T\ fall precautionary measures) done, Used ambulatory aids as needed (educated on \T\ assisted with). Abuse screen: Denies threats or abuse. Denies injuries from another. Nutritional screening: No deficits noted. Tuberculosis screening: No symptoms or risk factors identified. Primary Survey: 14:42 NO uncontrolled hemorrhage observed. A: The client is alert. Breathing/Chest: ph Spontaneous respiratory effort, equal unlabored respirations, breath sounds clear bilaterally, regular pattern, symmetrical chest rise and fall. Circulation: No external hemorrhage present. Regular and strong central pulse, skin warm/dry/normal color. Disability Pupils are equal, round, reactive to light and accommodation. Exposure/Environment: All clothing and personal items were removed. There is evidence of uncontrolled external hemorrhage. Provider notified immediately. Methods to control bleeding applied. A warming method has been applied: A warm blanket has been provided to the patient. 17:36 Reassessment Alertness and Airway: Awake and alert. The airway is patent. Breathing: ph Spontaneous respiratory effort, equal unlabored respirations, breath sounds clear bilaterally, regular pattern with symmetrical chest rise and fall. Circulation: No external hemorrhage noted. Regular and strong central pulse, skin warm/dry/normal color. Disability: Pupils Pupils are equal, round, reactive to light and accomodation. Alert. Assessment: 14:46 Reassessment: ERP at bedside for FAST exam. ph 16:09 General: Appears in no apparent distress. comfortable, Behavior is calm, cooperative. ph Pain: Complains of pain in back and face. Neuro: Level of Consciousness is awake, alert, obeys commands, Oriented to person, place, situation. Injury Description: Laceration sustained to submental area. Injury Description: Abrasion sustained to top of head. Injury Description: Abrasion sustained to occipital area skin tear to L elbow. 17:34 Musculoskeletal: Swelling present in right rodriguez. Injury Description: Abrasion sustained ph to right knee. Injury Description: Abrasion sustained to right rodriguez. Injury Description: Abrasion sustained to posterior aspect of left shoulder. 19:30 General: Appears comfortable, Behavior is calm, cooperative. Pain: Complains of pain in ha1 lateral aspect of right calf Pain does not radiate. Pain currently is 6 out of 10 on a pain scale. Quality of pain is described as burning, Pain began gradually, Is continuous, Aggravated by increased activity. Neuro: Level of Consciousness is awake, alert, obeys commands, Oriented to person, place, situation. Cardiovascular: Capillary refill < 3 seconds. Respiratory: Airway is patent Respiratory effort is even, unlabored, Respiratory pattern is regular, symmetrical. Injury Description: Abrasion sustained to forehead is CLEAN AND DRY. 20:25 Reassessment: Reassessment: FAX SHEET SENT. ha1 20:25 Reassessment: Patient and/or family updated on plan of care and expected duration. Pain ha1 level reassessed. Patient is alert, oriented x 3, equal unlabored respirations, skin warm/dry/pink. 20:45 Reassessment: FAX SHEET COM FIRMED IT WAS RECEIVED. ha1 21:23 Reassessment: Patient and/or family updated on plan of care and expected duration. Pain ha1 level reassessed. Patient is alert, oriented x 3, equal unlabored respirations, skin warm/dry/pink. Vital Signs: 14:36 BP 187 / 107; Pulse 75; Resp 18; Temp 98.2; Pulse Ox 98% on R/A; Weight 114.76 kg; ph Height 5 ft. 9 in. ; 15:27 BP 179 / 72; Pulse 75; Resp 18; Pulse Ox 98% on R/A; ph 17:00 BP 155 / 79; Pulse 85; Resp 18; Pulse Ox 99% on R/A; ph 18:30 BP 155 / 95; Pulse 103; Resp 18; Pulse Ox 99% on R/A; jp5 18:35 BP 141 / 92; Pulse 97; Resp 18; Pulse Ox 100% on R/A; ph 19:20 BP 155 / 95; Pulse 97; Resp 17 S; Pulse Ox 100% on R/A; ha1 20:20 BP 177 / 71; Pulse 90; Resp 17 S; Pulse Ox 99% on R/A; ha1 21:20 BP 157 / 82; Pulse 86; Resp 17 S; Temp 98.2(O); Pulse Ox 99% on R/A; ha1 14:36 Body Mass Index 37.36 (114.76 kg, 175.26 cm) ph Vanessa Coma Score: 14:46 Eye Response: spontaneous(4). Motor Response: obeys commands(6). Verbal Response: ph confused(4). Total: 14. 17:00 Eye Response: spontaneous(4). Motor Response: obeys commands(6). Verbal Response: ph confused(4). Total: 14. 18:35 Eye Response: spontaneous(4). Motor Response: obeys commands(6). Verbal Response: ph confused(4). Total: 14. Trauma Score (Adult): 14:46 Eye Response: spontaneous(1); Verbal Response: confused(1); Motor Response: obeys ph commands(2); Systolic BP: > 89 mm Hg(4); Respiratory Rate: 10 to 29 per min(4); [place] Score: 14; Trauma Score: 12 17:00 Eye Response: spontaneous(1); Verbal Response: confused(1); Motor Response: obeys ph commands(2); Systolic BP: > 89 mm Hg(4); Respiratory Rate: 10 to 29 per min(4); Vanessa Score: 14; Trauma Score: 12 18:35 Eye Response: spontaneous(1); Verbal Response: confused(1); Motor Response: obeys ph commands(2); Systolic BP: > 89 mm Hg(4); Respiratory Rate: 10 to 29 per min(4); [place] Score: 14; Trauma Score: 12 NIH Stroke Scale Scores: 17:14 NIHSS Score: 1 [facility] ED Course: 14:35 Patient arrived in ED. ph 14:36 Radha Yates, JACOBO is Primary Nurse. ph 14:36 Joanie Hanson FNP is PHCP. jh7 14:36 Bear Mckee MD is Attending Physician. jh7 14:39 Triage completed. ph 14:42 Arm band placed on Patient placed in an exam room, on a stretcher. ph 14:49 Patient has correct armband on for positive identification. Bed in low position. Call ph light in reach. Side rails up X2. Pulse ox on. NIBP on. 14:50 Patient maintains SpO2 saturation greater than 95% on room air. Thermoregulation: warm ph blanket given to patient. 14:57 CT Traumagram (Head C Spine CAP wo con) In Process Unspecified. EDMS 14:57 CT Facial Bones W/O Con In Process Unspecified. EDMS 16:07 Basic Metabolic Panel Sent. ph 16:07 CBC with Diff Sent. ph 16:07 Type And Screen Sent. ph 16:07 Initial lab(s) drawn, by me, sent to lab. T\T\S collected, blood band applied to patient. ph Missed attempt(s): 22 gauge in left antecubital area. Bleeding controlled, band aid applied, catheter tip intact. 16:49 Inserted saline lock: 22 gauge in right antecubital area, using aseptic technique. hb 17:10 Assist provider with laceration repair on submental area that was 2.5 cm. or less using ph sutures. Set up tray. Performed by Joanie ARCINIEGA Patient tolerated well. 17:14 Cleaned of incontinence. Linen changed. hb 17:30 XRAY Tib Fib RIGHT In Process Unspecified. EDMS 18:30 Casanova cath inserted, using sterile technique, 16 Fr., by me, balloon inflated, to ph gravity drainage, urine specimen collected. returned clear yellow urine. Patient tolerated well. 18:32 UDS Sent. jp5 18:35 Urinalysis w/ reflexes Sent. jp5 18:44 Ethanol Sent. jp5 18:44 Salicylate Sent. jp5 18:44 Acetaminophen Sent. jp5 18:44 Blood Culture Adult (2) Sent. jp5 19:02 Marcus Flor is Hospitalizing Provider. cp 21:25 Provided Education on: NEED FOR ADMIT. ha1 21:25 Patient admitted, IV remains in place. ha1 Administered Medications: 16:40 Drug: hydrALAZINE IVP 10 mg IVP once Route: IVP; Site: right antecubital; hb 18:35 Follow up: Response: No adverse reaction; Blood pressure is lowered ph 17:31 Drug: Lidocaine Infiltration (1 %) 20 ml 20 ml Infiltration once; to bedside Volume: 20 ph ml; Route: Infiltration; 18:35 Follow up: Response: No adverse reaction ph 18:22 Drug: NS 0.9% IV 1000 ml IV at 1 bolus Per protocol; 1000 mL bolus Route: IV; Rate: 1 ph bolus; Site: right antecubital; Medication: 21:25 VIS not applicable for this client. ha1 Output: 18:34 Urine: 650ml (Voided); Total: 650ml. ph Outcome: 19:02 Decision to Hospitalize by Provider. cp 21:23 Admitted to Med/surg accompanied by tech, via stretcher, room 410, with chart, Report ha1 called to JACOBO MAYEN 21:23 Condition: stable 21:23 Instructed on the need for admit, Demonstrated understanding of instructions, follow-up care, 21:25 Patient's length of stay in the Emergency Department was greater than 2 hours. ha1 21:27 Patient left the ED. ha1 NIH Stroke Scale - NIH Stroke Score Date: 11/14/2023 Time: 17:14 Total Score = 1 10. Dysarthria (speech clarity - read or repeat words) - 0(Normal) 11. Extinction and Inattention (visual/tactile/auditory/spatial/personal) - 0(No abnormality) 1a. Level of Consciousness (LOC) - 0(Alert) 1b. Level of Consciousness (LOC) (Month \T\ Age) - 0(Both) 1c. LOC Commands (Open \T\ Closes Eyes/Database Reporting Consultant) - 0(Both) 2. Best Gaze (Lateral Gaze Paresis) - 0(Normal) 3. Visual Field Loss - 0(No visual loss) 4. Facial Palsy - 0(Normal) 5a. Left Arm: Motor (10-second hold) - 0(No drift) 5b. Right Arm: Motor (10-second hold) - 0(No drift) 6a. Left Leg: Motor (5-second hold - always test supine) - 0(No drift) 6b. Right Leg: Motor (5-second hold - always test supine) - 0(No drift) 7. Limb Ataxia (finger/nose \T\ heel/rodriguez - test with eyes open) - 0(Absent) 8. Sensory Loss (pinprick arms/legs/face) - 0(Normal) 9. Best Language: Aphasia (description/naming/reading) - 1(Mild to moderate aphasia) Initials: [facility] Signatures: Dispatcher [employer] Radha Dwyer RN RN ph Bear Mehta PA PA cp Baxter, Heather, RN RN Joanie Hanson, RN LACTATION CONSULTANT RN LACTATION CONSULTANT 7 Bernadette Campbell RN RN ha1 Alesha Hay RN RN jp5 Corrections: (The following items were deleted from the chart) 21:02 20:45 Reassessment: ha1 ha1
--- NOTE | 2023-11-14 19:03 | EDPHYS ---
Physician Documentation [facility] Name: Preet Rios Age: 83 yrs Sex: Male : 1940 Arrival Date: 11/14/2023 Time: 14:34 Bed 16 Private MD: ED Physician Bear Mckee HPI: 11/13 14:36 This 83 yrs old Male presents to ER via EMS with complaints of Fall Injury. jh7 14:36 Details of fall: The patient fell from a height, down approximately 6 stairs. Onset: jh7 The symptoms/episode began/occurred acutely. Associated injuries: The patient sustained injury to the head, hematoma, neck injury, pain with movement, face, laceration. 17:14 EMS toned out for mechanical fall down 1 flight of stairs. They state that the patient jh7 denies any medical problems and is not on blood thinners. Unknown LOC. Reports that the patient seemed to become more confused and were out, but denies visual changes, slurred speech, or extremity weakness. Hematoma and abrasion noted to the head as well as a 3 cm chin laceration.. Historical: - Allergies: 14:39 No Known Allergies; ph - PMHx: 14:39 Hypertension; resolved after wt loss; ph - PSHx: 14:39 arm; ph - Immunization history:: Adult Immunizations unknown. - Social history:: Smoking status: unknown. - Immunization history: Last tetanus immunization: - up to date. ROS: 17:14 Constitutional: Negative for fever, chills, and weight loss, Eyes: Negative for injury, jh7 pain, redness, and discharge, Neck: Negative for injury, pain, and swelling, Cardiovascular: Negative for chest pain, palpitations, and edema, Respiratory: Negative for shortness of breath, cough, wheezing, and pleuritic chest pain, Abdomen/GI: Negative for abdominal pain, nausea, vomiting, diarrhea, and constipation, MS/Extremity: Negative for injury and deformity, 17:14 Back: Positive for pain at rest, 17:14 Skin: Positive for abrasion(s), hematoma, laceration(s), 17:14 Neuro: Positive for altered mental status, Negative for numbness, seizure activity, speech changes, syncope, tingling, visual changes, weakness, 17:14 All other systems are negative, Exam: 17:14 Constitutional: This is a well developed, well nourished patient who is awake, alert, jh7 and in no acute distress. Eyes: Pupils equal round and reactive to light, extra-ocular motions intact. Lids and lashes normal. Conjunctiva and sclera are non-icteric and not injected. Cornea within normal limits. Periorbital areas with no swelling, redness, or edema. 17:14 Chest/axilla: Normal chest wall appearance and motion. Nontender with no deformity. No lesions are appreciated. Cardiovascular: Regular rate and rhythm with a normal S1 and S2. No gallops, murmurs, or rubs. Normal PMI, no JVD. No pulse deficits. Respiratory: Lungs have equal breath sounds bilaterally, clear to auscultation and percussion. No rales, rhonchi or wheezes noted. No increased work of breathing, no retractions or nasal flaring. Abdomen/GI: Soft, non-tender, with normal bowel sounds. No distension or tympany. No guarding or rebound. No evidence of tenderness throughout. Back: No spinal tenderness. No costovertebral tenderness. Full range of motion. 17:14 Head/face: Noted is abrasion(s), that are moderate, of the forehead, hematoma, that is moderate, of the forehead, 17:14 Neck: C-spine: C-collar placed [employer]KE [employer]CH[employer]IC, Back board [employer]CH[employer]IC C-collar is removed, after CT scanning reveals no obvious unstable abnormality, vertebral tenderness, that is mild, appreciated at C7, ROM/movement: is normal, is supple, 17:14 Musculoskeletal/extremity: Extremities: noted in the right tib/fib: contusion, swelling, ROM: intact in all extremities, full active range of motion, Circulation is intact in all extremities. Sensation intact. 17:14 Skin: injury, abrasion(s), small abrasion noted, of the forehead, laceration(s), the wound is approximately 2.5 cm(s), of the chin, 17:14 Neuro: Orientation: Not oriented to time, Mentation: Memory: recent memory is impaired, Cranial nerves: extraocular movements are intact, Facial palsy and sensory deficits are absent. Cerebellar function: is grossly normal, Motor: is normal, Sensation: is normal, Vital Signs: 14:36 BP 187 / 107; Pulse 75; Resp 18; Temp 98.2; Pulse Ox 98% on R/A; Weight 114.76 kg; ph Height 5 ft. 9 in. ; 15:27 BP 179 / 72; Pulse 75; Resp 18; Pulse Ox 98% on R/A; ph 17:00 BP 155 / 79; Pulse 85; Resp 18; Pulse Ox 99% on R/A; ph 18:30 BP 155 / 95; Pulse 103; Resp 18; Pulse Ox 99% on R/A; jp5 18:35 BP 141 / 92; Pulse 97; Resp 18; Pulse Ox 100% on R/A; ph 19:20 BP 155 / 95; Pulse 97; Resp 17 S; Pulse Ox 100% on R/A; ha1 20:20 BP 177 / 71; Pulse 90; Resp 17 S; Pulse Ox 99% on R/A; ha1 21:20 BP 157 / 82; Pulse 86; Resp 17 S; Temp 98.2(O); Pulse Ox 99% on R/A; ha1 14:36 Body Mass Index 37.36 (114.76 kg, 175.26 cm) ph NIH Stroke Scale Scores: 17:14 NIHSS Score: 1 7 Vanessa Coma Score: 14:46 Eye Response: spontaneous(4). Motor Response: obeys commands(6). Verbal Response: ph confused(4). Total: 14. 17:00 Eye Response: spontaneous(4). Motor Response: obeys commands(6). Verbal Response: ph confused(4). Total: 14. 18:35 Eye Response: spontaneous(4). Motor Response: obeys commands(6). Verbal Response: ph confused(4). Total: 14. Trauma Score (Adult): 14:46 Eye Response: spontaneous(1); Verbal Response: confused(1); Motor Response: obeys ph commands(2); Systolic BP: > 89 mm Hg(4); Respiratory Rate: 10 to 29 per min(4); [place] Score: 14; Trauma Score: 12 17:00 Eye Response: spontaneous(1); Verbal Response: confused(1); Motor Response: obeys ph commands(2); Systolic BP: > 89 mm Hg(4); Respiratory Rate: 10 to 29 per min(4); [place] Score: 14; Trauma Score: 12 18:35 Eye Response: spontaneous(1); Verbal Response: confused(1); Motor Response: obeys ph commands(2); Systolic BP: > 89 mm Hg(4); Respiratory Rate: 10 to 29 per min(4); [place] Score: 14; Trauma Score: 12 Procedures: 17:14 Performed FAST exam. Negative. [facility] Laceration: 17:14 Wound Repair of 2.5cm ( 1.0in ) subcutaneous laceration to face. Distal [facility] neuro/vascular/tendon intact. Anesthesia: Local anesthetic administered with 7 mls of 1% lidocaine. Wound prep: Moderate cleansing with hibiclenz by ut. Skin closed with 5 5-0 Prolene using simple sutures and sterile technique. Dressed with non-adherent dressing. Patient tolerated well. MDM: 14:36 Patient medically screened. [facility] 18:10 Management of patient was discussed with the following: Hospitalist: Dr. Flor, who [facility] stated that he would come evaluate the patient.. 18:22 ED course: Spoke to the patient's son. He stated that his father has a history of [facility] dementia and went to check on the anchor at [place]. He states that he was unaware that he was in the hospital and would be up here soon.. 18:44 Transition of care: After a detail discussion of the patient's case, care is [facility] transferred to Bear BIANCHI. 11/13 14:37 Order name: Basic Metabolic Panel; Complete Time: 16:33 [facility] 11/13 14:37 Order name: CBC with Diff; Complete Time: 16:33 [facility] 11/13 14:37 Order name: Type And Screen; Complete Time: 16:59 [facility] 11/13 14:37 Order name: Urinalysis w/ reflexes; Complete Time: 18:40 [facility] 11/13 16:55 Order name: Troponin High Sensitivity; Complete Time: 17:28 [facility] 11/13 16:59 Order name: Lactate w/ 2H reflex if indic.; Complete Time: 18:02 [facility] 11/13 18:03 Order name: Blood Culture Adult (2) [facility] 11/13 18:17 Order name: Acetaminophen [facility] 11/13 18:17 Order name: Salicylate [facility] 11/13 18:17 Order name: Ethanol [facility] 11/13 18:24 Order name: UDS; Complete Time: 18:57 [facility] 11/13 14:37 Order name: CT Traumagram (Head C Spine CAP wo con); Complete Time: 15:36 [facility] 11/13 14:43 Order name: CT Facial Bones W/O Con; Complete Time: 15:36 [facility] 11/13 17:13 Order name: XRAY Tib Fib RIGHT; Complete Time: 17:43 [facility] 11/13 14:37 Order name: Labs collected and sent; Complete Time: 16:07 [facility] 11/13 14:38 Order name: Dressing - Wound; Complete Time: 16:07 [facility] 11/13 14:38 Order name: Gloves, Sterile; Complete Time: 16:07 [facility] 11/13 14:38 Order name: Prolene, Sutures; Complete Time: 16:07 [facility] 11/13 14:38 Order name: Setup Suture Tray; Complete Time: 16:07 [facility] 11/13 14:38 Order name: Wound Care; Complete Time: 20:03 [facility] 11/13 15:17 Order name: EKG - Nurse/Tech; Complete Time: 17:31 [facility] 11/13 15:17 Order name: Recheck B/P; Complete Time: 15:28 [facility] 11/13 17:00 Order name: Straight Cath - Urine; Complete Time: 18:22 [facility] EC:51 Rate is 82 beats/min. Rhythm is regular. QRS [place] is Normal. [place] interval is normal at [facility] 208 msec. QRS interval is normal at 90 msec. QT interval is normal at 408 msec. No Q waves. T waves are Normal. Clinical impression: NSR w/ Non-specific ST/T Changes. Administered Medications: 16:40 Drug: hydrALAZINE IVP 10 mg IVP once Route: IVP; Site: right antecubital; hb 18:35 Follow up: Response: No adverse reaction; Blood pressure is lowered ph 17:31 Drug: Lidocaine Infiltration (1 %) 20 ml 20 ml Infiltration once; to bedside Volume: 20 ph ml; Route: Infiltration; 18:35 Follow up: Response: No adverse reaction ph 18:22 Drug: NS 0.9% IV 1000 ml IV at 1 bolus Per protocol; 1000 mL bolus Route: IV; Rate: 1 ph bolus; Site: right antecubital; Disposition Summary: 11/14/23 19:02 Hospitalization Ordered Notes: Hospitalization Status: Inpatient Admission cp Provider: Baidoo, Marcus cp Location: Telemetry/MedSurg (Inpatient) cp Condition: Stable cp Problem: new cp Symptoms: have improved cp Bed/Room Type: Standard cp Room Assignment: 410(11/14/23 19:48) rv1 Diagnosis - Altered mental status, unspecified cp Forms: - Medication Reconciliation Form cp - SBAR form cp - Leadership Thank You Letter cp NIH Stroke Scale - NIH Stroke Score Date: 11/14/2023 Time: 17:14 Total Score = 1 10. Dysarthria (speech clarity - read or repeat words) - 0(Normal) 11. Extinction and Inattention (visual/tactile/auditory/spatial/personal) - 0(No abnormality) 1a. Level of Consciousness (LOC) - 0(Alert) 1b. Level of Consciousness (LOC) (Month \T\ Age) - 0(Both) 1c. LOC Commands (Open \T\ Closes Eyes/Meat Loiner) - 0(Both) 2. Best Gaze (Lateral Gaze Paresis) - 0(Normal) 3. Visual Field Loss - 0(No visual loss) 4. Facial Palsy - 0(Normal) 5a. Left Arm: Motor (10-second hold) - 0(No drift) 5b. Right Arm: Motor (10-second hold) - 0(No drift) 6a. Left Leg: Motor (5-second hold - always test supine) - 0(No drift) 6b. Right Leg: Motor (5-second hold - always test supine) - 0(No drift) 7. Limb Ataxia (finger/nose \T\ heel/rodriguez - test with eyes open) - 0(Absent) 8. Sensory Loss (pinprick arms/legs/face) - 0(Normal) 9. Best Language: Aphasia (description/naming/reading) - 1(Mild to moderate aphasia) Initials: [facility] Signatures: Dispatcher [employer] Radha Dwyer RN RN ph Page, Corey, PA PA cp Baxter, Heather, RN RN hb Hadash, Jennifer, FNP FNP [facility] Bernadette Campbell RN RN ha1 [place] rv1 Corrections: (The following items were deleted from the chart) 19:48 19:02 cp rv1
[2023-11-14] MEDS ORDERED: ONDANSETRON 4 MG/2 ML VIAL IV PRN (19:37)
--- NOTE | 2023-11-14 19:51 | P.HP ---
Certification for Inpatient Patient admitted to: Observation With expected LOS: <2 Midnights Practitioner: I am a practitioner with admitting privileges, knowledge of patient current condition, hospital course, and medical plan of care. Services: Services provided to patient in accordance with Admission requirements found in Title 42 Section 412.3 of the Code of Federal Regulations Patient History Date of Service: 11/14/23 Reason for admission: Fall with altered mental status History of Present Illness: 83-year-old with a history of hypertension and dementia was brought to the emergency department because patient fell down a flight of stairs and hit his head developing laceration to the left jaw area and scalp contusion. Family report patient has baseline dementia and has been experiencing progressive cognitive decline. He lives in [place] at [place] and has to climb stairs to access his home. Patient was awake but confused and could not provide any history. There was a report of a period of loss of consciousness. CT scans and x-rays did not show any fracture, no intracranial bleed. Blood work is unremarkable except mild leukocytosis. Urine toxicology screen is pending. Patient is hospitalized for close monitoring. Allergies No Known Allergies Allergy (Unverified 02/20/23 11:20) Home Medications: Atorvastatin Calcium [Lipitor] 40 mg PO BEDTIME #30 tab 08/06/19 Ciprofloxacin HCl [Cipro] 500 mg PO BID #10 tab 02/23/23 Hydrocodone 5/APAP 325 [[place] 5/325*] 1 tab PO Q6H PRN #12 tab 02/23/23 metroNIDAZOLE [Flagyl] 500 mg PO Q8H #15 tab 02/23/23 - Past Medical/Surgical History Diabetic: No -: Hypertension -: Appendectomy -: Tonsillectomy -: Right hand and Wrist surgery Psychosocial/ Personal History: Patient lives at home with his . - Family History Mother -: Lung disease, Cancer Notes: Lung cancer - Social History Alcohol use: No CD- Drugs: No Caffeine use: Yes Review of Systems Other: No reported nausea vomiting or diarrhea. No reported fever. I am unable to obtain full review of systems due to confusion. Physical Examination - Physical Exam General: In no apparent distress, Confused, Other (Awake) HEENT: PERRLA, Mucous membr. moist/pink, Other (Areas of contusion on the scalp, sutured laceration left jawline.), Sclerae nonicteric Neck: Supple, JVD not distended Respiratory: Clear to auscultation bilaterally, Normal air movement Cardiovascular: No edema, Regular rate/rhythm, Normal S1 S2 Capillary refill: <2 Seconds Gastrointestinal: Normal bowel sounds, Soft and benign, Non-distended, No tenderness Musculoskeletal: No swelling, No tenderness Integumentary: No rashes, No cyanosis Neurological: Normal speech, Normal strength at 5/5 x4 extr, Other (Confused), Dementia Lymphatics: No axilla or inguinal lymphadenopathy - Studies Laboratory Data (last 24 hrs) 11/14/23 11/14/23 16:00 16:00 WBC 12.20 H Hgb 14.5 Hct 42.7 Plt Count 275 Sodium 137 Potassium 3.7 BUN 21 H Creatinine 1.25 Glucose 121 H Assessment and Plan - Problems (Diagnosis) (1) Fall Current Visit: Yes Status: Acute (2) AMS (altered mental status) Current Visit: Yes Status: Acute (3) Dementia Current Visit: Yes Status: Acute (4) Hypertension Current Visit: No Status: Chronic Qualifiers: Hypertension type: primary hypertension Qualified Code(s): I10 - Essential (primary) hypertension - Plan Place under observation on the medical floor Supportive measures with IV fluid-D5 half-normal saline. Neurochecks N.p.o. overnight and start feeding in a.m. once mental status has improved. Repeat head CT within 24 hours to rule out intracranial bleed or subdural hematoma MRI of the brain to assess for cerebral contusion if mental status does not improve. PT consult to assess patient's functional status. Resume home antihypertensives. DVT prophylaxis: SCD - Advance Directives Does patient have a Living Will: No Does patient have a Durable POA for Healthcare: No
[2023-11-14] MEDS ORDERED: HYDRALAZINE HCL 20 MG/ML VIAL IV PRN (20:16)
[2023-11-14] MEDS: D5 0.45 NS 1,000 ML IV SCH (22:28)
[2023-11-14] MEDS: ACETAMINOPHEN 500 MG TAB PO PRN (22:28)
[2023-11-14 23:37] VITALS: BMI 37.3
[2023-11-15 04:55] LABS: Absolute Basophils 0.1 K/uL (0-0.5); Absolute Eosinophils 0.1 K/uL (0-0.5); Absolute Lymphocytes (CBC) 1.6 K/uL (0.7-4.9); Absolute Monocytes 0.8 K/uL (0.1-1.3); Absolute Neutrophil 8.6 K/uL (1.8-8.0); Basophils % 0.6 % (0-1.3); Eosinophils % 0.5 % (0-4.4); Hematocrit 39.1 % (39.6-49.0); Hemoglobin 13.1 g/dL (13.6-17.9); Lymphocytes % 14.5 % (15.3-44.8); MCH 29.4 pg (27.0-35.0); MCHC 33.5 g/dL (32.0-36.0); MCV 87.9 fL (80-100); Neutrophils % 77.4 % (41.7-73.7); Platelets 257 thou/uL (152-406); RBC Red Blood Cell Count 4.45 M/uL (4.33-5.43); Red Cell Distribution Width 13.9 % (12.1-15.2)
[2023-11-15 05:32] LABS: Anion Gap 8.5 mEq/L (5.0-15.0); Magnesium 1.9 mg/dL (1.6-2.4); Phosphorus 2.6 mg/dL (2.5-4.9); Potassium 3.5 mEq/L (3.5-5.1); Thyroid Stimulating Hormone 1.6 uIU/mL (0.358-3.740)
[2023-11-15] MEDS: D5 0.45 NS 1,000 ML IV SCH (10:36)
[2023-11-15] MEDS: lisinopriL 10 MG TAB PO ONE (12:36)
--- NOTE | 2023-11-15 14:21 | HP ---
Date of Admission: 11/15/2023 Chief Complaint: Fall. History Of Present Illness: This is an 83-year-old male patient who lives at home with his who is not in good health and they both live by themselves. Yesterday, the patient and his were at their son's house who lives close to them and the patient decided to go to adventism to check on some things and he drove himself to the advent[employer] and as he was climbing steps at the advent[employer], he ended up losing balance and fall down and he fell down multiple steps and he was on the ground and somebody found him after some time and called ambulance and he was brought into the ER. After he came to emergency room, staff in the emergency room went through his notebook that he had with him and ended up contacting his son to notify him about the patient being in the hospital in the emergency room. After workup was done in the emergency room, the patient was admitted to the hospital under hospitalist service and this morning hospitalist realized that this was my patient, so they contacted me this morning. I saw the patient this morning. The patient's 2 sons were present with him, one who lives locally here, other one who lives out of town. When I interviewed the patient, his , both sons, and [id number], they were all present in the room and when I asked patient actually what happened, he was telling me that he was in his go-cart and he describes golf cart as a go-cart and he fell down, which is not true because the true story is that he was climbing stairs at the adventism and fell down the stairs. The patient is obviously having memory problem, which was very clear today as he was not clear on the details about the event that happened yesterday. He is not able to tell me his age either. The patient's family has informed me that the patient is having trouble using the telephone. He also has trouble operating the TV remote. He leaves the refrigerator door open. Sometimes, he leaves his car running with all the doors open, so family has noted over a period of time that he is having impaired cognition. Family is also concerned that he is not taking his medications as prescribed. He is one of my relatively new patient. I have seen him probably couple of times at the office and last visit was July of last year and he was prescribed lisinopril and trazodone, but we believe that he is not taking it as prescribed on a regular basis. Allergies: NO KNOWN ALLERGIES. Medications: Trazodone 50 mg at bedtime and lisinopril 5 mg daily, but we believe that he is not taking those medications as prescribed on a regular basis. Review of Systems: Dermatology: Has multiple skin abrasions since the fall yesterday. REGISTERED NURSE MIDWIFE: Impaired cognition. All other systems reviewed and negative. Medical History: Significant for hypertension, insomnia, hyperlipidemia, diverticulosis, renal cyst. Past Surgical History: Tonsillectomy, appendectomy, cholecystectomy and right wrist/hand surgery. Family History: Father had parkinson disease, mother had lung cancer and brother had ALS. Social History: Prior history of smoking and negative for alcohol use. Physical Examination: Vital Signs: This morning, temperature 97.1, pulse 67, respiratory rate 18, blood pressure 179/81, oxygen saturation 99%. Height 5 feet 9 inches, weight 253 pounds. General: Awake, alert, oriented, not in distress. HEENT: Head atraumatic, normocephalic. Conjunctivae nonerythematous. Sclerae white. Mouth, no thrush or edema noted. Ears/Nose, no mass, lesion, discharge noted. Neck: Supple. No JVD, lymph nodes, bruit, thyromegaly noted. Lungs: Bilateral good equal air entry. Clear to auscultation. No rhonchi. No rales. Heart: Normal heart sounds, no murmur or gallop. Abdomen: Soft, bowel sounds normal. No guarding, rigidity, tenderness, mass, hepatosplenomegaly, distention, or bruit noted. Extremities: No leg edema. No calf tenderness. Skin: The patient has abrasion over the right posterior scalp and left frontal scalp, area of laceration to left jawline area where sutures were applied in the emergency room and has contusion around and below this area involving his neck. No discharge, bleeding, or swelling noted there. Left elbow and left lower arm area has a superficial skin abrasion. Right anterior leg has also small area of contusion with abrasion. There is no bleeding from any such areas. Lymphatics: No lymph node enlargement in neck, supraclavicular, infraclavicular region. Neuro: No focal neurological deficit. Chest: Unremarkable. External Genitalia: Deferred. Rectal: Deferred. Laboratory Data: Yesterday, white count 12.20, hemoglobin 14.5, platelets 275. Today, white count 11.10, hemoglobin 13.1, platelets 257. Yesterday, sodium 137, potassium 3.7, chloride 103, bicarb 28, BUN 21, creatinine 1.25, glucose 121. Troponin 31. Initial lactic acid level was 2.1. Repeat lactic acid 1.7. Today, sodium 135, potassium 3.5, chloride 103, bicarb 27, BUN 19, creatinine 1.03, glucose 134, TSH 1.6. Urine toxicology screen was negative. Serum alcohol level less than 10. Urinalysis negative. CAT scan of the face was negative for any fracture of the facial bone. Right tibia and fibula x-ray was negative for fracture and CAT scan of the head, C-spine, chest, abdomen, pelvis per Trauma protocol was negative for any acute findings. CT of the head was negative for any acute intracranial changes. No evidence of any hemorrhage. CAT scan of the neck had shown evidence of cervical spondylosis with moderate spinal stenosis at C5-6 level and CAT scan of the chest had shown evidence of coronary artery disease, aortic wall calcification, mitral annular calcification. CAT scan of abdomen had shown bilateral renal cyst and degenerative changes in the lumbar spine. Impression: 1. Laceration, face. 2. Multiple contusions/abrasions, scalp, left arm, right leg. 3. Hypertension. 4. Insomnia. 5. Senile dementia. 6. Lumbar spondylosis. 7. Cervical spondylosis. 8. Bilateral renal cysts. 9. Coronary artery disease. Plan: We will go ahead and admit the patient to hospital for further evaluation and management of this problem. The patient has a Casanova catheter that was placed in the emergency room. We will remove that. I will consult Physical Therapy to help ambulate the patient. We will consult Social Service for discharge planning and arrange for a walker for home use. We will also arrange for home health care and home physical therapy and home health nurse to clean skin abrasions with normal saline and apply Neosporin and cover with sterile nonstick gauze until it is healed and similar dressing and wound care will be provided in the hospital as well. Fall precaution was ordered. We will continue lisinopril and trazodone per order. Reduce IV fluid to maintenance fluid. I did talk to patient in presence of his family members, i.e., 2 sons, 1 [id number] and and fall precaution was discussed with him. Also, I gave him my recommendation that he should not drive car for safety reasons and I have discussed with family regarding ongoing care on outpatient basis and my recommendation is for the patient to go to assisted care facility. The patient's , her health is probably either equally bad or worse than patient's health. So at this point, it will be best for both of them to move into assisted care facility and the patient's son feels like that the patient will not agree to this, but until something changes the patient's son who lives locally here is willing to try to stay with them at their house to try to help them, but I was very clear to patient and patient's family that he should not be driving car. We will repeat another CAT scan of the brain today to make sure that there is no evidence of any bleed and plan is to discharge him to go home tomorrow. JOSETTE/MODL Voice ID: [id number] YONATAN
--- NOTE | 2023-11-15 14:38 | RAD REPORT ---
EXAM DESCRIPTION: CT - Head Brain Wo Cont - 11/15/2023 2:32 pm CLINICAL HISTORY: fall, head injury Fall, trauma, head injury COMPARISON: Facial Bones W/ Mpr dated 11/14/2023; Head Brain Wo Cont dated 03/26/2023 TECHNIQUE: All CT scans are performed using dose optimization technique as appropriate and may inclu de automated exposure control or mA/KV adjustment according to patient size. FINDINGS: No intracranial hemorrhage, hydrocephalus or extra-axial fluid collection.Moderate general ized brain atrophy is present with moderate periventricular and deep white matter chronic microvascul ar ischemic changes.No areas of brain edema or evidence of midline shift. Mild vertebral atherosclero sis. The paranasal sinuses and mastoids are clear. The calvarium is intact. IMPRESSION: No acute intracranial abnormality.
[2023-11-15] MEDS: PNEUMOCOCCAL VACCINE 0.5 ML IMVAC ONE (14:49)
[2023-11-15] MEDS: INFLUENZA VACCINE (for 6+ mo) 0.5 ML DOSE IMVAC ONE (14:49)
[2023-11-15] MEDS: ENOXAPARIN 40 MG/0.4 ML SQ SCH (20:22)
[2023-11-15] MEDS: TRAZODONE 50 MG TABLET PO SCH (20:22)
[2023-11-15 22:30] VITALS: O2SAT 98
[2023-11-16 06:51] VITALS: TEMP 97.3
[2023-11-16] MEDS ORDERED: lisinopriL 10 MG TAB PO SCH (09:00)
[2023-11-16 09:48] VITALS: BP 165/79
--- NOTE | 2023-11-16 14:19 | EKG ---
Test Date: 2023-11-14 Test Time: 16:51:43 Internal Medicine Veterinary Technician: PH MEASUREMENT RESULTS: Intervals: Rate: 82 MO: 208 QRSD: 90 QT: 408 QTc: 476 Mathis: P: MO: 208 QRS: -5 T: 50 INTERPRETIVE STATEMENTS: Sinus rhythm with occasional premature ventricular complexes Possible Inferior infarct, age undetermined Abnormal ECG Compared to ECG 02/18/2023 19:49:22 Ventricular premature complex(es) now present Myocardial infarct finding now present Right bundle-branch block no longer present Electronically Signed On 11-16-23 14:14:46 CDT by Jesus Plascencia
--- NOTE | 2023-11-16 21:39 | DS ---
Date of Discharge: 11/16/2023 Disposition: Discharged to go home. Physical Examination: HEENT: Unremarkable. Lungs: Clear to auscultation. Heart: Sounds normal. Abdomen: Soft. Bowel sounds normal. No guarding, rigidity, tenderness, distention. Extremities: No leg edema. Skin: Multiple abrasions as noted yesterday has remained unchanged. Hospital Course: An 83-year-old pleasant male patient, who was admitted to the hospital after a fall and multiple skin abrasions and laceration to left chin area. Please see dictated H and P for more information. After patient was evaluated in the emergency room, he was admitted to the hospital. Schreiber tures were applied to his left jaw line laceration and had multiple skin abrasions over the scalp, le ft arm, right leg, etc. Initial CAT scan of the head was negative for any acute intracranial changes . Repeat CAT scan done yesterday afternoon was negative as well. Physical therapy was consulted. T he patient has started to ambulate well and today he was discharged to go home in stable condition. The patient is not compliant with his medication and he was prescribed trazodone and lisinopril, but he was not taking it as prescribed. He is having increasing problem with impaired cognition as repor rony by family and I have advised him not to drive car anymore and I have also discussed details with the patient's 2 sons yesterday and recommended that the patient should not be living by himself and e ither somebody should be living with them or the patient and his should consider moving into [facility] facility. Family will have this discussion and if the patient agrees, then they will go a head and start helping patient with appropriate arrangements. Final Diagnoses: 1.Laceration, face. 2.Multiple contusions/abrasions, scalp, left arm, right leg, face. 3.Hypertension. 4.Insomnia. 5.Mild dementia. 6.Lumbar spondylosis. 7.Cervical spondylosis. 8.Bilateral renal cysts. 9.Coronary artery disease. 10.Hyperlipidemia. Discharge Medications And Instructions: 1.Do not drive car. 2.Continue to take trazodone 50 mg daily at bedtime and lisinopril 5 mg daily in morning. 3.Take Tylenol 500 mg 3 times a day as needed for pain. 4.Clean skin abrasions over head, chin, arm, and leg with normal saline solution and apply Neosporin and cover with sterile nonstick gauze daily. 5.Follow up at my office next week. 6.Social Service was consulted to make arrangements for home health care services and home physical therapy services. Laboratory Data: Upon admission, sodium 137, potassium 3.7, chloride 103, bicarb 28, BUN 21, creatin ine 1.25. Yesterday, sodium 135, potassium 3.5, chloride 103, bicarb 27, BUN 19, creatinine 1.03, gl ucose 134. TSH 1.6. CBC upon admission, white count 12.2, hemoglobin 14.5, platelets 275. Yesterda y, white count 11.1, hemoglobin 13.1, platelets 257. JOSETTE/MODL Voice ID: [id number] Report ID: [id number]
== END 2023-11-16 08:55 | disposition home health service (06) ==
LOC: ER 14:34 → ERHOLD 19:34 → 4TH 20:12
PROVIDERS: ADMIT Internal Medicine; ATTEND Internal Medicine
PROC: 0JQ10ZZ Repair Face Subcutaneous Tissue and Fascia, Open Approach (ICD-10-PCS; principal; 2023-11-14)
DX: S01.81XA Laceration without foreign body of other part of head, initial encounter (principal); S40.022A Contusion of left upper arm, initial encounter; S80.11XA Contusion of right lower leg, initial encounter; S00.03XA Contusion of scalp, initial encounter; R41.82 Altered mental status, unspecified; F03.90 Unspecified dementia, unspecified severity, without behavioral disturbance, psychotic disturbance, mood disturbance, and anxiety; W10.9XXA Fall (on) (from) unspecified stairs and steps, initial encounter; Y93.89 Activity, other specified; Y92.22 Religious institution as the place of occurrence of the external cause; G47.00 Insomnia, unspecified; M47.896 Other spondylosis, lumbar region; M47.892 Other spondylosis, cervical region; N28.1 Cyst of kidney, acquired; I25.10 Atherosclerotic heart disease of native coronary artery without angina pectoris; E78.5 Hyperlipidemia, unspecified
CPT/HCPCS: 93005; 87040 ×2; 85025 ×2; 81001; 80048 ×2; 36415; 86900; 83735; 86850; 84100; 86901; 83605 ×2; 84443; 84484; 80307; 70450 ×2; 71250; 72125; 70486; 76377; 73590; 51702; 96374; 99285; 80143; 80179; 82077; 12011; J0360; J2001; J1650; J7799 ×3; J7030; G0378 ×4

== ENCOUNTER 2024-03-24 18:09 | Inpatient (IN) | payer OTHER ==
[2024-03-24 18:41] LABS: Absolute Lymphocytes (CBC) 0.3 K/uL (0.7-4.9); Absolute Monocytes 0.1 K/uL (0.1-1.3); Absolute Neutrophil 12.6 K/uL (1.8-8.0); Basophils % 0.3 % (0-1.3); Eosinophils % 0.2 % (0-4.4); Hematocrit 42.1 % (39.6-49.0); Hemoglobin 13.7 g/dL (13.6-17.9); Lymphocytes % 2.5 % (15.3-44.8); MCH 28.9 pg (27.0-35.0); MCHC 32.4 g/dL (32.0-36.0); MCV 89.1 fL (80-100); MPV 7.5 fL (7.6-11.3); Monocytes % 0.5 % (3.3-12.3); Neutrophils % 96.5 % (41.7-73.7); Platelets 215 thou/uL (152-406); RBC Red Blood Cell Count 4.73 M/uL (4.33-5.43); Red Cell Distribution Width 13.9 % (12.1-15.2)
[2024-03-24] MEDS ORDERED: NA CHLORIDE 0.9% 2,000 ML ONE (18:47)
[2024-03-24] MEDS ORDERED: NA CHLORIDE 0.9% 500 ML ONE ×2 (18:48→22:35)
[2024-03-24 18:50] LABS: Specific Gravity 1.014 (1.005-1.030); Sqamous Epithelial None Seen /HPF (None Seen); Urine Bacteria <20 /HPF (<20); Urine Bilirubin NEGATIVE (Negative); Urine Blood 3+ (OVER) (Negative); Urine Clarity Extremely Turbid (Clear); Urine Color Light-Orange (Yellow); Urine Culture Reflex Order REFLEXED; Urine Glucose NEGATIVE (Negative); Urine Ketones NEGATIVE (Negative); Urine Microscopic Reflex YN ORDER UMIC; Urine Mucus Slight /HPF (None Seen); Urine Nitrite NEGATIVE (Negative); Urine Protein 2+ (Negative); Urine RBC >50 /HPF (None Seen); Urine Urobilinogen Normal (Normal); Urine WBC 20-50 /HPF (<5); Urine pH 5.5 (5.0-7.0)
[2024-03-24 19:01] LABS: Albumin 3.1 g/dL (3.4-5.0); Albumin/Globulin Ratio 0.8 (1.1-1.8); Anion Gap 11.5 mEq/L (5.0-15.0); Bilirubin Total 1.2 mg/dL (0.2-1.0); Potassium 3.5 mEq/L (3.5-5.1); Protein, Total 7.1 g/dL (6.4-8.2)
[2024-03-24 19:07] LABS: PT Prothrombin Time 14.5 SECONDS (9.4-12.5); PTT, Activated Partial Thromb 32.2 SECONDS (24.3-36.9); Protime INR 1.3
[2024-03-24 19:08] LABS: SARS-CoV-2 Antigen CONTROL BLUE LINE VIS/BG OK
[2024-03-24 19:09] LABS: SARS-CoV-2 Antigen Rapid Res Negative (Negative)
[2024-03-24] MEDS ORDERED: NA CHLORIDE 0.9% 100 ML ONE (19:13)
[2024-03-24] MEDS ORDERED: CEFEPIME 1 GM/VIAL ONE (19:13)
[2024-03-24 19:14] LABS: Troponin High Sensitivity 528.8 pg/mL (<58.9)
[2024-03-24] MEDS ORDERED: NOREPINEPHRINE BITARTRATE/D5W 4 MG/250 ML KIT IV ONE (19:27)
[2024-03-24] MEDS ORDERED: ACETAMINOPHEN 650MG/RECT SUPP PR ONE (19:40)
--- NOTE | 2024-03-24 20:06 | EDPHYS ---
Physician Documentation [facility] Name: Preet Rios Age: 83 yrs Sex: Male : 1940 Arrival Date: 03/24/2024 Time: 18:09 Bed 7 Private MD: ED Physician Vlad Gregory HPI: 03/24 18:25 This 83 yrs old Male presents to ER via Stretcher with complaints of Altered. rn 18:25 The patient presents with decreased responsiveness. Onset: The symptoms/episode rn began/occurred at an unknown time. Possible causes: unknown. Current symptoms: In the emergency department the patient's symptoms are unchanged from the initial presentation. The patient has experienced similar episodes in the past. Family member reports saw PCP Dr. Durán today in the office, seem to be a little bit agitated yesterday and today. Was feeling cold with chills and generalized weakness, required assistance to get into the vehicle from the clinic. Got home and exhibited decreased responsiveness. Otherwise had no focal complaints. Family member reports has happened before with overdose of his medication but she does not believe he took his Seroquel in clinic today. Instead he took his memantine and metoprolol.. Historical: - Allergies: 18:23 No Known Allergies; tl4 - Immunization history:: Adult Immunizations unknown. - Infectious Disease History:: Denies. - Social history:: Smoking status: Patient/guardian denies using tobacco, but has a distant history of tobacco abuse. - Family history:: not pertinent. - Hospitalizations: : No recent hospitalization is reported. ROS: 18:25 Unable to obtain ROS due to altered mental status, rn Exam: 18:25 Constitutional: This is a well developed, well nourished patient who is somnolent, rn responsive only to painful stimuli Head/Face: Normocephalic, atraumatic. ENT: No stridor, dentures in place Cardiovascular: Regular rate and rhythm . No pulse deficits. Respiratory: Tachypneic, crackles, shallow breathing Abdomen/GI: Soft, nondistended MS/ Extremity: Pulses equal, no cyanosis. Neuro: Patient is somnolent, opens eyes to painful stimuli. 20:10 ECG was reviewed by the Attending Physician. rn Vital Signs: 18:20 BP 82 / 47; Pulse 100; Resp 32; Temp 103.2(R); Pulse Ox 88% on R/A; Weight 81.74 kg; hb Height 5 ft. 9 in. ; 18:38 BP 78 / 44; Pulse 87; Resp 24; Pulse Ox 100% on Non-rebreather mask; hb 19:00 BP 93 / 49; Pulse 73; Resp 19; Pulse Ox 100% on 15 lpm Non-rebreather mask; cp4 19:15 BP 95 / 43; Pulse 69; Resp 19; Pulse Ox 100% on 15 lpm Non-rebreather mask; cp4 19:30 BP 93 / 46; Pulse 71; Resp 19; Pulse Ox 100% on 15 lpm Non-rebreather mask; cp4 19:31 BP 95 / 43; rn 19:45 BP 110 / 47; Pulse 75; Resp 17; Pulse Ox 100% on 15 lpm Non-rebreather mask; cp4 20:00 BP 93 / 51; Pulse 68; Resp 18; Pulse Ox 100% on 15 lpm Non-rebreather mask; cp4 20:15 BP 89 / 45; Pulse 65; Resp 17; Pulse Ox 100% on 15 lpm Non-rebreather mask; cp4 20:30 BP 103 / 41; Pulse 71; Resp 18; Pulse Ox 100% on 15 lpm Non-rebreather mask; cp4 20:45 BP 94 / 50; Pulse 68; Resp 18; Pulse Ox 100% on 15 lpm Non-rebreather mask; cp4 21:00 BP 95 / 50; Pulse 68; Resp 18; Pulse Ox 100% on 2 lpm NC; cp4 21:15 BP 97 / 60; Pulse 68; Resp 18; Pulse Ox 100% on 2 lpm NC; cp4 21:30 BP 102 / 49; Pulse 69; Resp 18; Pulse Ox 100% on 2 lpm NC; cp4 18:20 Body Mass Index 26.61 (81.74 kg, 175.26 cm) hb Procedures: 19:03 Central Line: the site was prepped with Betadine, in sterile fashion, a triple lumen rn catheter was inserted, in the right femoral vein, in 1 attempts. placement was verified, by blood return, the site was dressed with Tegaderm, using sterile technique, the patient tolerated the procedure, well. MDM: 18:17 Patient medically screened. rn 18:23 Management of patient was discussed with the following: Primary Care Provider: Case rn discussed with Dr. Durán, patient's PCP, states was at baseline at office, started to report feeling cold and chills prior to leaving. Dr. Durán states he has history of dementia and has been altered before. He states that he would go down the septic pathway at this point especially given new vital signs.. 19:04 ED course: Rectal temperature 103.2. Altered mental status likely due to infection.. rn 19:31 ED course: Patient with blood pressure improving after fluids. Still altered, started rn on Levophed in addition to the fluids to improve cerebral blood flow and check for clinical response of improved mental status. Sepsis reevaluation complete. Cefepime ordered.. 20:01 Differential Diagnosis: electrolyte abnormality, pneumonia, sepsis, UTI, volume rn depletion. Differential Diagnosis: intracranial bleed. Data reviewed: vital signs, nurses notes. Data reviewed: lab test result(s), EKG, radiologic studies, plain films, and as a result, I will admit patient. Consideration of Admission/Observation Patient was admitted/placed on observation. Escalation of care including admission/observation considered. Independent interpretation of the following test(s) in the Emergency Department EKG: See my EKG interpretation above X-Ray: My interpretation is Chest x-ray images show bilateral pulmonary opacities per my interpretation. Care significantly affected by the following chronic conditions: dementia. Counseling: I had a detailed discussion with the patient and/or guardian regarding the historical points, exam findings, and any diagnostic results supporting the discharge/admit diagnosis, lab results, the need for further work-up and treatment in the hospital. Response to treatment: the patient's symptoms have mildly improved after treatment, and as a result, I will admit patient. ED course: Pt evaluated by Dr. Durán, accepts patient for admission.. ED course: Pt more alert, BP improved, will admit to Dr. Durán for further care. 30ml/kg sepsis bolus almost complete. Sepsis reevaluation completed. . 20:05 ED course: I personally spent 35 minutes engaged in work directly related to the rn individual patient's care. This does not include any time spent performing procedures. The patient has been deemed critically ill because of hypotension, altered mental status, unresponsiveness, requiring resuscitation, management of severe sepsis with septic shock, pressor administration and admission to the hospital.. 20:34 ED course: Evaluated patient at bedside with Dr. Durán, consideration for transfer rn given, but is elderly patient with CODE STATUS in question, PCP is Dr. Durán, just seen in clinic today, and I anticipate quick turnaround and hopefully taken off of pressors soon as seems to be clinically improving already. After discussion with family and Dr. Durán, decision made to admit here and will downgrade from ICU as soon as safely possible.. 03/24 18:18 Order name: Blood Culture Adult (2) rn 03/24 18:18 Order name: CBC with Diff rn 03/24 18:18 Order name: CMP; Complete Time: 19:05 rn 03/24 18:18 Order name: Lactate w/ 2H reflex if indic.; Complete Time: 19:27 rn 03/24 18:18 Order name: Protime (+inr); Complete Time: 19:27 rn 03/24 18:18 Order name: Ptt, Activated; Complete Time: 19:27 rn 03/24 18:18 Order name: Urinalysis w/ reflexes; Complete Time: 19:27 rn 03/24 18:18 Order name: SARS RAPID; Complete Time: 19:27 rn 03/24 18:21 Order name: BNP; Complete Time: 19:27 rn 03/24 18:21 Order name: Troponin High Sensitivity; Complete Time: 19:27 rn 03/24 18:26 Order name: Glucose, Ancillary Testing; Complete Time: 19:05 EDPA 03/24 19:28 Order name: Urine Culture EDMS 03/24 21:07 Order name: Ghost Lactate-NO COLLECT Timer EDMS 03/24 21:10 Order name: Manual Differential EDMS 03/24 22:13 Order name: Lactate Sepsis 2 HR Follow-up EDMS 03/25 03:30 Order name: Lactate w/ 2H reflex if indic. cp4 03/25 04:12 Order name: Lactate w/ 2H reflex if indic. EDMS 03/25 06:05 Order name: CBC with Automated Diff EDMS 03/25 06:15 Order name: Basic Metabolic Panel EDMS 03/25 06:26 Order name: Lactate w/ 2H reflex if indic. EDMS 03/25 07:46 Order name: Manual Differential EDMS 03/25 08:25 Order name: Ghost Lactate-NO COLLECT Timer EDMS 03/25 09:41 Order name: Lactate Sepsis 2 HR Follow-up EDPA 03/25 10:48 Order name: Troponin High Sensitivity EDPA 03/24 18:18 Order name: Chest Single View XRAY; Complete Time: 20:26 rn 03/24 18:18 Order name: CT Head Brain wo Cont; Complete Time: 20:21 rn 03/24 19:31 Order name: Chest Abd Pelvis Wo Con; Complete Time: 20:26 EDPA 03/24 18:18 Order name: Accucheck; Complete Time: 18:41 rn 03/24 18:18 Order name: Cardiac monitoring; Complete Time: 18:41 rn 03/24 18:18 Order name: EKG - Nurse/Tech; Complete Time: 18:41 rn 03/24 18:18 Order name: IV Saline Lock - Large Bore; Complete Time: 18:41 rn 03/24 18:18 Order name: Labs collected and sent; Complete Time: 18:41 rn 03/24 18:18 Order name: O2 Per Protocol; Complete Time: 18:41 rn 03/24 18:18 Order name: O2 Sat Monitoring; Complete Time: 18:41 rn 03/24 18:18 Order name: Vital Signs; Complete Time: 18:41 rn EC:10 Rate is 100 beats/min. Rhythm is regular. QRS [place] is Normal. HI interval is normal. rn QRS interval is prolonged at 122 msec. QT interval is normal. No Q waves. T waves are Normal. No ST changes noted. Clinical impression: NSR w/ Non-specific ST/T Changes. Interpreted by me. Reviewed by me. Administered Medications: 18:46 Not Given (Duplicate Order): ns 0.9% 1000 ml IV at 1000 ml once rn 18:56 Drug: NS 0.9% IV (30 ml/kg) 30 ml/kg IV at bolus once; Sepsis Protocol Route: IV; Rate: hb bolus; Site: left antecubital; 03/25 13:23 Follow up: IV Status: Completed infusion; IV Intake: 2000ml bp 03/24 19:20 Drug: Cefepime IVPB 1 grams IVPB at 200 ml/hr once over 30 mins; (mix in NS 100 mL) cp4 Route: IVPB; Rate: 200 ml/hr; Infused Over: 30 mins; Site: right antecubital; 03/25 13:23 Follow up: IV Status: Completed infusion; IV Intake: 100ml bp 08/01 19:38 Drug: Norepinephrine IV 0.1 mcg/kg/min IV at calculated rate See Administration cp4 Instructions; (Standard concentration 4 mg / 250 mL D5W); Recommended max rate 3 mcg/kg/min; Titrate 0.05 mcg/kg/min as often as every 5 minutes to achieve goal (see titration policy); Goal parameter MAP greater than 65 mmHg. Route: IV; Rate: calculated rate; Site: right femoral; 03/25 13:23 Follow up: IV Status: Infusion continued upon admission bp 03/24 19:46 Drug: Acetaminophen HI Suppository 650 mg HI once Route: HI; cp4 03/25 13:23 Follow up: Response: No adverse reaction bp Disposition: 03/24 20:05 Critical Care:. rn Disposition Summary: 03/24/24 20:06 Hospitalization Ordered Notes: Hospitalization Status: Inpatient Admission rn Provider: Jaclyn Durán rn Condition: Stable rn Problem: new rn Symptoms: have improved rn Bed/Room Type: Standard rn Location: Intensive Care Unit(03/25/24 12:35) [facility] Room Assignment: 1-(03/25/24 12:35) [facility] Diagnosis - Severe sepsis with septic shock rn - Altered mental status, unspecified rn - Hypotension, unspecified rn Forms: - Medication Reconciliation Form rn - SBAR form rn - Leadership Thank You Letter rn surgical time excluding procedures: 20:05 Critical care time: Bedside Care: 35 minutes. Total time: 35 minutes rn Signatures: Dispatcher [employer] EDVlad Barnes MD MD rn Garcia, Cindy, RN Jael Combs RN JACOBO Wilner Paz RN RN ja1 Esme Harkins cp4 Anson Vargas RN RN tl4 Deniz Gonzales RN bp Corrections: (The following items were deleted from the chart) 18:18 18:18 BLOOD CULTURE*+BA.LAB.BRZ ordered. EDMS EDMS 18:18 18:18 CBC+H.LAB.BRZ ordered. EDMS EDMS 18:18 18:18 COMPREHENSIVE METABOLIC PANEL+C.LAB.BRZ ordered. EDMS EDMS 18:18 18:18 LACTATE+C.LAB.BRZ ordered. EDMS EDMS 18:18 18:18 PROTIME (+INR)+COAG.LAB.BRZ ordered. EDMS EDMS 18:18 18:18 PTT, ACTIVATED+COAG.LAB.BRZ ordered. EDMS EDMS 18:18 18:18 Urinalysis+U.LAB.BRZ ordered. EDMS EDMS 18:18 18:18 SARS-COV-2 Antigen Rapid+I.LAB.BRZ ordered. EDMS EDMS 18:18 18:18 Chest Single View+RAD.RAD.BRZ ordered. EDMS EDMS 18:19 18:19 Head Brain Wo Cont+CT.RAD.BRZ ordered. EDMS EDMS 18:22 18:22 PROBNP+C.LAB.BRZ ordered. EDMS EDMS 18:22 18:22 Troponin High Sensitivity+C.LAB.BRZ ordered. EDMS EDMS 20:30 20:06 Telemetry/MedSurg (Inpatient) rn rn 20:30 20:06 rn rn 21:26 20:30 Intensive Care Unit rn jarrod 21:26 20:30 jacobo garay 03/25 12:35 03/24 21:26 [facility] ER [facility] [place] ja1 03/25 12:35 03/24 21:26 [facility]- ja1
--- NOTE | 2024-03-24 20:06 | ER ---
Nurse's Notes [facility] Name: Prete Rios Age: 83 yrs Sex: Male : 1940 Arrival Date: 03/24/2024 Time: 18:09 Bed 7 Private MD: Diagnosis: Severe sepsis with septic shock;Altered mental status, unspecified;Hypotension, unspecified Presentation: 03/24 18:20 Chief complaint: Patient's son or daughter states: Daughter states pt fell asleep in tl4 vehicle after his routine doctor appt. Daughter states pt fell asleep at approx 1515, they have been trying to wake him up for the past hour. Daughter states pt had no complaints or symptoms prior to this event. Coronavirus screen: At this time, the client does not indicate any symptoms associated with coronavirus-19. Ebola Screen: No symptoms or risks identified at this time. Initial Sepsis Screen: Does the patient meet any 2 criteria? RR > 20 per min. HR > 90 bpm. Yes Does the patient have a suspected source of infection? No. Patient's initial sepsis screen is negative. Risk Assessment: Do you want to hurt yourself or someone else? Patient reports no desire to harm self or others. Onset of symptoms was March 24, 2024 at 15:15. 18:20 Method Of Arrival: Stretcher tl4 18:20 Acuity: YULI 2 tl4 Triage Assessment: 18:23 General: Appears in no apparent distress. Behavior is unresponsive. Pain: Unable to use tl4 pain scale. Patient is unresponsive. EENT: No signs and/or symptoms were reported regarding the EENT system. Neuro: Level of Consciousness is unresponsive. Cardiovascular: Capillary refill < 3 seconds Patient's skin is warm and dry. Respiratory: Airway is patent. GI: No signs and/or symptoms were reported involving the gastrointestinal system. : No signs and/or symptoms were reported regarding the genitourinary system. Derm: No signs and/or symptoms reported regarding the dermatologic system. Musculoskeletal: No signs and/or symptoms reported regarding the musculoskeletal system. Historical: - Allergies: 18:23 No Known Allergies; tl4 - Immunization history:: Adult Immunizations unknown. - Infectious Disease History:: Denies. - Social history:: Smoking status: Patient/guardian denies using tobacco, but has a distant history of tobacco abuse. - Family history:: not pertinent. - Hospitalizations: : No recent hospitalization is reported. Screenin:38 [facility] ED Fall Risk Assessment (Adult) History of falling in the last 3 months, hb including since admission No falls in past 3 months (0 pts) Confusion or Disorientation Yes (5 pts) Intoxicated or Sedated Yes (3 pts) Impaired Gait Yes (1 pt) Mobility Assist Device Used No (0 pt) Altered Elimination Yes (1 pt) Score/Fall Risk Level 3 or more points = High Risk Oriented to surroundings, Maintained a safe environment, Educated pt \T\ family on fall prevention, incl call for assistance when getting out of bed, Assessed \T\ reinforced patient's understanding of fall precautions, Hourly rounding (assess needs \T\ fall precautionary measures) done. Abuse screen: unable to assess, no s/s abuse. Nutritional screening: No deficits noted. Tuberculosis screening: unable to assess. Assessment: 18:38 General: Appears in no apparent distress. ill, Behavior is minimally responsive. Neuro: hb Level of Consciousness is obtunded, Oriented to none. Cardiovascular: Patient's skin is warm and dry. Rhythm is regular. Respiratory: Airway is patent Respiratory effort is unlabored, Respiratory pattern is tachypnea. GI: No signs and/or symptoms were reported involving the gastrointestinal system. : blood around urinary meatus. EENT: No signs and/or symptoms were reported regarding the EENT system. Derm: Skin is clammy, Skin is pale, Skin temperature is warm. Musculoskeletal: No signs and/or symptoms reported regarding the musculoskeletal system. 18:55 Reassessment: Dr. Gregory at bedside for CVC placement. hb 20:00 Reassessment: No changes from previously documented assessment. Patient and/or family cp4 updated on plan of care and expected duration. Pain level reassessed. Patient is alert, oriented x 3, equal unlabored respirations, skin warm/dry/pink. 21:00 Reassessment: No changes from previously documented assessment. Patient and/or family cp4 updated on plan of care and expected duration. Pain level reassessed. Patient is alert, oriented x 3, equal unlabored respirations, skin warm/dry/pink. Vital Signs: 18:20 BP 82 / 47; Pulse 100; Resp 32; Temp 103.2(R); Pulse Ox 88% on R/A; Weight 81.74 kg; hb Height 5 ft. 9 in. ; 18:38 BP 78 / 44; Pulse 87; Resp 24; Pulse Ox 100% on Non-rebreather mask; hb 19:00 BP 93 / 49; Pulse 73; Resp 19; Pulse Ox 100% on 15 lpm Non-rebreather mask; cp4 19:15 BP 95 / 43; Pulse 69; Resp 19; Pulse Ox 100% on 15 lpm Non-rebreather mask; cp4 19:30 BP 93 / 46; Pulse 71; Resp 19; Pulse Ox 100% on 15 lpm Non-rebreather mask; cp4 19:31 BP 95 / 43; rn 19:45 BP 110 / 47; Pulse 75; Resp 17; Pulse Ox 100% on 15 lpm Non-rebreather mask; cp4 20:00 BP 93 / 51; Pulse 68; Resp 18; Pulse Ox 100% on 15 lpm Non-rebreather mask; cp4 20:15 BP 89 / 45; Pulse 65; Resp 17; Pulse Ox 100% on 15 lpm Non-rebreather mask; cp4 20:30 BP 103 / 41; Pulse 71; Resp 18; Pulse Ox 100% on 15 lpm Non-rebreather mask; cp4 20:45 BP 94 / 50; Pulse 68; Resp 18; Pulse Ox 100% on 15 lpm Non-rebreather mask; cp4 21:00 BP 95 / 50; Pulse 68; Resp 18; Pulse Ox 100% on 2 lpm NC; cp4 21:15 BP 97 / 60; Pulse 68; Resp 18; Pulse Ox 100% on 2 lpm NC; cp4 21:30 BP 102 / 49; Pulse 69; Resp 18; Pulse Ox 100% on 2 lpm NC; cp4 18:20 Body Mass Index 26.61 (81.74 kg, 175.26 cm) hb ED Course: 18:11 Patient arrived in ED. ra3 18:17 Vlad Gregory MD is Attending Physician. rn 18:22 Missed attempt(s): 18 gauge in left forearm. Bleeding controlled, band aid applied, hb catheter tip intact. 18:23 Triage completed. tl4 18:24 Arm band placed on left wrist. tl4 18:25 Inserted saline lock: 18 gauge in right antecubital area, using aseptic technique. hb Flushed with 10 mL NS. 18:26 Oxygen administration via non-rebreather mask \T\ 15L/min. tl4 18:26 Inserted saline lock: 18 gauge in left antecubital area, using aseptic technique. Blood hb collected. Flushed with 10 mL NS. 18:38 Patient has correct armband on for positive identification. Placed in gown. Bed in low hb position. Call light in reach. Side rails up X2. Client placed on continuous cardiac and pulse oximetry monitoring. NIBP monitoring applied. panel monitor on. Pulse ox on. NIBP on. 19:05 Inserted. hb 19:06 Assisted provider with central line placement. Set up central line tray. Triple lumen hb line placed in right femoral. Line placed by Vlad Gregory MD Placement verified by blood return, Dressed with Tegaderm, Patient tolerated well. Time-out/Briefing performed prior to start of procedure? Yes. Was handwashing/sanitizing done immediately prior to procedure? Yes. Was patient positioned to in a way to prevent air embolism? Yes. Was procedure site sterilized? Yes, with chlorhexidine. Was the site allowed to dry? Yes. Was local anesthetic and/or sedation utilized? No. During the procedure, did the Practitioner(s) maintain a sterile field? Yes. Were unused ports clamped during insertion? Yes. Was blood aspirated from each lumen? Yes. After the procedure, did the Practitioner(s) clean the site and apply a sterile dressing? Yes. 19:14 Notified ED physician of a critical lab result(s). Troponin 528.8. ld1 19:19 Esme Harkins is Primary Nurse. cp4 19:57 Chest Single View XRAY In Process Unspecified. EDMS 20:01 CT Head Brain wo Cont In Process Unspecified. EDMS 20:01 Chest Abd Pelvis Wo Con In Process Unspecified. EDMS 20:05 Jaclyn Durán MD is Hospitalizing Provider. rn 23:18 Provided Education on: admission. cp4 23:18 Patient admitted, IV remains in place. cp4 03/25 06:13 One-on-one care X 60 minutes. cp4 Administered Medications: 03/24 18:46 Not Given (Duplicate Order): ns 0.9% 1000 ml IV at 1000 ml once rn 18:56 Drug: NS 0.9% IV (30 ml/kg) 30 ml/kg IV at bolus once; Sepsis Protocol Route: IV; Rate: hb bolus; Site: left antecubital; 03/25 13:23 Follow up: IV Status: Completed infusion; IV Intake: 2000ml bp 03/24 19:20 Drug: Cefepime IVPB 1 grams IVPB at 200 ml/hr once over 30 mins; (mix in NS 100 mL) cp4 Route: IVPB; Rate: 200 ml/hr; Infused Over: 30 mins; Site: right antecubital; 03/25 13:23 Follow up: IV Status: Completed infusion; IV Intake: 100ml bp 03/24 19:38 Drug: Norepinephrine IV 0.1 mcg/kg/min IV at calculated rate See Administration cp4 Instructions; (Standard concentration 4 mg / 250 mL D5W); Recommended max rate 3 mcg/kg/min; Titrate 0.05 mcg/kg/min as often as every 5 minutes to achieve goal (see titration policy); Goal parameter MAP greater than 65 mmHg. Route: IV; Rate: calculated rate; Site: right femoral; 03/25 13:23 Follow up: IV Status: Infusion continued upon admission bp 03/24 19:46 Drug: Acetaminophen NH Suppository 650 mg NH once Route: NH; cp4 03/25 13:23 Follow up: Response: No adverse reaction bp Medication: 03/24 21:39 VIS not applicable for this client. cp4 Intake: 03/25 13:23 IV: 100ml; Total: 100ml. bp 13:23 IV: 2000ml; Total: 2100ml. bp Outcome: 03/24 20:06 Decision to Hospitalize by Provider. rn 21:39 Admitted to ER Hold. Please see [facility] for further documentation. cp4 21:39 Condition: stable cp4 21:39 Instructed on the need for admit, 03/25 14:32 Patient left the ED. bp Signatures: Dispatcher [employer] EDMS Vlda Gregory MD MD rn Baxter, Heather RN Deniz Herrmann RN RN bp Sims, Lauren, RN RN [email or web address] Esme Harkins cp4 Anson Vargas RN RN tl4 Jackelin Vance ra3 Corrections: (The following items were deleted from the chart) 03/24 18:26 18:20 BP 82 / 47; Pulse 100bpm; Resp 32bpm; Pulse Ox 88% RA; 81.74 kg; Height 5 ft. 9 tl4 in.; BMI: 26.6; tl4 18:36 18:20 BP 82 / 47; Pulse 100bpm; Resp 32bpm; Pulse Ox 88% RA; Temp 97.4F Temporal; 81.74 hb kg; Height 5 ft. 9 in.; BMI: 26.6; tl4
--- NOTE | 2024-03-24 20:08 | RAD REPORT ---
EXAM DESCRIPTION: CT - Head Brain Wo Cont - 03/24/2024 7:59 pm CLINICAL HISTORY: Alteration of awareness/confusion COMPARISON: October 2023 TECHNIQUE: Computed axial tomography of the head was obtained. IV contrast was not requested. All CT scans are performed using dose optimization technique as appropriate and may include automated exposure control or mA/KV adjustment according to patient size. FINDINGS: An intracranial bleed is not seen The ventricles are normal in caliber No extra-axial fluid collection is noted. Moderate low-density areas within periventricular, deep and subcortical white matter likely represent ischemic changes secondary to small vessel disease. Fluid within the sinuses/ mastoids is not seen. IMPRESSION: No acute intracranial abnormality is seen If patient's symptoms persist MRI of the brain would be recommended
--- NOTE | 2024-03-24 20:25 | RAD REPORT ---
EXAM DESCRIPTION: CT - Chest Abd Pelvis Wo Con - 03/24/2024 7:59 pm CLINICAL HISTORY: Chest and abdominal pain. Elevated liver enzymes COMPARISON: 2022 TECHNIQUE: Computed axial tomography of the chest, abdomen and pelvis was obtained. Oral contrast wa s given. IV contrast was not requested. All CT scans are performed using dose optimization technique as appropriate and may include automated exposure control or mA/KV adjustment according to patient size. FINDINGS: The evaluation of mediastinum, patrick, vessels and solid organs is limited secondary to the lack of IV contrast administration Moderate bilateral interstitial lung opacities. No significant mediastinal or hilar lymphadenopathy is seen. Coronary arterial calcifications A pleural effusion is not present. A pericardial effusion is not seen. The liver, spleen, pancreas, and adrenals appear grossly normal Bilateral renal cysts. Largest right kidney 10 centimeters There is no evidence of diverticulitis. Casanova catheter within the bladder Cholecystectomy Zisr-hq-essuaqxd chronic compression deformity L1 vertebral IMPRESSION: Moderate bilateral interstitial lung opacities likely pulmonary fibrosis No acute abnormality involving the abdomen/pelvis is seen
--- NOTE | 2024-03-24 20:25 | RAD REPORT ---
EXAM DESCRIPTION: Jus Single View03/24/2024 7:55 pm CLINICAL HISTORY: Chest pain COMPARISON: 2022 FINDINGS: Moderate bilateral interstitial lung opacities unchanged probably pulmonary fibrosis Lungs probably are clear of acute infiltrate Heart is mildly to moderately enlarged
[2024-03-24 21:09] LABS: Band Neutrophils 24 % (0-1); Blood Morphology Comment NOT SEEN (NOT SEEN); Differential Total Cells Count 100; Lymphocytes 2 % (15-42); Monocytes 1 % (0-10); Platelet Estimate ADEQ; Platelets Clumped FEW; Segmented Neutrophils 73 % (40-80)
[2024-03-24] MEDS: ENOXAPARIN 80 MG/0.8 ML SQ ONE (22:04)
[2024-03-24] MEDS ORDERED: ENOXAPARIN 80 MG/0.8 ML SQ ONE (22:14)
[2024-03-24] MEDS: VANCOMYCIN 1 GM in NA CHLORIDE 0.9% 250 ML IVPB SCH (22:19)
[2024-03-24] MEDS: D5 0.45 NS 1,000 ML IV SCH (22:19)
[2024-03-24] MEDS: CEFEPIME 1 GM in NA CHLORIDE 0.9% 100 ML IV SCH (22:19)
[2024-03-24] MEDS ORDERED: ONDANSETRON 4 MG/2 ML VIAL IV PRN (22:19)
[2024-03-24] MEDS ORDERED: VANCOMYCIN 1 GM/VIAL ONE ×2 (22:28→22:35)
[2024-03-24] MEDS ORDERED: NA CHLORIDE 0.9% 0 ML ONE (22:29)
[2024-03-24] MEDS ORDERED: D5 0.45 NS 1,000 ML IV ONE (22:35)
[2024-03-24] MEDS: VANCOMYCIN 2 GM in NA CHLORIDE 0.9% 500 ML IVPB ONE (22:47)
[2024-03-24 23:47] VITALS: BMI 25.8
[2024-03-25 05:54] LABS: Absolute Lymphocytes (CBC) 0.6 K/uL (0.7-4.9); Absolute Monocytes 1.1 K/uL (0.1-1.3); Absolute Neutrophil 29.5 K/uL (1.8-8.0); Basophils % 0.1 % (0-1.3); Hematocrit 36.7 % (39.6-49.0); Hemoglobin 12.1 g/dL (13.6-17.9); Lymphocytes % 1.9 % (15.3-44.8); MCH 29.5 pg (27.0-35.0); MCV 89.3 fL (80-100); MPV 7.6 fL (7.6-11.3); Monocytes % 3.6 % (3.3-12.3); Neutrophils % 94.4 % (41.7-73.7); Platelets 215 thou/uL (152-406); RBC Red Blood Cell Count 4.11 M/uL (4.33-5.43); Red Cell Distribution Width 14.7 % (12.1-15.2)
[2024-03-25 06:08] LABS: Anion Gap 10.3 mEq/L (5.0-15.0); Potassium 3.3 mEq/L (3.5-5.1)
[2024-03-25] MEDS ORDERED: D5 0.45 NS 1,000 ML IV ONE (07:33)
[2024-03-25 07:46] LABS: Band Neutrophils 26 % (0-1); Blood Morphology Comment NOT SEEN (NOT SEEN); Differential Total Cells Count 100; Dohle Bodies PRESENT; Lymphocytes 5 % (15-42); Metamyelocytes 1 % (0-0); Monocytes 1 % (0-10); Platelet Estimate ADEQ; Segmented Neutrophils 67 % (40-80)
[2024-03-25] MEDS ORDERED: ALBUMIN HUMAN 25% 100 ML IV ONE (09:55)
[2024-03-25] MEDS: VANCOMYCIN 1.5 GM in NA CHLORIDE 0.9% 500 ML IVPB SCH (10:00)
[2024-03-25] MEDS: NA CHLORIDE 0.9% 1,000 ML IV SCH (10:00)
[2024-03-25] MEDS: ALBUMIN HUMAN 25% 100 ML IV ONE (10:10)
[2024-03-25] MEDS: ASPIRIN EC 81 MG TAB PO ONE (11:00)
[2024-03-25] MEDS: FAMOTIDINE 20 MG/2 ML VIAL IV SCH (11:00)
--- NOTE | 2024-03-25 11:16 | PN ---
Date of Progress Note: 03/25/2024 Subjective: The patient was seen this morning for followup. He was still in the emergency room as [facility] do not have any ICU beds available. The patient remains on vasopressor, maintaining systolic blood pressure around 105 to 106 range. When I saw him this morning, oxygenation is normal, 100% oxygen o n 2 L nasal cannula oxygen. His last temperature was 97.6. The patient is awake, alert, back to his baseline. As far as mental status is concerned, significant improvement compared to last night. No t using any accessory muscles of respiration. Family members were at bedside. He denies any complai nts this morning. Objective: Vital Signs: Reviewed. HEENT: Unremarkable. Lungs: Clear to auscultation. Heart: Sounds normal. Abdomen: Soft. Bowel sounds normal. No guarding, rigidity, tenderness, distention. Extremities: No leg edema. Laboratory Data: White count 31.2, hemoglobin 12.1, platelets 215. Sodium 139, potassium 3.3, chlor sergo 108, bicarb 24, BUN 28, creatinine 2.04, glucose 132, lactic acid 4.5. Troponin 5185.9. Blood c ulture pending. Urine culture is growing gram-negative rods, definite identification and sensitivity result pending. Impression: 1.Septic shock. 2.Urinary tract infection. 3.Acute kidney injury. 4.Oliguria. 5.Non-STEMI. 6.Coronary artery disease. 7.Hypokalemia. 8.Senile dementia. Plan: We will go ahead and continue current empiric antibiotics while waiting on the culture results . Once culture result is available, then we will consider changing antibiotics accordingly. We will continue IV fluid. Continue vasopressor medication. He was on Levophed overnight and we will honorio nue that. As his blood pressure allows, we will try to wean off Levophed if possible. One dose of a lbumin was ordered this morning. GI prophylaxis will be given using famotidine per order. For his n on-STEMI last night, I ordered 1 dose of Lovenox 80 mg subcutaneous injection and we will also contin ue that on a daily basis starting tonight as a second dose. We will start aspirin 81 mg daily by tesfaye th as of today since he is able to now swallow. Diet was ordered. The patient and family were advis ed that he should eat by sitting upright in the bed and not while lying down. We will continue his m emantine that he takes at home for his dementia and also Seroquel 25 mg at bedtime. Echocardiogram w as ordered which will be done today we will follow up on that. We will go ahead and now discontinue his vancomycin, but continue cefepime per order. We will repeat blood work tomorrow and start him on high dose statin therapy with atorvastatin 40 mg daily at bedtime. JOSETTE/MODL Voice ID: [id number] Report ID: [id number]
[2024-03-25] MEDS ORDERED: FAMOTIDINE 20 MG/2 ML VIAL IV ONE (11:40)
[2024-03-25] MEDS ORDERED: ASPIRIN EC 81 MG TAB PO ONE (11:40)
[2024-03-25] MEDS ORDERED: NA CHLORIDE 0.9% 1,000 ML ONE (11:40)
--- NOTE | 2024-03-25 13:31 | EKG ---
Test Date: 2024-03-24 Test Time: 18:18:12 Shooting Gallery Operator: CAROL MEASUREMENT RESULTS: Intervals: Rate: 100 NC: 190 QRSD: 122 QT: 384 QTc: 495 Dulce: P: 61 NC: 190 QRS: -4 T: -9 INTERPRETIVE STATEMENTS: Normal sinus rhythm Right bundle branch block Inferior infarct, age undetermined Abnormal ECG Compared to ECG 11/14/2023 16:51:43 Right bundle-branch block now present Ventricular premature complex(es) no longer present Myocardial infarct finding still present Electronically Signed On 03-25-24 13:29:01 CDT by Jesus Plascencia
--- NOTE | 2024-03-25 13:48 | ECHO ---
HEIGHT: 5 ft 10 in WEIGHT: 180 lb 0 oz DATE OF STUDY: 03/25/[address]: Wilfred Durán MD 2-DIMENSIONAL: YES M.MODE: YES DOPPLER: YES COLOR FLOW: YES TDS: PORTABLE: YES DEFINITY: BUBBLE STUDY: DIAGNOSIS: NSTEMI CARDIAC HISTORY: CATHERIZATION: SURGERY: PROSTHETIC VALVE: PACEMAKER: MEASUREMENTS (cm) DIASTOLIC (NORMALS) SYSTOLIC (NORMALS) IVSd 1.0 (0.6-1.2) LA Diam 3.7 (1.9-4.0) LVEF 50-55% LVIDd 3.7 (3.5-5.7) LVIDs 2.8 (2.0-3.5) %FS 25% LVPWd 1.2 (0.6-1.2) Ao Diam 3.3 (2.0-3.7) 2 DIMENSIONAL ASSESSMENT: RIGHT ATRIUM: NORMAL LEFT ATRIUM: NORMAL RIGHT VENTRICLE: NORMAL LEFT VENTRICLE: NORMAL TRICUSPID VALVE: MILD TRICUSPID REGURGITATION MITRAL VALVE: 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 NORMAL LEFT VENTRICULAR EJECTION FRACTION 55-55% WITH NORMAL WALL MOTION 2. DIASTOLIC DYSFUNCTION 3. 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 MODERATE AORTIC INSUFFICIENCY TECHNOLOGIST: LOUISA ALFARO
[2024-03-25] MEDS: ENSURE CLEAR 200 ML CAN PO SCH (14:00)
--- NOTE | 2024-03-25 19:37 | HP ---
Date of Admission: 03/24/2024 Chief Complaint: Unresponsive, non-STEMI. History Of Present Illness: This is an 83-year-old very pleasant male patient, who has significant d ementia problem, lives at home with his , was brought into office yesterday by his daughter for h is regular followup visit. At office, the patient did not have any specific complaints except he was just feeling cold and had his jacket on. Hemodynamically, he was stable with blood pressure 142/82, pulse 84, temperature was 98.9, and the patient did not report any specific other complaints and his mental status was like his normal self at baseline with underlying dementia, but he was awake, alert , and no change in any of his baseline mental status noted at that time. After office visit, his neyda pacheco took him home and daughter says that once he sat in the car by the time she made it to his [facility] e, he was sleeping in the car and once she reached to his home, she had hard time waking him up. So, daughter thought that he was sleeping, and she decided to stay with him in the car and kept the car running with air condition on and she actually waited for about 1 hour like this, and the patient con tinued to sleep and after 1 hour of waiting, she decided to try to wake him up and he still will not wake up. So, another family member came by and she could not wake him up either, so at that time, zackery batres decided to bring him to emergency room as they were concerned about the patient not waking up. Upon arrival to emergency room, the patient's blood pressure was 82/47, temperature was 103.2, and he was hypoxic with oxygen saturation 88% on room air. ER physician contacted me immediately and I d iscussed with him all the details and I was concerned about sepsis and not as much concern regarding stroke and this was even before the vital signs were available, so [facility] and the patient was admitted to hospital and after all the test results came back, details were discussed with ER physician again and I came out to see the patient. The patient's daughter wa s with him at bedside who provided me all these details as well. Allergies: NO KNOWN ALLERGIES. Medications: Memantine 5 mg 2 times a day, metoprolol succinate 25 mg daily in morning, Seroquel 25 mg daily at bedtime. Review of Systems: Constitutional: As mentioned above. DEAN OF GIRLS: Has impaired memory due to underlying dementia problem. Genitourinary: When I saw the patient in the emergency room, daughter reported that the patient was complaining of burning on urination and some blood in urine that he complained about today to the [facility] tara prior to the office visit, but he told daughter not to tell me anything, so I did not have that information up until when I was talking to daughter in the emergency room, she gave me that informat ion. All other systems reviewed and negative. Past Medical History: Significant for hypertension, hyperlipidemia, diverticulosis, renal cyst, inso mnia, senile dementia, and pulmonary fibrosis. Past Surgical History: Tonsillectomy, cholecystectomy on February 20, 2023, appendectomy, right wrist/elizabeth nd surgery. Family History: Father , had Parkinson's disease. Mother , had lung cancer. Brother , had ALS. Social History: Prior history of smoking, not at present time. Use of alcohol, negative. Physical Examination: Vital Signs: When the patient came into emergency room, initial blood pressure was 82/47, pulse 100, respiratory rate 32, temperature 103.2, oxygen saturation 88%. Weight 81.74 kg, height 5 feet 9 inc hes. General: The patient is lying in bed, unresponsive to any verbal commands, but responds to painful s timuli and some spontaneous movement of head and neck was noted. The patient not using any accessory muscles of respiration. HEENT: Head atraumatic, normocephalic. Conjunctivae nonerythematous. Sclerae white. Mouth, no thr ush or edema noted. Ears/Nose, no mass, lesion, discharge noted. Neck: Supple. No JVD, lymph nodes, bruit, thyromegaly noted. Lungs: Bilateral good equal air entry. Clear to auscultation. No rhonchi. No rales. Heart: Normal heart sounds, no murmur or gallop. Abdomen: Soft, bowel sounds normal. No guarding, rigidity, tenderness, mass, hepatosplenomegaly, dis tention, or bruit noted. Extremities: No leg edema. No calf tenderness. Skin: No rash, ulcer, cellulitis. Lymphatics: No lymph node enlargement in neck, supraclavicular, infraclavicular region. Neuro: No focal neurological deficit. Chest: Unremarkable. External Genitalia: Deferred. Rectal: Deferred. Laboratory Data: CAT scan of the head was negative for any acute intracranial changes. Chest x-ray showed evidence of bilateral interstitial lung opacities and CAT scan of the chest, abdomen, and pelv is did not show any acute findings. Coronary artery calcification was noted. No evidence of any pne umonia. Bilateral interstitial lung opacities present. Bilateral renal cysts noted, largest one is on the right kidney, about 10 cm size. Urinalysis shows 3+ blood, leukocyte esterase 250, rbc more t luke 50, wbc 20 to 50, bacteria less than 20. COVID-19 test negative. Sodium 137, potassium 3.5, chl oride 106, bicarb 23, BUN 29, creatinine 1.74, glucose 124, lactic acid 3.7, total bilirubin 1.2, AST 303, ALT 87, alkaline phosphatase 138. Troponin 528.8. ProBNP 3903. White count 13, hemoglobin 13 .7, platelets 215. Impression: 1.Septic shock. 2.Acute kidney injury. 3.Volume depletion. 4.Urinary tract infection. 5.Senile dementia. 6.Hypertension. 7.Hyperlipidemia. 8.Diverticulosis. 9.Coronary artery disease. 10.Renal cyst. 11.Insomnia. Plan: We will go ahead and admit the patient to hospital for further evaluation and management of th is problem. The patient is appropriate for inpatient and is expected to spend 2 midnights in [facility]. For his septic shock, likely source is urinary tract infection on basis of available test result information and history. We do not have any other source of infection at this time. Empiric antibio tics will be started per order which is cefepime and vancomycin and once we have culture results avai lable, then we will go ahead and consider to change antibiotics accordingly. Blood culture and urine culture were sent. We will follow up on those results. IV fluid was given in emergency room as per sepsis protocol and oxygen was started. The patient is maintaining adequate amount of oxygenation o n supplemental oxygen and the patient was still hypotensive after adequate amount of IV fluids, so va sopressor will be started as well. Casanova catheter was placed. We will monitor intake and output for him. Tomorrow morning, we will repeat blood work. Volume depletion will be managed with IV fluid a nd monitoring of his electrolytes and renal function as well as urine output. For abnormal liver fun ction tests that we have noted, this is probably very likely due to underlying septic shock and no ne ed for any further intervention except monitoring. For his non-STEMI, which is likely due to some un derlying coronary artery disease in presence of septic shock, we are probably seeing elevated troponi n levels. He did not have any obvious complaints of chest pain and we will go ahead and manage this with Lovenox injection per order as well as we will get echocardiogram done tomorrow. Hypertension w ill be monitored at appropriate time. We will consider to restart his metoprolol. For his senile de mentia, he takes memantine 5 mg 2 times a day and we will start that medication at appropriate time. For insomnia and his underlying senile dementia, he has used Seroquel 25 mg at bedtime and we will c ontinue that again at appropriate time once he is able to take oral medication. We will give him saad e GI prophylaxis to reduce chances of any GI bleeding and I did discuss with the patient's family mem elizabeth regarding code status and as per my discussion with family members, the patient will remain full code. Total time spent was 90 minutes that includes communication with emergency room physicians, re view of emergency room records, performing evaluation and management today, and review of prior hospi monisha record as well as office record. JOSETTE/CANELO Voice ID: [id number]
--- NOTE | 2024-03-25 19:52 | CON ---
Date of Consultation: 03/25/2024 Reason For Consultation: Elevated troponin. History Of Present Illness: This is an 83-year-old male, who has significant medical history of adva nced dementia apparently and presented to the emergency room because of change of mental status and w as not responsive, saw Dr. Durán in the office, he was agitated and having 103 to 104 fever with low b lood pressure, was sent to the emergency room, found to be in septic shock, started on IV antibiotics and Levophed and he weaned off Levophed and blood pressure stabilized. Initial troponin was in the 500s. Second was in the 5000. He denies having any chest pain. No known history of coronary artery disease. The patient is not able to give me a good history. Past Medical History: Advanced dementia. Medications: Refer reconciliation sheet for detailed list. Allergies: NO KNOWN DRUG ALLERGIES. Family History: No premature coronary artery disease or cancer. Social History: Does not smoke or drink. Does not use any drugs. Review of Systems: All systems reviewed, they were negative except as mentioned in HPI. Physical Examination: Vital Signs: Reviewed. Head and Neck: Pupils are equal, reactive to light. Intact eye movements. No JVD. No cervical lym phadenopathy. Neck: Supple. Thyroid is not enlarged. Lungs: Clear to auscultation bilaterally. No rhonchi, wheezing, or crackles. No accessory muscle u se. Heart: Regular rate and rhythm. No extra sounds. Abdomen: Soft, nontender. Bowel sounds positive. No organomegaly. No masses or hernia. No rigidi ty or rebound. Extremities: No edema, clubbing, or cyanosis. Intact pulses. Skin: No rash. No nodule. Neurologic: Alert, awake with confusion. No focal deficits appreciated. Investigations: His troponin 5181, BUN 28, creatinine 2.04, white blood cell count 31,000. Assessment/recommendation: 1.Elevated troponin. No active chest pain, but he is septic. He has septic shock, likely this is d emand ischemia; however, trend the troponin until it went down and obtain an echo. If his troponin g oes substantially higher, then we will plan for coronary angiogram. Otherwise, recommend baby aspiri n and we will plan for possible anticoagulation only if the troponin significantly increases and obta in echocardiogram to evaluate for wall motion abnormalities. 2.Septic shock, on wide-spectrum antibiotics and fluid management, status post Levophed and stabiliz ing. 3.Dyslipidemia. Continue Lipitor 40 mg q.h.s. 4.Acute renal failure due to the sepsis and this should improve with further hydration as his blood pressure now is getting stable. Discussed the case in details with Dr. Durán. /MODL Voice ID: [id number] Report ID: [id number]
[2024-03-25] MEDS: MEMANTINE HCL 10 MG TABLET PO SCH (20:29)
[2024-03-25] MEDS: ATORVASTATIN 40 MG TAB PO SCH (20:29)
[2024-03-25] MEDS: QUETIAPINE 25 MG TAB PO SCH (20:29)
[2024-03-25] MEDS: ENOXAPARIN 80 MG/0.8 ML SQ SCH (20:30)
--- NOTE | 2024-03-26 01:21 | CON ---
Date of Consultation: 03/25/2024 Chief Complaint: Acute kidney injury. History Of Present Illness: The patient was found to have elevated BUN and creatinine level and nephrology consultation is requested for acute kidney injury. The patient has underlying chronic kidney disease, stage 3A. He was found to have unresponsiveness and he was found to have kqb-GI-hzupzzzfq myocardial infarction. He was admitted to ICU for severe sepsis. Cardiology was consulted for elevated troponin and uti-XW-upynvjeam myocardial infarction. The patient is an 83-year-old man with significant dementia problem. He is at home with his . He was referred to the hospital after he was seen in the office for generalized weakness. The patient was complaining of feeling cold. The patient was hemodynamically stable. Blood pressure was 142/82, heart rate 84, temperature 98.9. The patient did not report specific complaints, although of note, the patient has underlying dementia, and he has history of significant memory problem. He was awake and alert. After visiting his office, his daughter took him home and the patient developed altered mental status. It was difficult to wake him up and daughter brought him to the emergency room. In the emergency room, blood pressure was 82/47, temperature was 103.2. The patient has hypoxemia. Oxygen saturation was 80 on room air. The patient cannot provide review of systems due to significant dementia. Medications: He takes metoprolol 25 mg daily, Seroquel 25 mg at bedtime, memantine 5 mg twice a day. Review of Systems: Unobtainable, although he mentioned about some urinary problems, had burning sensation and urination problem. According to the patient, apparently, he had hematuria, although during this evaluation in the hospital, hematuria was not present. The patient does not have history of kidney stone. Past Medical History: Significant for hypertension, hyperlipidemia, diverticulosis, kidney cyst, insomnia, senile dementia, pulmonary fibrosis. Past Surgical History: Tonsillectomy, cholecystectomy, appendectomy, right wrist hand surgery. Family History: Parkinson disease in his father. Mother , had lung cancer. Brother , had ALS. Social History: Prior history of tobacco. Denies alcohol. Physical Examination: General: The patient is awake, follows commands, although he is lethargic and confused. Eyes: Anicteric sclerae. EOMI. Ears, Nose, Mouth, and Throat: Oral mucosa moist. No pallor. Neck: Supple. No bruits. Lungs: Few crackles at bases. Heart: S1 and S2. Gastrointestinal: Abdomen is soft and benign. Extremities: No edema. Skin: No ulcer, no cellulitis. Neurologic: Moving extremities. Cranial nerves intact. Imaging: CT scan of the head was negative for any intracranial changes. Chest x-ray showed evidence of bilateral interstitial lung opacities and CAT scan of the chest, abdomen, and pelvis did not show acute findings. Coronary artery calcification was noted. No evidence of pneumonia. Bilateral interstitial opacities were present. Bilateral renal cysts noticed, the largest one in the kidney about 10 cm in size. Laboratory Data: Urinalysis showed 3+ blood, leukocyte esterase 250, RBCs more than 50, WBCs 20 to 50, bacteria less than 20. COVID-19 test was negative. Sodium 137, potassium 3.5, chloride 106, bicarbonate 23, BUN 29, creatinine 1.74, glucose 124, lactic acid 3.7, bilirubin 1.2, AST 303, ALT 87, AP 138. Troponin 528.8, proBNP 3903. White count 13,000, hemoglobin 13.7, and platelets 215. Impression And Plan: 1. Septic shock, acute kidney injury, altered mental status, dementia. The patient has urinary tract infection, hypertension, diverticulosis without diverticulitis, coronary artery disease, insomnia. The patient is admitted to ICU, IV fluids were started for acute kidney injury and is on supplemental oxygen for hypoxemic respiratory failure. Empiric antibiotics were started with cefepime and vancomycin and dose was adjusted for renal function. The patient has war-DP-uumsymbjw myocardial infarction and Cardiology consulted. 2. Acute kidney injury, due to severe prerenal azotemia and acute tubular necrosis with nonoliguric urine output, due to volume depletion and severe sepsis. Possible cardiorenal syndrome in setting of okl-BV-peukcwjqi myocardial infarction. Continue to monitor renal function. The patient has nonoliguric urine output. Electrolytes in acceptable ranges. The patient does not have hyperkalemia. The patient does not need dialysis at this point. The patient has normal urine output. The patient is undergoing cardiac workup towards cardiac echo and ejection fraction. 3. Sepsis. Continue antibiotics and dialysis suggested due to renal infection. EB/MODL Voice ID: [id number] Report ID: [id number] [facility]OSPITALEmily
[2024-03-26 05:25] LABS: Absolute Basophils 0.1 K/uL (0-0.5); Absolute Eosinophils 0.1 K/uL (0-0.5); Absolute Monocytes 0.8 K/uL (0.1-1.3); Absolute Neutrophil 12.9 K/uL (1.8-8.0); Basophils % 0.6 % (0-1.3); Eosinophils % 0.9 % (0-4.4); Hematocrit 30.7 % (39.6-49.0); Hemoglobin 10.5 g/dL (13.6-17.9); Lymphocytes % 6.9 % (15.3-44.8); MCH 29.9 pg (27.0-35.0); MCV 87.7 fL (80-100); MPV 7.8 fL (7.6-11.3); Monocytes % 5.4 % (3.3-12.3); Neutrophils % 86.2 % (41.7-73.7); Platelets 148 thou/uL (152-406); Red Cell Distribution Width 14.8 % (12.1-15.2)
[2024-03-26 05:59] LABS: Albumin 2.1 g/dL (3.4-5.0); Albumin/Globulin Ratio 0.7 (1.1-1.8); Anion Gap 7.2 mEq/L (5.0-15.0); Bilirubin Total 0.6 mg/dL (0.2-1.0); Globulin 3.2 g/dL (2.3-3.5); Magnesium 1.8 mg/dL (1.6-2.4); Phosphorus 2.1 mg/dL (2.5-4.9); Potassium 3.2 mEq/L (3.5-5.1); Protein, Total 5.3 g/dL (6.4-8.2)
[2024-03-26] MEDS: POTASSIUM CL SA 10 MEQ TAB PO ONE (06:19)
[2024-03-26] MEDS: MAGNESIUM SULFATE 1 gm IVPB 1 GM/100 ML BAG IV ONE (06:19)
[2024-03-26] MEDS: NA CHLORIDE 0.9% 1,000 ML IV SCH (09:15)
[2024-03-26] MEDS: ASPIRIN EC 81 MG TAB PO SCH (09:18)
--- NOTE | 2024-03-26 15:48 | PN ---
Date of Progress Note: 03/26/2024 Subjective: The patient was admitted to the hospital with septic shock/cardiogenic shock bacteremia secondary to urosepsis. The patient was started on antibiotic. Blood pressure stabilized. The patient had acute kidney injury secondary to poor perfusion, ATN, cardiorenal, and toxic ATN secondary to sepsis. The patient's kidney function has been improved. Physical Examination: Vital Signs: Blood pressure 122/67, pulse of 70, afebrile. Chest: Clear to auscultation. Heart: S1, S2. Regular. Abdomen: Soft, nontender. Extremities: No edema. Neuro: Alert. No focality. Pleasantly confused. Laboratory Data: WBC 14.9, hemoglobin 10.5. Sodium 139, potassium 3.2, bicarb 25, BUN 29, creatinine down to 1.3. GFR 54. Calcium 8.1. Phosphorus 2.1, magnesium 1.8. Troponin 3800, trending down. Albumin 2.1. Corrected calcium is 9.6. Current Medications: The patient is on include: 1. Aspirin. 2. Cefepime. 3. Vancomycin. 4. Lovenox. 5. Atorvastatin. 6. Namenda. 7. Pepcid. 8. IV fluid. 9. Magnesium sulfate. 10. KCl. Assessment And Plan: 1. Acute kidney injury secondary to poor perfusion acute tubular necrosis/toxic acute tubular necrosis/cardiorenal. On the recovery, nonoliguric. I am going to continue current hydration and we will continue to monitor the patient. 2. Polycystic kidney disease with urinary tract infection. The patient is started on cefepime. Consider to be switched to Kenalog on for better penetration during the presence of multiple cyst. We will follow up the patient. 3. Hypophosphatemia. We will supplement. 4. Hypokalemia, hypomagnesemia. We will supplement. 5. Urosepsis with renal cyst. We will consider switching to Levaquin if did not improve. 6. Shock multifactorial secondary to septic shock/cardiogenic shock complicated with acute kidney injury, target organ failure. On the recovery. We will follow up with primary. Time spent examining the patient [id number] reviewing data lab and the radiology placing orders discussing the case with the patient discussing the case with the steam station supervisor including hospitalist and nursing staff more than 55 minutes JOSE ARMANDO Voice ID: [id number] Report ID: [id number]
--- NOTE | 2024-03-26 17:01 | PN ---
Date of Progress Note: 03/26/2024 Subjective: The patient was seen this morning for followup. He was feeling a lot better, looking a lot better, sitting upright in bed. Family was with him at bedside. No new complaints or problems r eported by the patient and family members. He is eating well and tolerating diet well. Objective: Vital signs: Reviewed. Hemodynamically, patient is stable. HEENT: Unremarkable. Lungs: Clear to auscultation. Heart: Sounds normal. Abdomen: Soft. Bowel sounds normal. No guarding, rigidity, tenderness, distention. Extremities: No leg edema. Laboratory Data: White count 14.9, hemoglobin 10.5, platelets 148. Sodium 139, potassium 3.2, chlor sergo 110, bicarb 25, BUN 29, creatinine 1.30, glucose 70. Liver function tests improved today. Total bilirubin is 0.6, AST 67, ALT 44, alkaline phosphatase 64. Troponin is also lower today and it is 3 862. Highest troponin level yesterday was 5185. His LDL is 30. Urine culture grew E coli and it is sensitive to multiple antibiotics including cefepime that patient is currently on. Impression: 1.Septic shock, improved. 2.Acute kidney injury with oliguria, improved. 3.Anemia, unspecified. 4.Non-STEMI. 5.Coronary artery disease. 6.Hypertension. 7.Hyperlipidemia. 8.Senile dementia. 9.Generalized weakness. 10.Debility. Plan: Patient has shown significant improvement in last 12-24 hours and we will go ahead and continu e IV fluid, but reduce rate to 50 cc/hour. Continue current antibiotic, which is cefepime. He is on Lovenox 80 mg subcutaneous injection daily. We will continue that for another day or 2 days and the n reduce dose to prophylactic dose 40 mg daily. At appropriate time, we will consider changing from IV antibiotic to oral antibiotic. We will consult Physical Therapy and Occupational Therapy. Detail s were discussed with auger press operator today. We will continue to follow with private branch exchange operator as well. Ech ocardiogram had shown normal ejection fraction with some diastolic dysfunction. All the details were discussed with family member today. We also talked about possibility of going to inpatient rehab on fifth floor versus going to [facility] and [facility], so I have requested social service consultation for michelle t as well. The patient is medically stable and no longer requires ICU level of care and we will chaidez sfer him to medical floor. See copy of transfer order for more details. JOSETTE/MODL Voice ID: [id number] Report ID: [id number]
[2024-03-26] MEDS: POTASSIUM PHOS IN 0.9 % NACL 15 MMOL/250 ML BAG IV ONE (20:49)
[2024-03-26] MEDS ORDERED: POTASSIUM CL SA 10 MEQ TAB PO ONE (21:00)
[2024-03-27 05:05] LABS: Absolute Basophils 0.1 K/uL (0-0.5); Absolute Eosinophils 0.3 K/uL (0-0.5); Absolute Lymphocytes (CBC) 1.1 K/uL (0.7-4.9); Absolute Monocytes 0.4 K/uL (0.1-1.3); Basophils % 0.7 % (0-1.3); Eosinophils % 2.1 % (0-4.4); Hematocrit 32.1 % (39.6-49.0); Lymphocytes % 8.7 % (15.3-44.8); MCHC 34.2 g/dL (32.0-36.0); MCV 87.9 fL (80-100); MPV 8.1 fL (7.6-11.3); Monocytes % 3.4 % (3.3-12.3); Neutrophils % 85.1 % (41.7-73.7); Nucleated Red Blood Cells % 0.1 % (0-0); Platelets 137 thou/uL (152-406); RBC Red Blood Cell Count 3.65 M/uL (4.33-5.43); Red Cell Distribution Width 14.3 % (12.1-15.2)
[2024-03-27 05:28] LABS: Anion Gap 7.5 mEq/L (5.0-15.0); Magnesium 1.9 mg/dL (1.6-2.4); Phosphorus 2.5 mg/dL (2.5-4.9); Potassium 3.5 mEq/L (3.5-5.1)
[2024-03-27] MEDS: POTASS/SODIUM PHOSPHATE 1 PKT POWD.PACK PO SCH (09:11)
[2024-03-27] MEDS: POTASSIUM 25 MEQ EFFERV TAB PO ONE (09:11)
[2024-03-27] MEDS: NA CHLORIDE 0.9% 1,000 ML IV SCH (09:27)
--- NOTE | 2024-03-27 13:17 | PN ---
Date of Progress Note: 03/27/2024 Subjective: The patient was admitted to the hospital with sepsis, pneumonia, and septic shock. The patient had acute kidney injury secondary to cardiorenal and septic toxic ATN, poor perfusion ATN. T he patient recovered very well. The patient transferred out from the ICU. Objective: Vital Signs: Blood pressure 159/76, pulse of 72, afebrile. Chest: Clear to auscultation. Heart: S1, S2. Regular. Abdomen: Soft, nontender. Extremities: No edema. Neurologic: Alert. No focality. Laboratory Data: Hemoglobin 11, sodium 142, potassium 3.5, bicarb 24, BUN 25, creatinine 1, GFR 67, calcium 8.2, phosphorus 2.5, magnesium 1.9. Current Medications: The patient on, it includes cefepime, Lovenox, Namenda, Pepcid, IV fluid. Assessment And Plan: 1.Acute kidney injury, multifactorial, secondary to toxic acute tubular necrosis, poor perfusion acu te tubular necrosis and cardiorenal, recovered, resolved. Normal volume. I am going to discontinue IV fluid. We will continue to monitor. 2.Urinary tract infection with multiple renal cysts. The patient was started on cefepime. It looks responding, sensitive to Escherichia coli. We are going to continue current antibiotic. If it show any poor response, patient can be switched to quinolone for better penetration. 3.Shock, multifactorial, septic shock/cardiogenic shock, recovered, complicated with acute kidney in jury secondary to poor perfusion acute tubular necrosis, recovering, resolved. Discontinue IV fluid. 4.Renal cyst. We will monitor. No need for any intervention for the time being. 5.Urinary tract infection with urosepsis/pneumonia. Continue current antibiotic. 6.Hypokalemia, hypomagnesemia, hypophosphatemia. Status post supplement, resolved. MA/MODL Voice ID: [id number] Report ID: [id number]
[2024-03-27] MEDS: ENOXAPARIN 40 MG/0.4 ML SQ SCH (20:41)
[2024-03-27] MEDS: MEMANTINE HCL 10 MG TABLET PO SCH (20:42)
[2024-03-27 20:46] VITALS: O2SAT 95
--- NOTE | 2024-03-27 20:53 | PN ---
Date of Progress Note: 03/27/2024 Subjective: Seen by bedside. Patient does not answer questions. He has advanced dementia, however, appears to be stable. No fever. No chest pain. Review of Systems: No chest pain, shortness of breath, orthopnea, or cough. He is just pleasantly confused. No symptom s. Objective: Vital Signs: Reviewed. Head and Neck: Pupils are equal, reactive to light. Intact eye movements. No JVD. No cervical lym phadenopathy. Neck is supple. Thyroid is not enlarged. Lungs: Decreased breathing sounds bilaterally. No accessory muscle use or muscle retraction. Heart: Regular rate and rhythm. No extra sounds. Abdomen: Soft, nontender. Bowel sounds positive. No organomegaly. No masses or hernia. No rigidi ty or rebound. Extremities: No edema, clubbing, or cyanosis. Intact pulses. Skin: No rash. No nodule. Neurologic: Alert, awake, oriented x3. No acute focal deficits appreciated. Investigations: Troponin went down to 3862, BUN 25, creatinine 1.0, and the hemoglobin is 11. Assessment And Recommendations: 1.Elevated troponin. This is definitely demand ischemia. Echo is normal without wall motion abnorm alities and troponin is trending down. He has advanced dementia. Given that the echo is showing nor mal ejection fraction, the patient is asymptomatic, I recommend no further cardiac workup, given that he has advanced dementia. Discussed with his family and they agreed with the plan, but they want to do a final meeting amongst the family and then decide. If family wants further workup, then we will proceed with the Lexiscan nuclear stress test, but at this point, I think medical management is a mu ch better option. Continue aspirin and recommend low-dose beta-opal when the blood pressure allow s and the high-dose statin. 2.Dyslipidemia. Continue statin. 3.Shock, probably septic, responding very well to Rocephin. Source of infection probably urine. He is stable to continue current management. 4.Acute renal failure due to shock condition. This is resolved. SR/MODL Voice ID: [id number] Report ID: [id number]
[2024-03-27] MEDS: METOPROLOL XL 25 MG TAB PO SCH (21:05)
[2024-03-28 06:33] LABS: Absolute Basophils 0.1 K/uL (0-0.5); Absolute Eosinophils 0.2 K/uL (0-0.5); Absolute Monocytes 0.4 K/uL (0.1-1.3); Basophils % 0.9 % (0-1.3); Eosinophils % 2.4 % (0-4.4); Hematocrit 34.8 % (39.6-49.0); Lymphocytes % 10.1 % (15.3-44.8); MCH 30.2 pg (27.0-35.0); MCHC 34.4 g/dL (32.0-36.0); MCV 87.7 fL (80-100); MPV 8.8 fL (7.6-11.3); Monocytes % 4.2 % (3.3-12.3); Neutrophils % 82.4 % (41.7-73.7); Nucleated Red Blood Cells % 0.1 % (0-0); Platelets 145 thou/uL (152-406); RBC Red Blood Cell Count 3.96 M/uL (4.33-5.43); Red Cell Distribution Width 14.5 % (12.1-15.2)
[2024-03-28 06:56] LABS: Anion Gap 6.7 mEq/L (5.0-15.0); Magnesium 1.8 mg/dL (1.6-2.4); Potassium 3.7 mEq/L (3.5-5.1)
[2024-03-28] MEDS: POTASSIUM CL SA 10 MEQ TAB PO ONE (09:17)
--- NOTE | 2024-03-28 10:08 | PN ---
Date of Progress Note: 03/27/2024 Subjective: Patient was seen this morning for followup. No new complaints or problems reported by h im. His son and were present with him at bedside. Denies any new complaints. No abdominal faizan n, chest pain, or shortness of breath. His appetite is good. Objective: Vital Signs: Reviewed. HEENT: Unremarkable. Lungs: Clear to auscultation. Heart: Sounds normal. Abdomen: Soft. Bowel sounds normal. No guarding, rigidity, tenderness, distention. Extremities: No leg edema. Laboratory Data: White count 12.9, hemoglobin 11, platelets 137. Sodium 142, potassium 3.5, chlorid e 114, bicarb 24, BUN 25, creatinine 1.08, glucose 93, magnesium 1.9. Impression: 1.Septic shock. 2.Urinary tract infection. 3.Generalized weakness. 4.Hypertension. 5.Senile dementia. Plan: We will go ahead and continue Seroquel per order. Patient's blood pressure has started to go up today, so we will restart his metoprolol. Physical Therapy to work with the patient. We are awai allisong on insurance company's approval for patient to go to inpatient rehab. Meanwhile, we will continue current antibiotics. I will see him tomorrow for jeannette simon. JOSETTE/MODL Voice ID: [id number] Report ID: [id number]
--- NOTE | 2024-03-28 20:23 | PN ---
Date of Progress Note: 03/28/2024 Subjective: The patient was admitted to the hospital because of severe respiratory failure. He was found to have pneumonia, sepsis, as well as septic shock. The patient was admitted to the ICU and Ne phrology consultation was requested for acute kidney injury secondary to cardiorenal syndrome and sep tic toxic ATN, poor perfusion ATN, and hyperazotemia due to severe prerenal azotemia secondary to sep tic shock. The patient is feeling better. Blood pressure is stable. Review of Systems: Denies chest pain, palpitation. Physical Examination: Lungs: Clear to auscultation bilaterally. Heart: S1, S2. Abdomen: Soft, benign. Extremities: No edema. Laboratory Data: BUN is 25, creatinine 1, bicarbonate 24, potassium 3.5, sodium 142, hemoglobin 11. Assessment And Plan: 1.Acute kidney injury, multifactorial, secondary to toxic acute tubular necrosis with poor perfusion and cardiorenal syndrome. Renal function has improved to baseline. Continue to monitor with blood work. Renal panel will be checked daily. Continue IV fluids. 2.Urinary tract infection with multiple renal cysts. The patient was started on cefepime and he is responding to infection, Escherichia coli. Continue current antibiotics. 3.Shock, multifactorial, septic. The patient is hemodynamically stable and does not require pressor s. 4.Renal cysts. Monitor outpatient. 5.Urinary tract infection, urosepsis, pneumonia. Continue antibiotics. 6.Hypokalemia, hypomagnesemia, hypophosphatemia, status post supplementation and resolved. EB/MODL Voice ID: [id number] Report ID: [id number]
[2024-03-28] MEDS ORDERED: METOPROLOL XL 25 MG TAB PO SCH (20:39)
[2024-03-28] MEDS: QUETIAPINE 25 MG TAB PO SCH (21:09)
--- NOTE | 2024-03-28 22:49 | PN ---
Date of Progress Note: 03/28/2024 Subjective: Seen by bedside, doing well, sitting in a chair. No chest pain. No shortness of breath . On echo, ejection fraction is normal. Review of Systems: No chest pain, shortness of breath, orthopnea, cough. No nausea, vomiting, diarrhea. All other syst ems reviewed, they are negative. Physical Examination: Vital Signs: Reviewed. Head and Neck: Pupils are equal, reactive to light. Intact eye movements. No JVD. No cervical lym phadenopathy. Neck is supple. Thyroid is not enlarged. Lungs: Clear to auscultation bilaterally. No rhonchi, wheezing, or crackles. No accessory muscle u se. Heart: Regular rate and rhythm. No extra sounds. Abdomen: Soft, nontender. Bowel sounds positive. No organomegaly. No masses or hernia. No rigidi ty or rebound. Extremities: No clubbing, cyanosis. Intact pulses. Skin: No rash. No nodule. Neurologic: Alert, awake, oriented x3. No acute focal deficits appreciated. Investigations: BUN is 18, creatinine 1.1. Assessment/recommendation: 1.Elevated troponin. This is demand ischemia. Ejection fraction is normal on echo. The patient elizabeth s advanced dementia. No further cardiac workup is recommended at this point. I had a long discussio n with the family. Given that his heart function is normal, he has no chest pain, we will monitor. Recommend baby aspirin, beta-opal, and statin. 2.Dyslipidemia, continue statin. 3.Sepsis and septic shock due to UTI, on antibiotics, recovered very well. 4.Acute renal failure, resolved. Cardiology will sign off and we will see him on an as-needed basis. SR/MODL Voice ID: [id number] Report ID: [id number]
[2024-03-29 08:58] VITALS: BP 150/79; TEMP 97.2
--- NOTE | 2024-03-29 09:14 | PN ---
Date of Progress Note: 03/28/2024 Subjective: The patient was seen this morning for followup. He was sitting at the bedside. Family member was present with him at bedside in the room. The patient did not sleep well last night at all as reported by the family member. He denies any specific complaints. Participating well with physi katy therapy. Ambulates with a walker as I understand. Objective: Vital Signs: Reviewed. HEENT: Unremarkable. Lungs: Clear to auscultation. Heart: Sounds normal. Abdomen: Soft. Bowel sounds normal. No guarding, rigidity, distention. Extremities: No leg edema. Laboratory Data: White count 9.7, hemoglobin 12, platelets 145. Sodium 140, potassium 3.7, chloride 111, bicarb 26, BUN 18, creatinine 1.01, glucose 87, magnesium 1.8. Impression: 1.Septic shock. 2.Urinary tract infection. 3.Hypertension. 4.Senile dementia. 5.Anemia, unspecified. Plan: We will go ahead and continue current antibiotic. The patient to continue to work with Physic al Therapy. We are waiting on insurance company's decision regarding request for inpatient rehab. M eanwhile, continue physical therapy and current medical management. We will go ahead and increase th e dose of Seroquel from 25 mg at bedtime to 50 mg at bedtime starting tonight. Continue current antihypertensive medication, metoprolol per order. Monitor blood pressure and adjust medication as i t becomes necessary. JOSETTE/MODL Voice ID: [id number] Report ID: [id number]
[2024-04-06 18:33] LABS: C-ANCA Anti-Proteinase 3 <1.0 AI (<1.0); P-ANCA Anti-Myeloperoxidase Ab <1.0 AI (<1.0)
== END 2024-03-29 10:20 | disposition home or self-care (01) | DRG 871 ==
LOC: ER 18:09 → ERHOLD 20:15 → 3RD-ICU 03-25 13:24 → 2ND 03-26 14:48
PROVIDERS: ADMIT Internal Medicine; ATTEND Internal Medicine
PROC: 0T9B70Z Drainage of Bladder with Drainage Device, Via Natural or Artificial Opening (ICD-10-PCS; principal; 2024-03-24)
PROC: 3E033XZ Introduction of Vasopressor into Peripheral Vein, Percutaneous Approach (ICD-10-PCS; 2024-03-24)
DX: A41.9 Sepsis, unspecified organism (principal); G92.9 Unspecified toxic encephalopathy; R65.21 Severe sepsis with septic shock; R57.0 Cardiogenic shock; N17.0 Acute kidney failure with tubular necrosis; I21.A1 Myocardial infarction type 2; J18.9 Pneumonia, unspecified organism; N39.0 Urinary tract infection, site not specified; Q61.3 Polycystic kidney, unspecified; E87.6 Hypokalemia; E78.5 Hyperlipidemia, unspecified; I12.9 Hypertensive chronic kidney disease with stage 1 through stage 4 chronic kidney disease, or unspecified chronic kidney disease; N18.31 Chronic kidney disease, stage 3a; D63.1 Anemia in chronic kidney disease; E86.9 Volume depletion, unspecified; E83.39 Other disorders of phosphorus metabolism; G47.00 Insomnia, unspecified; I25.10 Atherosclerotic heart disease of native coronary artery without angina pectoris; K57.90 Diverticulosis of intestine, part unspecified, without perforation or abscess without bleeding; F03.90 Unspecified dementia, unspecified severity, without behavioral disturbance, psychotic disturbance, mood disturbance, and anxiety; R34 Anuria and oliguria; Z11.52 Encounter for screening for COVID-19; Z90.49 Acquired absence of other specified parts of digestive tract
CPT/HCPCS: 36415; 70450; 71045; 71250; 74176; 80048; 80053; 80061; 81001; 82550; 82947; 83605; 83735; 83880; 84100; 84132; 84484; 85025; 85610; 85730; 86021; 87040; 87077; 87086; 87088; 87186; 87811; 93005; 93306; 97116; 97161; 97530; 99285; J0692; J1650; J3475; J7030; J7040; J7050; J7799; P9047

== ENCOUNTER 2024-08-08 12:40 | Inpatient (IN) | payer OTHER ==
[2024-08-08 13:18] VITALS: BMI 29.2
[2024-08-08 16:02] LABS: Absolute Basophils 0.1 K/uL (0-0.5); Absolute Eosinophils 0.3 K/uL (0-0.5); Absolute Monocytes 0.5 K/uL (0.1-1.3); Absolute Neutrophil 5.5 K/uL (1.8-8.0); Basophils % 1.1 % (0-1.3); Eosinophils % 3.6 % (0-4.4); Hematocrit 33.2 % (39.6-49.0); Hemoglobin 11.3 g/dL (13.6-17.9); Lymphocytes % 23.5 % (15.3-44.8); MCH 29.7 pg (27.0-35.0); MCHC 34.1 g/dL (32.0-36.0); MCV 87.3 fL (80-100); Monocytes % 6.3 % (3.3-12.3); Neutrophils % 65.5 % (41.7-73.7); Nucleated Red Blood Cells % 0.1 % (0-0); Platelets 270 thou/uL (152-406); Red Cell Distribution Width 14.4 % (12.1-15.2)
[2024-08-08 16:26] LABS: Albumin 2.6 g/dL (3.4-5.0); Albumin/Globulin Ratio 0.6 (1.1-1.8); Anion Gap 8.3 mEq/L (5.0-15.0); Bilirubin Total 0.3 mg/dL (0.2-1.0); Globulin 4.3 g/dL (2.3-3.5); Potassium 3.3 mEq/L (3.5-5.1); Protein, Total 6.9 g/dL (6.4-8.2); Thyroid Stimulating Hormone 3.4 uIU/mL (0.358-3.740); Troponin High Sensitivity 26.1 pg/mL (<58.9)
[2024-08-08] MEDS: FUROSEMIDE 20 MG/ 2ML VIAL IV ONE (16:37)
[2024-08-08] MEDS: FUROSEMIDE 20 MG/ 2ML VIAL IV SCH (17:34)
[2024-08-08] MEDS: TRAZODONE 50 MG TABLET PO SCH (20:14)
[2024-08-08] MEDS: QUETIAPINE 25 MG TAB PO SCH (20:14)
[2024-08-08] MEDS: DOXYCYCLINE 100 MG in NA CHLORIDE 0.9% 100 ML IVPB SCH (20:15)
[2024-08-08] MEDS: POTASSIUM 25 MEQ EFFERV TAB PO ONE (20:15)
[2024-08-08 21:28] VITALS: O2SAT 99
--- NOTE | 2024-08-09 07:40 | RAD REPORT ---
EXAMINATION: ONE VIEW CHEST XR CLINICAL INDICATION: CHF TECHNIQUE: Frontal chest projection is submitted. Examination is limited by patient positioning and t echnique. COMPARISON: 03/24/2024 FINDINGS: Ntac-hl-wihxtkau bilateral pulmonary opacities probably representing pulmonary edema. Trace pleural f luid bilaterally. The heart is moderately enlarged. No displaced fractures identified. IMPRESSION: [id number]-[id number] CHF versus volume overload pattern.
--- NOTE | 2024-08-09 07:44 | HP ---
Date of Admission: 08/08/2024 Chief Complaint: Leg swelling. History Of Present Illness: This is an 84-year-old male patient who was brought into office by his f darreny member who are his son and caregiver with worsening of leg swelling problem. He was seen at of [facility] about a week ago for the leg swelling problem, and at that time, his hydrochlorothiazide was dis continued and furosemide was started. Today, family contacted office that he has some fluid seeping out of his leg along with worsening of the leg swelling, so he was asked to come in to office, and af ter he was evaluated, he was admitted to the hospital. The patient denies any shortness of breath, b ut family reported that today he was falling asleep during daytime easily. Denies any chest pain. N o paroxysmal nocturnal dyspnea or orthopnea. His leg swelling has gotten worse in last 1 week even a fter we changed his diuretic medication. He also has some redness of the skin of both lower extremit ies, but no fever. After he was evaluated, decision was made to admit him to the hospital with acute exacerbation of congestive heart failure problem Allergies: NO KNOWN ALLERGIES. Medications: Furosemide 20 mg daily, aspirin 81 mg daily, atorvastatin 40 mg daily at bedtime, metop rolol succinate 25 mg daily in the morning, Seroquel 50 mg 2 times a day, and trazodone 100 mg daily at bedtime. Review of Systems: Cardiovascular: As mentioned above. REED REPAIRER: Impaired memory. All other systems reviewed and negative. Past Medical History: Significant for hypertension, hyperlipidemia, diverticulosis, renal cyst, inso mnia, senile dementia, coronary artery disease, chronic kidney disease stage 3A. Past Surgical History: Significant for tonsillectomy, cholecystectomy, appendectomy, and right wrist surgery. Family History: Father , had Parkinson's disease. Mother , had lung cancer. Brother , had ALS. Social History: Prior history of smoking, not at present time. Use of alcohol negative. Physical Examination: Vital Signs: Blood pressure 108/63, pulse 77, temperature 97.6, respiratory rate 16. Weight 190.8 p ounds, height 68 inches. General: Awake, alert, oriented, not in distress. HEENT: Head atraumatic, normocephalic. Conjunctivae nonerythematous. Sclerae white. Mouth, no thr ush or edema noted. Ears/Nose, no mass, lesion, discharge noted. Neck: Supple. No JVD, lymph nodes, bruit, thyromegaly noted. Lungs: Presence of crackles in both basal lung fuentes. Not using accessory muscle for respiration. Heart: Normal heart sounds, no murmur or gallop. Abdomen: Soft, bowel sounds normal. No guarding, rigidity, tenderness, mass, hepatosplenomegaly, dis tention, or bruit noted. Extremities: Bilateral 3+ leg edema from knee all the way down to his feet and both lower 2/3rd leg has slightly pink, warm skin with some multiple raised red areas, likely due to significant leg swell ing problem. There are a few superficial open areas in form of loss of epidermal skin with some evid ence of moist skin around it due to clear discharge from those areas. Skin: The patient's buttock examination shows the patient has decubitus area stage over _ region. Lymphatics: No lymph node enlargement in neck, supraclavicular, infraclavicular region. Neuro: No focal neurological deficit. Chest: Unremarkable. External Genitalia: Deferred. Rectal: Deferred. Laboratory Data: WBC 8.4, hemoglobin 11.3, platelets 270. Sodium 140, potassium 3.3, chloride 104, bicarb 31, BUN 30, creatinine 1.23, glucose 109. Liver function tests normal. Troponin 26.1. ProBN P 1985. Impression: 1.Congestive heart failure, chronic, diastolic, with acute exacerbation. 2.Coronary artery disease. 3.Hypertension. 4.Hyperlipidemia. 5.Senile dementia. 6.Insomnia. 7.Chronic kidney disease stage 3A. 8.Diverticulosis. 9.Cellulitis, bilateral lower extremity. 10.Decubitus ulcer, buttock. Plan: We will go ahead and admit the patient to hospital for further evaluation and management of th is problem. The patient is appropriate for inpatient and is expected to spend 2 midnights in [facility]. We will start the patient on IV Lasix 20 mg 2 times a day for treatment of congestive heart failu re and monitor his electrolytes, renal function. We will get echo with Doppler tomorrow to look at h is left ventricular ejection fraction and follow up on his chest x-ray tomorrow. For coronary artery disease, no need for further intervention. We will continue his aspirin therapy and metoprolol at t his time. For hyperlipidemia, we will continue his statin therapy. No need for further intervention . For hypertension, we will continue his metoprolol. Monitor blood pressure. Make adjustment on me dication as it becomes necessary. Chronic kidney disease stage 3A will not require any intervention except monitoring, especially with use of diuretic medication. Details and plan of treatment discuss ed with the patient and the patient's son who was at bedside. Total time spent today 80 minutes incl uding evaluation and management, review of prior hospital record, review of prior office visit record , and making arrangements for hospital admission. JOSETTE/MODL Voice ID: [id number]
[2024-08-09] MEDS: POTASSIUM 25 MEQ EFFERV TAB PO ONE (08:49)
--- NOTE | 2024-08-09 13:10 | CON ---
Date of Consultation: 08/09/2024 Reason For Service: Right buttock pressure ulcer. History Of Present Illness: This is a case of an 84-year-old patient with multiple medical problems, admitted to the hospital and found to have also a right buttock pressure ulcer. Surgical consult wa s obtained for evaluation. He denies any trauma. Denies any specific reason for this. Allergies: NO KNOWN. Medications: Reviewed including Seroquel and trazodone. Family History: Noncontributory. Social History: He does not smoke. He does not drink alcohol. Surgeries: Cholecystectomy, tonsillectomy, appendectomy, right wrist surgery. Review of Systems: No shortness of breath. No chest pain today, although he has some history of leg swelling in the pas t with no Homans signs. No calf tenderness. Ten points otherwise unremarkable. Physical Examination: Vital Signs: Reviewed. General: Patient is awake, alert. HEENT: Pupils are equal and reactive. Neck: Supple. Chest: Clear. Abdomen: Soft and depressible. Extremities: Good capillary refill. No Homans signs. Peripheral pulses present. No cyanosis. Integumentary: On the right calf, the patient has stage II pressure ulcer on the area of the right b uttock, it is clean. No cellulitis present. No fluctuance seen. No crepitus. It is about 2 x 2 cm in size. Laboratory Data: Blood work shows WBC count of 8.4 with hemoglobin of 11.3. Potassium stat 3.3. Assessment: This is an 84-year-old patient with a pressure ulcer on the right buttock. We explained to him the importance of offloading and nutrition. In the meantime, we are going to use a right but tock clean with Vashe. We then applied Sari just moistened a little bit with saline, gauze and foa m daily and p.r.n. for soilage. When he gets discharged, we will like the patient to be seen by me naz solomon in my office. He can call for appointment [phone] or at the [facility] here at [facility] that I am their Tuesdays and Wednesdays whatever is more convenient for him. BENITO/CANELO Voice ID: [id number] Report ID: [id number]
--- NOTE | 2024-08-09 15:28 | ECHO ---
HEIGHT: 5 ft 8 in WEIGHT: 192 lb 0 oz DATE OF STUDY: 08/09/[address]: Wilfred Durán MD 2-DIMENSIONAL: YES M.MODE: YES DOPPLER: YES COLOR FLOW: YES TDS: NO PORTABLE: YES DEFINITY: NO BUBBLE STUDY: NO DIAGNOSIS: CONGESTIVE HEART FAILURE CARDIAC HISTORY: CATHERIZATION: NO SURGERY: NO PROSTHETIC VALVE: NO PACEMAKER: NO MEASUREMENTS (cm) DIASTOLIC (NORMALS) SYSTOLIC (NORMALS) IVSd 1.1 (0.6-1.2) LA Diam 2.7 (1.9-4.0) LVEF 60-65% LVIDd 4.5 (3.5-5.7) LVIDs 2.8 (2.0-3.5) %FS 38% LVPWd 1.2 (0.6-1.2) Ao Diam 2.9 (2.0-3.7) 2 DIMENSIONAL ASSESSMENT: RIGHT ATRIUM: NORMAL LEFT ATRIUM: MILDLY DILATED RIGHT VENTRICLE: NORMAL LEFT VENTRICLE: NORMAL TRICUSPID VALVE: TRACE TRICUSPID REGURGITATION MITRAL VALVE: MODERATE MITRAL ANNULAR CALCIFICATION, TRACE MITRAL REGURGITATION PULMONIC VALVE: NORMAL AORTIC VALVE: MILD AORTIC REGURGITATION PERICARDIAL EFFUSION: NONE AORTIC ROOT: NORMAL LEFT VENTRICULAR WALL MOTION: NORMAL. DOPPLER/COLOR FLOW: DIASTOLIC DYSFUNCTION. COMMENTS: 1. NORMAL LEFT VENTRICULAR SYSTOLIC FUNCTION. LEFT VENTRICULAR EJECTION FRACTION 60-65%. NORMAL WALL MOTION. 2. DIASTOLIC DYSFUNCTION. 3. INFERIOR VENA CAVA NOT VISUALIZED. TECHNOLOGIST: IRAIDA CHRISTIANSON
[2024-08-09] MEDS: POTASSIUM CL SA 10 MEQ TAB PO ONE (20:22)
--- NOTE | 2024-08-09 20:38 | PN ---
Date of Progress Note: 08/09/2024 Subjective: The patient was seen this morning for followup. He was lying in bed, not in any distres s. He was worrying about his and was wondering if she made it home safe last night or not, and was wondering if she would come back to see him today, and I reassured him about that. He denies any chest pain, shortness of breath. His leg swelling has significantly improved overnight/this morning when I saw him. Objective: Vital Signs: Reviewed. HEENT: Unremarkable. Lungs: Clear to auscultation except minimal basal rales, which has improved compared to yesterday. Heart: Sounds normal. Abdomen: Soft. Bowel sounds normal. No guarding, rigidity, tenderness, distention. Extremities: Very trace leg edema, this has shown significant improvement since yesterday. Redness of both lower extremities is also significantly better. Multiple areas, which look like blister type of area from leg swelling, also have shown significant improvement. Impression: 1.Congestive heart failure, chronic, diastolic, with acute exacerbation. 2.Cellulitis, legs. 3.Hypertension. 4.Senile dementia. Plan: We will go ahead and continue current antibiotic, which is doxycycline. Continue current diur etic medication with furosemide. Echo with Doppler will be done today. The patient has right buttoc k stage II decubitus ulcer, and Dr. Blanco was consulted for further evaluation and management, and I did communicate details with him as well today. I will see him jose carlos rrow for followup. JOSETTE/MODL Voice ID: [id number] Report ID: [id number]
[2024-08-10 07:18] LABS: Anion Gap 5.6 mEq/L (5.0-15.0); Potassium 3.6 mEq/L (3.5-5.1)
[2024-08-10 07:45] VITALS: BP 119/57
[2024-08-10 08:12] VITALS: TEMP 97.8
--- NOTE | 2024-08-11 07:59 | DS ---
Date of Discharge: 08/10/2024 Disposition: Discharged to go home. Physical Examination: HEENT: Unremarkable. Lungs: Clear to auscultation. Heart: Sounds normal. Abdomen: Soft, bowel sounds normal. No guarding, rigidity, tenderness, distention. Extremities: No leg edema. Laboratory Data: Upon admission, sodium 140, potassium 3.3, chloride 104, bicarb 31, BUN 30, creatin ine 1.23, glucose 109. Liver function tests unremarkable. His troponin was 26.1. ProBNP 1984. Tod ay, sodium 136, potassium 3.6, chloride 100, bicarb 34, BUN 28, creatinine 1.47, glucose 98. WBC upo n admission, white count 8.4, hemoglobin 11.3, platelets 270. Hospital Course: This is an 84-year-old male patient who lives at home, was admitted to the hospital with worsening problem with leg swelling and some seepage of clear fluid from his leg. Please see d reynold H and P for more information. After the patient was evaluated in office, he was admitted to hospital with problem of congestive heart failure. There was also evidence of some cellulitis involv ing both lower extremities. We started him on doxycycline and IV Lasix. Although home medications w ere continued, he responded very well to therapy. His leg swelling has resolved now and area of cell ulitis also has significantly improved from both lower extremities. He had multiple blister type of area on his leg due to extensive leg swelling that has also resolved. Echocardiogram was done during this hospitalization showing normal ejection fraction of 60% to 65% and diastolic dysfunction. Dr. Blanco was consulted for decubitus care management and he did evaluate the patient and he has provi ded specific orders for wound care dressing changes and Social Service was consulted to make arrangem ents for home health care to assist with this wound care dressing changes. Final Diagnoses: 1.Congestive heart failure, chronic, diastolic, with acute exacerbation. 2.Coronary artery disease. 3.Hypertension. 4.Hyperlipidemia. 5.Senile dementia. 6.Insomnia. 7.Chronic kidney disease stage IIIA. 8.Diverticulosis. 9.Cellulitis, bilateral lower extremity. 10.Decubitus ulcer, buttock. Discharge Medications And Instructions: 1.Continue all prior home medications. 2.Change furosemide 20 mg tablet take 2 tablets by mouth daily. 3.Start doxycycline 100 mg 2 times a day with food for 1 week, avoid direct sunlight exposure while on this antibiotic for 1 week. 4.Follow up at my office next week. Total time spent 45 minutes. JOSETTE/MODL Voice ID: [id number] Report ID: [id number]
== END 2024-08-10 10:48 | disposition home health service (06) | DRG 291 ==
LOC: 4TH 12:40
PROVIDERS: ADMIT Internal Medicine; ATTEND Internal Medicine
DX: I13.0 Hypertensive heart and chronic kidney disease with heart failure and stage 1 through stage 4 chronic kidney disease, or unspecified chronic kidney disease (principal); I50.33 Acute on chronic diastolic (congestive) heart failure; L03.116 Cellulitis of left lower limb; L03.115 Cellulitis of right lower limb; N18.31 Chronic kidney disease, stage 3a; E78.5 Hyperlipidemia, unspecified; G47.00 Insomnia, unspecified; L89.312 Pressure ulcer of right buttock, stage 2; I25.10 Atherosclerotic heart disease of native coronary artery without angina pectoris; F03.90 Unspecified dementia, unspecified severity, without behavioral disturbance, psychotic disturbance, mood disturbance, and anxiety; K57.90 Diverticulosis of intestine, part unspecified, without perforation or abscess without bleeding; Z90.49 Acquired absence of other specified parts of digestive tract
CPT/HCPCS: 36415; 71045; 80048; 80053; 83735; 83880; 84132; 84443; 84484; 85025; 93306; J1940